=== PATIENT | male | born 1945 | race Caucasian/White ===

== ENCOUNTER → 2017-05-06 | Outpatient (CLI) | payer OTHER, MEDICARE ==
[~2017-05-06] MED LIST: REGADENOSON 0.4 MG/5 ML DISP.SYRIN. IV
== END | disposition home or self-care (01) ==
LOC: ECHO 08:06
DX: I36.1 Nonrheumatic tricuspid (valve) insufficiency (principal); I27.20 Pulmonary hypertension, unspecified; I51.7 Cardiomegaly; I10 Essential (primary) hypertension; J44.9 Chronic obstructive pulmonary disease, unspecified; Z79.01 Long term (current) use of anticoagulants; Z87.891 Personal history of nicotine dependence
CPT/HCPCS: 78452; 93306; 96374; 96376

== ENCOUNTER 2018-06-16 14:18 | Inpatient (IN) | payer OTHER ==
[~2018-06-16] VITALS: Ht 188 cm; Wt 121.8 kg
[~2018-06-16 14:18] MED LIST changes: +ALBU2.5V8 INH; +ASPI-630 PO; +ENOX40DI3 SQ; +ERGO500027 PO; +FERR325T14 PO; +HYDR-2765 PO; +LOSA1TAB22 PO; +LOSA1TAB25 PO; +MULT1TAB90 PO; +PANT40TA3 PO; +POLY2500 PO; +POTA20TA4 PO; -REGADENOSON 0.4 MG/5 ML DISP.SYRIN. IV
[2018-06-16] MEDS ORDERED: VANCOMYCIN PER PHARMACY MC ONE (17:00)
[2018-06-16] MEDS ORDERED: PIPERACILLIN/TAZOBACTAM 4.5 GM in IV NORMAL SALINE 100ML 100 ML IV ONE (17:00)
--- NOTE | 2018-06-16 17:06 | PHYS DOC ---
Past Medical History Past Medical History: Asthma, Hypertension (ISAIAS OLGUIN APRN) Past Surgical History: Knee Replacement, Other Additional Past Surgical Histo: RT ANKLE-2018 (ISAIAS OLGUIN APRN) Alcohol Use: Heavy Drug Use: None (ISAIAS OLGUIN APRN) Adult General Chief Complaint Chief Complaint: ANKLE PROBLEM HPI HPI Patient is a 72 year old male with history of hypertension, who presents to the ED today with an infected surgical wound. Patient states he had right ankle surgery a month ago. Patient states he has had redness and drainage from the ankle for roughly a month. He states today the home health nurse came and assessed his ankle and felt the redness has gotten worse and requested him to come to the emergency room to be evaluated. Patient states he saw the orthopedic doctor 2 months ago. Patient denies any fever. (ISAIAS OLGUIN APRN) Review of Systems Review of Systems Constitutional: Denies fever or chills [] Eyes: Denies change in visual acuity, redness, or eye pain [] HENT: Denies nasal congestion or sore throat [] Respiratory: Denies cough or shortness of breath [] Cardiovascular: No additional information not addressed in HPI [] GI: Denies abdominal pain, nausea, vomiting, bloody stools or diarrhea [] : Denies dysuria or hematuria [] Musculoskeletal: Reports right ankle redness. Integument: Denies rash or skin lesions [] Neurologic: Denies headache, focal weakness or sensory changes [] All other systems were reviewed and found to be within normal limits, except as documented in this note. (ISAIAS OLGUIN APRN) Current Medications Current Medications Current Medications Medications (Trade) Dose Ordered Sig/Liseth Start Time Stop Time Status Last Admin Dose Admin Morphine Sulfate (Morphine Sulfate) 2 mg PRN Q15MIN PRN 06/16/18 17:00 06/17/18 16:59 06/16/18 19:48 2 MG Piperacillin Sod/ Tazobactam Sod 4.5 gm/Sodium Chloride 100 ml @ 200 mls/hr 1X ONCE 06/16/18 17:00 06/16/18 17:29 DC 06/16/18 17:39 200 MLS/HR Sodium Chloride 1,000 ml @ 2,460 mls/hr Q25M 06/16/18 16:56 06/16/18 17:56 DC 06/16/18 18:38 2,460 MLS/HR Vancomycin HCl (Vanco Per Pharmacy) 1 each 1X ONCE 06/16/18 17:00 06/16/18 17:01 UNV Vancomycin HCl 2 gm/Sodium Chloride 500 ml @ 250 mls/hr 1X ONCE 06/16/18 17:15 06/16/18 19:14 DC 06/16/18 18:32 250 MLS/HR (GEORGE JEFFERY MD) Allergies Allergies Allergies Coded Allergies Type Severity Reaction Last Updated Verified shellfish derived Allergy Unknown makes him drowsy 05/07/17 Yes (GEORGE JEFFERY MD) Physical Exam Physical Exam Constitutional: Well developed, well nourished, no acute distress, non-toxic appearance. [] HENT: Normocephalic, atraumatic, bilateral external ears normal, oropharynx moist, no oral exudates, nose normal. [] Eyes: PERRLA, EOMI, conjunctiva normal, no discharge. [] Neck: Normal range of motion, no tenderness, supple, no stridor. [] Cardiovascular:Heart rate regular rhythm, no murmur [] Lungs & Thorax: Bilateral breath sounds clear to auscultation [] Abdomen: Bowel sounds normal, soft, no tenderness, no masses, no pulsatile masses. [] Skin: Warm, dry, no erythema, no rash. [] Back: No tenderness, no CVA tenderness. [] Extremities: Right lateral ankle has a dehisced surgical incision, open areas roughly 7 cm long. There is thin packing in the wound. There is approximately 3 cm of cellulitis around the wound.+2 right pedal pulse. Cap refill less than 2 seconds the right toes. Neurology-Motor function, normal sensory function, no focal deficits noted. [] Psychologic: Affect normal, judgement normal, mood normal. [] (ISAIAS OLGUIN APRN) Current Patient Data Vital Signs Vital Signs Date Time Temp Pulse Resp B/P (MAP) Pulse Ox O2 Delivery O2 Flow Rate FiO2 06/16/18 19:10 86 18 185/94 (124) 97 Room Air 06/16/18 16:25 98.3 98.3 (GEORGE JEFFERY MD) Lab Values Laboratory Tests Test 06/16/18 17:06 White Blood Count 6.2 x10^3/uL (4.0-11.0) Red Blood Count 3.39 x10^6/uL (4.30-5.70) L Hemoglobin 10.3 g/dL (13.0-17.5) L Hematocrit 31.6 % (39.0-53.0) L Mean Corpuscular Volume 93 fL (79-100) Mean Corpuscular Hemoglobin 30 pg (25-35) Mean Corpuscular Hemoglobin Concent 33 g/dL (31-37) Red Cell Distribution Width 15.7 % (11.5-14.5) H Platelet Count 227 x10^3/uL (140-400) Neutrophils (%) (Auto) 73 % (31-73) Lymphocytes (%) (Auto) 16 % (24-48) L Monocytes (%) (Auto) 10 % (0-9) H Eosinophils (%) (Auto) 1 % (0-3) Basophils (%) (Auto) 1 % (0-3) Neutrophils # (Auto) 4.5 x10^3uL (1.8-7.7) Lymphocytes # (Auto) 1.0 x10^3/uL (1.0-4.8) Monocytes # (Auto) 0.6 x10^3/uL (0.0-1.1) Eosinophils # (Auto) 0.0 x10^3/uL (0.0-0.7) Basophils # (Auto) 0.0 x10^3/uL (0.0-0.2) Erythrocyte Sedimentation Rate 19 (0-15) H Prothrombin Time 13.8 SEC (11.7-14.0) Prothrombin Time INR 1.1 (0.8-1.1) PTT 29 SEC (24-38) Sodium Level 134 mmol/L (136-145) L Potassium Level 3.5 mmol/L (3.5-5.1) Chloride Level 96 mmol/L (98-107) L Carbon Dioxide Level 27 mmol/L (21-32) Anion Gap 11 (6-14) Blood Urea Nitrogen 16 mg/dL (8-26) Creatinine 0.9 mg/dL (0.7-1.3) Estimated GFR (Cockcroft-Gault) 83.4 BUN/Creatinine Ratio 18 (6-20) Glucose Level 96 mg/dL (70-99) Lactic Acid Level 3.9 mmol/L (0.4-2.0) H Calcium Level 8.8 mg/dL (8.5-10.1) Total Bilirubin 0.4 mg/dL (0.2-1.0) Aspartate Amino Transferase (AST) 17 U/L (15-37) Alanine Aminotransferase (ALT) 19 U/L (16-63) Alkaline Phosphatase 72 U/L (46-116) Total Protein 6.6 g/dL (6.4-8.2) Albumin 3.1 g/dL (3.4-5.0) L Albumin/Globulin Ratio 0.9 (1.0-1.7) L Procalcitonin < 0.10 ng/mL (0.00-0.10) Laboratory Tests 06/16/18 17:06 Laboratory Tests 06/16/18 17:06 (GEORGE JEFFERY MD) Lab Values Laboratory Tests Test 06/16/18 17:06 White Blood Count 6.2 x10^3/uL (4.0-11.0) Red Blood Count 3.39 x10^6/uL (4.30-5.70) L Hemoglobin 10.3 g/dL (13.0-17.5) L Hematocrit 31.6 % (39.0-53.0) L Mean Corpuscular Volume 93 fL (79-100) Mean Corpuscular Hemoglobin 30 pg (25-35) Mean Corpuscular Hemoglobin Concent 33 g/dL (31-37) Red Cell Distribution Width 15.7 % (11.5-14.5) H Platelet Count 227 x10^3/uL (140-400) Neutrophils (%) (Auto) 73 % (31-73) Lymphocytes (%) (Auto) 16 % (24-48) L Monocytes (%) (Auto) 10 % (0-9) H Eosinophils (%) (Auto) 1 % (0-3) Basophils (%) (Auto) 1 % (0-3) Neutrophils # (Auto) 4.5 x10^3uL (1.8-7.7) Lymphocytes # (Auto) 1.0 x10^3/uL (1.0-4.8) Monocytes # (Auto) 0.6 x10^3/uL (0.0-1.1) Eosinophils # (Auto) 0.0 x10^3/uL (0.0-0.7) Basophils # (Auto) 0.0 x10^3/uL (0.0-0.2) Prothrombin Time 13.8 SEC (11.7-14.0) Prothrombin Time INR 1.1 (0.8-1.1) PTT 29 SEC (24-38) Sodium Level 134 mmol/L (136-145) L Potassium Level 3.5 mmol/L (3.5-5.1) Chloride Level 96 mmol/L (98-107) L Carbon Dioxide Level 27 mmol/L (21-32) Anion Gap 11 (6-14) Blood Urea Nitrogen 16 mg/dL (8-26) Creatinine 0.9 mg/dL (0.7-1.3) Estimated GFR (Cockcroft-Gault) 83.4 BUN/Creatinine Ratio 18 (6-20) Glucose Level 96 mg/dL (70-99) Lactic Acid Level 3.9 mmol/L (0.4-2.0) H Calcium Level 8.8 mg/dL (8.5-10.1) Total Bilirubin 0.4 mg/dL (0.2-1.0) Aspartate Amino Transferase (AST) 17 U/L (15-37) Alanine Aminotransferase (ALT) 19 U/L (16-63) Alkaline Phosphatase 72 U/L (46-116) Total Protein 6.6 g/dL (6.4-8.2) Albumin 3.1 g/dL (3.4-5.0) L Albumin/Globulin Ratio 0.9 (1.0-1.7) L Procalcitonin < 0.10 ng/mL (0.00-0.10) Laboratory Tests 06/16/18 17:06 Laboratory Tests 06/16/18 17:06 (ISAIAS OLGUIN APRN) EKG EKG [] (ISAIAS OLGUIN APRN) Radiology/Procedures Radiology/Procedures [] (ISAIAS OLGUIN APRN) Course & Med Decision Making Course & Med Decision Making Pertinent Labs and Imaging studies reviewed. (See chart for details) This is a 72-year-old male patient presenting to the ED today with an infected surgical wound. Patient had right ankle on the right than a month ago. The wound has been red and draining according to him for 1 month. Vitals on arrival to the ED temperature 98.3, heart rate 98, respiration 18 on room air, O2 sats 99% on room air, blood pressure 164/78. Patient was started on the sepsis protocol including IV fluids, vancomycin and Zosyn. CBC with normal WBC, CMP with no acute findings, right ankle x-rays are negative for any acute findings, lactic at 3.9. Consulted with Dr. Mendez who requested we make patient NPO after midnight, possible surgery tomorrow. Dr. Villafana accepted patient for admission (ISAIAS OLGUIN APRN) Course & Med Decision Making Staff Physician Addendum: I was working in the ER during the course of this patient's visit. I was available for consultation as needed, but I was not directly involved in the care of this patient. (GEORGE JEFFERY MD) Dragon Disclaimer Dragon Disclaimer This electronic medical record was generated, in whole or in part, using a voice recognition dictation system. (ISAIAS OLGUIN APRN) Departure Departure Impression: Primary Impression: Infected abrasion of right ankle Additional Impression: Sepsis Disposition: 09 ADMITTED INPATIENT Condition: STABLE Referrals: FARHAN MARTINEZ MD (PCP) Problem Qualifiers Primary Impression: Infected abrasion of right ankle Encounter type: initial encounter Qualified Codes: S90.511A - Abrasion, right ankle, initial encounter; L08.9 - Local infection of the skin and subcutaneous tissue, unspecified Additional Impression: Sepsis Sepsis type: sepsis due to unspecified organism Qualified Codes: A41.9 - Sepsis, unspecified organism ISAIAS OLGUIN APRN Jun 16, 2018 17:06 GEORGE JEFFERY MD Jun 16, 2018 21:51
[2018-06-16] MEDS ORDERED: VANCOMYCIN 2 GM in IV NORMAL SALINE 500ML BAG 500 ML IV ONE (17:15)
[2018-06-16 17:23] LABS: BASO % 1 % (0-3); EOS % 1 % (0-3); HEMATOCRIT 31.6 % (39.0-53.0); HEMOGLOBIN 10.3 g/dL (13.0-17.5); LYMPH % 16 % (24-48); MEAN CORPUSCULAR HEMOGLOBIN 30 pg (25-35); MEAN CORPUSCULAR HGB CONC 33 g/dL (31-37); MEAN CORPUSCULAR VOLUME 93 fL (79-100); MONO # 0.6 x10^3/uL (0.0-1.1); MONO % 10 % (0-9); NEUT # 4.5 x10^3uL (1.8-7.7); NEUT % 73 % (31-73); PLATELET COUNT 227 x10^3/uL (140-400); RED BLOOD COUNT 3.39 x10^6/uL (4.30-5.70); RED CELL DISTRIBUTION WIDTH 15.7 % (11.5-14.5); WHITE BLOOD COUNT 6.2 x10^3/uL (4.0-11.0)
[2018-06-16] MEDS: IV NORMAL SALINE 1000ML BAG 1,000 ML IV SCH ×3 (17:27→18:38)
[2018-06-16] MEDS: MORPHINE SULFATE 4 MG/ML VIAL. IV/SQ PRN ×3 (17:28→19:48)
[2018-06-16 17:32] LABS: PROTHROMBIN TIME PATIENT 13.8 SEC (11.7-14.0)
[2018-06-16 17:34] LABS: CALCIUM 8.8 mg/dL (8.5-10.1); CREATININE 0.9 mg/dL (0.7-1.3); GFR 83.4; POTASSIUM 3.5 mmol/L (3.5-5.1)
[2018-06-16 17:40] LABS: ALBUMIN 3.1 g/dL (3.4-5.0); ALBUMIN/GLOBULIN RATIO 0.9 (1.0-1.7); TOTAL BILIRUBIN 0.4 mg/dL (0.2-1.0); TOTAL PROTEIN 6.6 g/dL (6.4-8.2)
--- NOTE | 2018-06-16 17:40 | RAD ---
Indication:post op wound on lateral side of right ankle. surgery x1.5 months ago TECHNIQUE: 3 views of the right ankle COMPARISON:05/26/2018 FINDINGS: Status post ORIF of distal fibular fracture with plate and screws. Ankle mortise is intact. Mild ankle soft tissue swelling. No new acute fracture or dislocation. Moderate midfoot osteoarthritis. Vascular calcifications adjacent peripheral vascular disease. IMPRESSION: No acute findings. Electronically signed by: Bulmaro Anguiano DO (06/16/2018 5:37 PM) [facility]
--- NOTE | 2018-06-16 19:40 | PDOC1 ---
History and Physical Date of Admission Date of Admission DATE: 06/16/18 TIME: 19:35 Identification/Chief Complaint Chief Complaint oozing,draining wound right ankle Source Source: Caregiver, Chart review, Patient History of Present Illness History of Present Illness 72-year-old male, home health nurse recommended him to go to the emergency room because of wound draining the right ankle postop area. He had an orif rt ankle, by [facility] orthopedic group, was discharged appropriately with home health and the wound is oozing and draining. Labs are otherwise unremarkable. NO fevers at home. Blood pressure on the high side - he takes unrecalled BP meds at home. Orthopedics has been consulted and they plan for possibly some OR tomorrow, hence we'll make nothing by mouth post midnight. Otherwise his pain is rather controlled after ER management. Nontoxic appearing Past Medical History Cardiovascular: CAD, HTN Past Surgical History Past Surgical History: Other (ORIF/ rt ankle sx May 04, 2018) Family History Family History: Diabetes Social History Smoke: No ALCOHOL: none Drugs: None Current Medications Current Medications Current Medications Sodium Chloride 1,000 ml @ 2,460 mls/hr Q25M IV Last administered on at 18:38; Start 06/16/18 at 16:56; Stop 06/16/18 at 17:56; Status DC Piperacillin Sod/ Tazobactam Sod 4.5 gm/Sodium Chloride 100 ml @ 200 mls/hr 1X ONCE IV Last administered on 06/16/18at 17:39; Start 06/16/18 at 17:00; Stop 06/16/18 at 17:29; Status DC Vancomycin HCl (Vanco Per Pharmacy) 1 each 1X ONCE [facility] ; Start 06/16/18 at 17:00 ; Stop 06/16/18 at 17:01; Status UNV Morphine Sulfate (Morphine Sulfate) 2 mg PRN Q15MIN PRN IV/SQ PAIN GREATER THAN 3/10 Last administered on 06/16/18at 18:32; Start 06/16/18 at 17:00; Stop at 16:59 Vancomycin HCl 2 gm/Sodium Chloride 500 ml @ 250 mls/hr 1X ONCE IV Last administered on 06/16/18at 18:32; Start 06/16/18 at 17:15; Stop 06/16/18 at 19:14 ; Status DC Active Scripts Active Thera-M Tablet (Multivits,Ca,Minerals/Iron/Fa) 1 Each Tablet 1 Tab PO DAILY 30 Days Vitamin D2 (Ergocalciferol (Vitamin D2)) 50,000 Unit Capsule 50,000 Unit PO TU 7 Days Klor-Con M20 (Potassium Chloride) 20 Meq Tab.er.prt 20 Meq PO DAILYWBKFT 10 Days Hydrocodone-Apap 7.5-325 (Hydrocodone Bit/Acetaminophen) 1 Tab Tablet 1 Tab PO PRN Q4HRS PRN 10 Days Enoxaparin Sodium 40 Mg/0.4 Ml Disp.syrin 40 Mg SQ Q24H 14 Days Reported Losartan-Hctz 100-25 Mg Tab (Losartan/Hydrochlorothiazide) 1 Each Tablet 1 Tab PO DAILY Polyethylene Glycol 3350 2,500 Gm Powder 17 Gm PO DAILY Protonix (Pantoprazole Sodium) 40 Mg Tablet.dr 40 Mg PO DAILY07 Ferrous Sulfate 325 Mg Tablet 325 Mg PO BID Proair Hfa Inhaler (Albuterol Sulfate) 8.5 Gm Hfa.aer.ad 2 Puff INH PRN Q6HRS PRN Aspirin 81 Mg Tab.chew 81 Mg PO DAILY Allergies Allergies: Coded Allergies: shellfish derived (Verified Allergy, Unknown, makes him drowsy, 05/07/17) ROS Review of System As per history of present illness, the rest of ROS 14 point negative Physical Exam General: Alert, Oriented X3, Cooperative, No acute distress HEENT: Atraumatic, PERRLA, EOMI Lungs: Clear to auscultation, Normal air movement Heart: S1S2, RRR, no gallops, no murmurs Cardiovascular: S1, S2 Abdomen: Normal bowel sounds, Soft, No tenderness, No hepatosplenomegaly, No masses Male Genitals Exam: normal genitalia, normal prostate PELVIC: Nml ext genitalia Extremities: No clubbing, No cyanosis, Normal pulses Skin: Other (right ankle area lateral side is oozing, juicy draining with some right foot swelling and right ankle swelling around it) Neuro: Normal gait, Normal speech, Strength at 5/5 X4 ext, Normal tone, Sensation intact, Cranial nerves 3-12 NL, Reflexes 2+ Psych/Mental Status: Mental status NL, Mood NL Vitals Vitals Vital Signs Date Time Temp Pulse Resp B/P (MAP) Pulse Ox O2 Delivery O2 Flow Rate FiO2 2/25/19 16:25 98.3 98 18 164/78 (106) 99 Room Air 98.3 Labs Labs Laboratory Tests Test 06/16/18 17:06 White Blood Count 6.2 x10^3/uL (4.0-11.0) Red Blood Count 3.39 x10^6/uL (4.30-5.70) Hemoglobin 10.3 g/dL (13.0-17.5) Hematocrit 31.6 % (39.0-53.0) Mean Corpuscular Volume 93 fL (79-100) Mean Corpuscular Hemoglobin 30 pg (25-35) Mean Corpuscular Hemoglobin Concent 33 g/dL (31-37) Red Cell Distribution Width 15.7 % (11.5-14.5) Platelet Count 227 x10^3/uL (140-400) Neutrophils (%) (Auto) 73 % (31-73) Lymphocytes (%) (Auto) 16 % (24-48) Monocytes (%) (Auto) 10 % (0-9) Eosinophils (%) (Auto) 1 % (0-3) Basophils (%) (Auto) 1 % (0-3) Neutrophils # (Auto) 4.5 x10^3uL (1.8-7.7) Lymphocytes # (Auto) 1.0 x10^3/uL (1.0-4.8) Monocytes # (Auto) 0.6 x10^3/uL (0.0-1.1) Eosinophils # (Auto) 0.0 x10^3/uL (0.0-0.7) Basophils # (Auto) 0.0 x10^3/uL (0.0-0.2) Prothrombin Time 13.8 SEC (11.7-14.0) Prothromb Time International Ratio 1.1 (0.8-1.1) Activated Partial Thromboplast Time 29 SEC (24-38) Sodium Level 134 mmol/L (136-145) Potassium Level 3.5 mmol/L (3.5-5.1) Chloride Level 96 mmol/L (98-107) Carbon Dioxide Level 27 mmol/L (21-32) Anion Gap 11 (6-14) Blood Urea Nitrogen 16 mg/dL (8-26) Creatinine 0.9 mg/dL (0.7-1.3) Estimated GFR (Cockcroft-Gault) 83.4 BUN/Creatinine Ratio 18 (6-20) Glucose Level 96 mg/dL (70-99) Lactic Acid Level 3.9 mmol/L (0.4-2.0) Calcium Level 8.8 mg/dL (8.5-10.1) Total Bilirubin 0.4 mg/dL (0.2-1.0) Aspartate Amino Transf (AST/SGOT) 17 U/L (15-37) Alanine Aminotransferase (ALT/SGPT) 19 U/L (16-63) Alkaline Phosphatase 72 U/L (46-116) Total Protein 6.6 g/dL (6.4-8.2) Albumin 3.1 g/dL (3.4-5.0) Albumin/Globulin Ratio 0.9 (1.0-1.7) Procalcitonin < 0.10 ng/mL (0.00-0.10) Laboratory Tests Test 06/16/18 17:06 White Blood Count 6.2 x10^3/uL (4.0-11.0) Red Blood Count 3.39 x10^6/uL (4.30-5.70) Hemoglobin 10.3 g/dL (13.0-17.5) Hematocrit 31.6 % (39.0-53.0) Mean Corpuscular Volume 93 fL (79-100) Mean Corpuscular Hemoglobin 30 pg (25-35) Mean Corpuscular Hemoglobin Concent 33 g/dL (31-37) Red Cell Distribution Width 15.7 % (11.5-14.5) Platelet Count 227 x10^3/uL (140-400) Neutrophils (%) (Auto) 73 % (31-73) Lymphocytes (%) (Auto) 16 % (24-48) Monocytes (%) (Auto) 10 % (0-9) Eosinophils (%) (Auto) 1 % (0-3) Basophils (%) (Auto) 1 % (0-3) Neutrophils # (Auto) 4.5 x10^3uL (1.8-7.7) Lymphocytes # (Auto) 1.0 x10^3/uL (1.0-4.8) Monocytes # (Auto) 0.6 x10^3/uL (0.0-1.1) Eosinophils # (Auto) 0.0 x10^3/uL (0.0-0.7) Basophils # (Auto) 0.0 x10^3/uL (0.0-0.2) Prothrombin Time 13.8 SEC (11.7-14.0) Prothromb Time International Ratio 1.1 (0.8-1.1) Activated Partial Thromboplast Time 29 SEC (24-38) Sodium Level 134 mmol/L (136-145) Potassium Level 3.5 mmol/L (3.5-5.1) Chloride Level 96 mmol/L (98-107) Carbon Dioxide Level 27 mmol/L (21-32) Anion Gap 11 (6-14) Blood Urea Nitrogen 16 mg/dL (8-26) Creatinine 0.9 mg/dL (0.7-1.3) Estimated GFR (Cockcroft-Gault) 83.4 BUN/Creatinine Ratio 18 (6-20) Glucose Level 96 mg/dL (70-99) Lactic Acid Level 3.9 mmol/L (0.4-2.0) Calcium Level 8.8 mg/dL (8.5-10.1) Total Bilirubin 0.4 mg/dL (0.2-1.0) Aspartate Amino Transf (AST/SGOT) 17 U/L (15-37) Alanine Aminotransferase (ALT/SGPT) 19 U/L (16-63) Alkaline Phosphatase 72 U/L (46-116) Total Protein 6.6 g/dL (6.4-8.2) Albumin 3.1 g/dL (3.4-5.0) Albumin/Globulin Ratio 0.9 (1.0-1.7) Procalcitonin < 0.10 ng/mL (0.00-0.10) VTE Prophylaxis Ordered VTE Prophylaxis Devices: Yes VTE Pharmacological Prophylaxi: Yes Assessment/Plan Assessment/Plan Right ankle postop problem Right ankle wound Accel hypertension POA Mild PCM-albumin 3.1 Mild hyponatremia-sodium 134 PLAN: ortho consulted, nothing by mouth post midnight Maybe 1 L IV fluid for the hypornatremia May consult nutrition regarding the PCM I have reconciled home meds Labetolol when necessary Hold aspirin since OR plans tomorrow JAZMIN OSULLIVAN MD Jun 16, 2018 19:40
[2018-06-16] MEDS ORDERED: ACETAMINOPHEN 325 MG TABLET. PO PRN (19:45)
[2018-06-16] MEDS ORDERED: ONDANSETRON PF 4 MG/2 ML VIAL. IV PRN ×2 (19:45)
[2018-06-16] MEDS ORDERED: LABETALOL 20 MG/4 ML DISP.SYRIN. IVP PRN (19:45)
[2018-06-16] MEDS ORDERED: MORPHINE SULFATE 4 MG/ML VIAL. IV PRN ×2 (19:45)
[2018-06-16] MEDS ORDERED: IV NORMAL SALINE 1000ML BAG 1,000 ML IV ONE ×2 (19:45→20:00)
[2018-06-16] MEDS ORDERED: ALBUTEROL SULFATE 2.5 MG/3 ML NEBU. INH PRN (19:45)
[2018-06-16] MEDS: HYDROcodone/APAP 7.5/325MG 1 TAB TABLET PO PRN (20:05)
[2018-06-16 21:00] VITALS: BP 152/89
[2018-06-16 22:59] VITALS: BP 143/81
[2018-06-17] MEDS: HYDROcodone/APAP 7.5/325MG 1 TAB TABLET PO PRN ×2 (00:13→23:47)
[2018-06-17] MEDS: FERROUS SULFATE 325 MG TABLET. PO SCH ×3 (00:13→19:57)
[2018-06-17 02:52] VITALS: BP 130/65
[2018-06-17 06:09] LABS: BASO % 0 % (0-3); EOS # 0.1 x10^3/uL (0.0-0.7); EOS % 2 % (0-3); HEMATOCRIT 24.7 % (39.0-53.0); HEMOGLOBIN 8.1 g/dL (13.0-17.5); LYMPH % 21 % (24-48); MEAN CORPUSCULAR HEMOGLOBIN 31 pg (25-35); MEAN CORPUSCULAR HGB CONC 33 g/dL (31-37); MEAN CORPUSCULAR VOLUME 93 fL (79-100); MONO # 0.6 x10^3/uL (0.0-1.1); MONO % 12 % (0-9); NEUT % 65 % (31-73); PLATELET COUNT 187 x10^3/uL (140-400); RED BLOOD COUNT 2.67 x10^6/uL (4.30-5.70); RED CELL DISTRIBUTION WIDTH 15.8 % (11.5-14.5); WHITE BLOOD COUNT 4.7 x10^3/uL (4.0-11.0)
[2018-06-17] MEDS: PANTOPRAZOLE 40 MG TABLET.DR. PO SCH (06:31)
[2018-06-17 06:38] LABS: ALBUMIN 2.6 g/dL (3.4-5.0); CALCIUM 7.9 mg/dL (8.5-10.1); CREATININE 0.9 mg/dL (0.7-1.3); GFR 83.4; POTASSIUM 3.2 mmol/L (3.5-5.1); TOTAL BILIRUBIN 0.4 mg/dL (0.2-1.0); TOTAL PROTEIN 5.3 g/dL (6.4-8.2)
[2018-06-17 07:00] VITALS: BP 141/76
[2018-06-17] MEDS ORDERED: POTASSIUM CHLORIDE 20 MEQ TABLET.ER. PO SCH (08:00)
[2018-06-17] MEDS: hydroCHLOROthiazide 25 MG TABLET PO SCH (08:39)
[2018-06-17] MEDS: oxyCODONE/APAP 5/325 1 TAB TABLET PO PRN ×3 (08:39→19:14)
[2018-06-17] MEDS: MULTIVITAMIN with MINERAL TABLET. PO SCH (08:39)
[2018-06-17] MEDS: LOSARTAN POTASSIUM 50 MG TABLET. PO SCH (08:40)
[2018-06-17] MEDS: POLYETHYLENE GLYCOL 3350 17 GM PACKET. PO SCH (08:41)
[2018-06-17] MEDS ORDERED: PIP/TAZO PER PHARMACY MC PRN (08:45)
[2018-06-17] MEDS ORDERED: NON FORMULARY ITEM (Losartan/Hydrochlorothiazide (Losartan-Hctz 100-25 Mg Tab) 1 TAB) PO SCH (09:00)
[2018-06-17] MEDS: VANCOMYCIN PER PHARMACY MC PRN (09:09)
--- NOTE | 2018-06-17 09:10 | NUR ---
Pharmacy Vancomycin Dosing Note S:Consulted to monitor and dose vancomycin started 06/16/18. O:DUKE HUNTER is a 72 year old M with right ankle wound infection. Height: 6 feet, 2 inches Weight: 129.3 kg Dosing Weight: Actual Other Antibiotics: ZOSYN 3.375G IV Q6HRS LABS: Last BUN: 13 Last Creatinine: 0.9 Creatinine Clearance: 98 mL/min Last WBC: 4.7 Last Procalcitonin: < 0.1 Tmax (past 24 hours): 98.8 Microbiology: BLOOD AND WOUND CX PENDING I/O: 1800/output not documented; 3 voids A: Patient requires vancomycin for a wound infection, goal trough 10-20 mcg/ml. Patient's SCr is 0.9 with an eCrCl of 98 (likely falsely high due to weight). He received vancomycin 2000 mg x 1 dose last evening in the ER. P: 1. Initiate Vancomycin 2000 mg IV q12h 2. Follow up Trough level on 06/18/18 at 0930 3. Pharmacy will continue to monitor, follow and adjust therapy as needed. CHOLO CHRISTIANSEN [facility], 06/17/18 0910
--- NOTE | 2018-06-17 09:49 | PDOC ---
PROGRESS NOTES Chief Complaint Chief Complaint Right ankle postop problem Right ankle wound Accel hypertension POA Mild PCM-albumin 3.1 Mild hyponatremia-sodium 134 History of Present Illness History of Present Illness No change from the last time I saw him which was within the last 12 hours He thinks his special boot caused his current problems now abrading his right ankle foot /wound Has been nothing by mouth as I was told by mid-level provider yesterday that orthopedics is planning on some OR today K low mild Plan: await orthopedics rounds, keep NPO inc kcl to 40 PO qd Cont vanc and zosyn per pharmacy started at ER ESR 19 Vitals Vitals Vital Signs Date Time Temp Pulse Resp B/P (MAP) Pulse Ox O2 Delivery O2 Flow Rate FiO2 06/17/18 08:40 69 141/76 06/17/18 08:39 Room Air 06/17/18 07:59 98 06/17/18 07:00 97.7 16 97.7 Physical Exam General: Alert, Oriented X3, Cooperative, No acute distress Lungs: Clear Abdomen: Normal bowel sounds, Soft, No tenderness, No hepatosplenomegaly, No masses Extremities: No clubbing, No cyanosis, Normal pulses Skin: Other (right ankle area lateral side is oozing, juicy draining with some right foot swelling and right ankle swelling around it) Labs LABS Laboratory Tests Test 06/16/18 17:06 06/16/18 20:55 06/17/18 05:20 White Blood Count 6.2 x10^3/uL (4.0-11.0) 4.7 x10^3/uL (4.0-11.0) Red Blood Count 3.39 x10^6/uL (4.30-5.70) 2.67 x10^6/uL (4.30-5.70) Hemoglobin 10.3 g/dL (13.0-17.5) 8.1 g/dL (13.0-17.5) Hematocrit 31.6 % (39.0-53.0) 24.7 % (39.0-53.0) Mean Corpuscular Volume 93 fL (79-100) 93 fL (79-100) Mean Corpuscular Hemoglobin 30 pg (25-35) 31 pg (25-35) Mean Corpuscular Hemoglobin Concent 33 g/dL (31-37) 33 g/dL (31-37) Red Cell Distribution Width 15.7 % (11.5-14.5) 15.8 % (11.5-14.5) Platelet Count 227 x10^3/uL (140-400) 187 x10^3/uL (140-400) Neutrophils (%) (Auto) 73 % (31-73) 65 % (31-73) Lymphocytes (%) (Auto) 16 % (24-48) 21 % (24-48) Monocytes (%) (Auto) 10 % (0-9) 12 % (0-9) Eosinophils (%) (Auto) 1 % (0-3) 2 % (0-3) Basophils (%) (Auto) 1 % (0-3) 0 % (0-3) Neutrophils # (Auto) 4.5 x10^3uL (1.8-7.7) 3.0 x10^3uL (1.8-7.7) Lymphocytes # (Auto) 1.0 x10^3/uL (1.0-4.8) 1.0 x10^3/uL (1.0-4.8) Monocytes # (Auto) 0.6 x10^3/uL (0.0-1.1) 0.6 x10^3/uL (0.0-1.1) Eosinophils # (Auto) 0.0 x10^3/uL (0.0-0.7) 0.1 x10^3/uL (0.0-0.7) Basophils # (Auto) 0.0 x10^3/uL (0.0-0.2) 0.0 x10^3/uL (0.0-0.2) Erythrocyte Sedimentation Rate 19 (0-15) Prothrombin Time 13.8 SEC (11.7-14.0) Prothromb Time International Ratio 1.1 (0.8-1.1) Activated Partial Thromboplast Time 29 SEC (24-38) Sodium Level 134 mmol/L (136-145) 137 mmol/L (136-145) Potassium Level 3.5 mmol/L (3.5-5.1) 3.2 mmol/L (3.5-5.1) Chloride Level 96 mmol/L (98-107) 101 mmol/L (98-107) Carbon Dioxide Level 27 mmol/L (21-32) 28 mmol/L (21-32) Anion Gap 11 (6-14) 8 (6-14) Blood Urea Nitrogen 16 mg/dL (8-26) 13 mg/dL (8-26) Creatinine 0.9 mg/dL (0.7-1.3) 0.9 mg/dL (0.7-1.3) Estimated GFR (Cockcroft-Gault) 83.4 83.4 BUN/Creatinine Ratio 18 (6-20) 14 (6-20) Glucose Level 96 mg/dL (70-99) 109 mg/dL (70-99) Lactic Acid Level 3.9 mmol/L (0.4-2.0) 1.9 mmol/L (0.4-2.0) Calcium Level 8.8 mg/dL (8.5-10.1) 7.9 mg/dL (8.5-10.1) Total Bilirubin 0.4 mg/dL (0.2-1.0) 0.4 mg/dL (0.2-1.0) Aspartate Amino Transf (AST/SGOT) 17 U/L (15-37) 12 U/L (15-37) Alanine Aminotransferase (ALT/SGPT) 19 U/L (16-63) 14 U/L (16-63) Alkaline Phosphatase 72 U/L (46-116) 56 U/L (46-116) Total Protein 6.6 g/dL (6.4-8.2) 5.3 g/dL (6.4-8.2) Albumin 3.1 g/dL (3.4-5.0) 2.6 g/dL (3.4-5.0) Albumin/Globulin Ratio 0.9 (1.0-1.7) 1.0 (1.0-1.7) Procalcitonin < 0.10 ng/mL (0.00-0.10) Review of Systems Review of Systems Right foot, ankle oozing/draining otherwise rest of 14 systems negative Comment Review of Relevant I have reviewed the following items carl (where applicable) has been applied. Labs Laboratory Tests Test 06/16/18 17:06 06/16/18 20:55 06/17/18 05:20 White Blood Count 6.2 x10^3/uL (4.0-11.0) 4.7 x10^3/uL (4.0-11.0) Red Blood Count 3.39 x10^6/uL (4.30-5.70) 2.67 x10^6/uL (4.30-5.70) Hemoglobin 10.3 g/dL (13.0-17.5) 8.1 g/dL (13.0-17.5) Hematocrit 31.6 % (39.0-53.0) 24.7 % (39.0-53.0) Mean Corpuscular Volume 93 fL (79-100) 93 fL (79-100) Mean Corpuscular Hemoglobin 30 pg (25-35) 31 pg (25-35) Mean Corpuscular Hemoglobin Concent 33 g/dL (31-37) 33 g/dL (31-37) Red Cell Distribution Width 15.7 % (11.5-14.5) 15.8 % (11.5-14.5) Platelet Count 227 x10^3/uL (140-400) 187 x10^3/uL (140-400) Neutrophils (%) (Auto) 73 % (31-73) 65 % (31-73) Lymphocytes (%) (Auto) 16 % (24-48) 21 % (24-48) Monocytes (%) (Auto) 10 % (0-9) 12 % (0-9) Eosinophils (%) (Auto) 1 % (0-3) 2 % (0-3) Basophils (%) (Auto) 1 % (0-3) 0 % (0-3) Neutrophils # (Auto) 4.5 x10^3uL (1.8-7.7) 3.0 x10^3uL (1.8-7.7) Lymphocytes # (Auto) 1.0 x10^3/uL (1.0-4.8) 1.0 x10^3/uL (1.0-4.8) Monocytes # (Auto) 0.6 x10^3/uL (0.0-1.1) 0.6 x10^3/uL (0.0-1.1) Eosinophils # (Auto) 0.0 x10^3/uL (0.0-0.7) 0.1 x10^3/uL (0.0-0.7) Basophils # (Auto) 0.0 x10^3/uL (0.0-0.2) 0.0 x10^3/uL (0.0-0.2) Erythrocyte Sedimentation Rate 19 (0-15) Prothrombin Time 13.8 SEC (11.7-14.0) Prothromb Time International Ratio 1.1 (0.8-1.1) Activated Partial Thromboplast Time 29 SEC (24-38) Sodium Level 134 mmol/L (136-145) 137 mmol/L (136-145) Potassium Level 3.5 mmol/L (3.5-5.1) 3.2 mmol/L (3.5-5.1) Chloride Level 96 mmol/L (98-107) 101 mmol/L (98-107) Carbon Dioxide Level 27 mmol/L (21-32) 28 mmol/L (21-32) Anion Gap 11 (6-14) 8 (6-14) Blood Urea Nitrogen 16 mg/dL (8-26) 13 mg/dL (8-26) Creatinine 0.9 mg/dL (0.7-1.3) 0.9 mg/dL (0.7-1.3) Estimated GFR (Cockcroft-Gault) 83.4 83.4 BUN/Creatinine Ratio 18 (6-20) 14 (6-20) Glucose Level 96 mg/dL (70-99) 109 mg/dL (70-99) Lactic Acid Level 3.9 mmol/L (0.4-2.0) 1.9 mmol/L (0.4-2.0) Calcium Level 8.8 mg/dL (8.5-10.1) 7.9 mg/dL (8.5-10.1) Total Bilirubin 0.4 mg/dL (0.2-1.0) 0.4 mg/dL (0.2-1.0) Aspartate Amino Transf (AST/SGOT) 17 U/L (15-37) 12 U/L (15-37) Alanine Aminotransferase (ALT/SGPT) 19 U/L (16-63) 14 U/L (16-63) Alkaline Phosphatase 72 U/L (46-116) 56 U/L (46-116) Total Protein 6.6 g/dL (6.4-8.2) 5.3 g/dL (6.4-8.2) Albumin 3.1 g/dL (3.4-5.0) 2.6 g/dL (3.4-5.0) Albumin/Globulin Ratio 0.9 (1.0-1.7) 1.0 (1.0-1.7) Procalcitonin < 0.10 ng/mL (0.00-0.10) Laboratory Tests Test 06/16/18 17:06 06/16/18 20:55 06/17/18 05:20 White Blood Count 6.2 x10^3/uL (4.0-11.0) 4.7 x10^3/uL (4.0-11.0) Red Blood Count 3.39 x10^6/uL (4.30-5.70) 2.67 x10^6/uL (4.30-5.70) Hemoglobin 10.3 g/dL (13.0-17.5) 8.1 g/dL (13.0-17.5) Hematocrit 31.6 % (39.0-53.0) 24.7 % (39.0-53.0) Mean Corpuscular Volume 93 fL (79-100) 93 fL (79-100) Mean Corpuscular Hemoglobin 30 pg (25-35) 31 pg (25-35) Mean Corpuscular Hemoglobin Concent 33 g/dL (31-37) 33 g/dL (31-37) Red Cell Distribution Width 15.7 % (11.5-14.5) 15.8 % (11.5-14.5) Platelet Count 227 x10^3/uL (140-400) 187 x10^3/uL (140-400) Neutrophils (%) (Auto) 73 % (31-73) 65 % (31-73) Lymphocytes (%) (Auto) 16 % (24-48) 21 % (24-48) Monocytes (%) (Auto) 10 % (0-9) 12 % (0-9) Eosinophils (%) (Auto) 1 % (0-3) 2 % (0-3) Basophils (%) (Auto) 1 % (0-3) 0 % (0-3) Neutrophils # (Auto) 4.5 x10^3uL (1.8-7.7) 3.0 x10^3uL (1.8-7.7) Lymphocytes # (Auto) 1.0 x10^3/uL (1.0-4.8) 1.0 x10^3/uL (1.0-4.8) Monocytes # (Auto) 0.6 x10^3/uL (0.0-1.1) 0.6 x10^3/uL (0.0-1.1) Eosinophils # (Auto) 0.0 x10^3/uL (0.0-0.7) 0.1 x10^3/uL (0.0-0.7) Basophils # (Auto) 0.0 x10^3/uL (0.0-0.2) 0.0 x10^3/uL (0.0-0.2) Erythrocyte Sedimentation Rate 19 (0-15) Prothrombin Time 13.8 SEC (11.7-14.0) Prothromb Time International Ratio 1.1 (0.8-1.1) Activated Partial Thromboplast Time 29 SEC (24-38) Sodium Level 134 mmol/L (136-145) 137 mmol/L (136-145) Potassium Level 3.5 mmol/L (3.5-5.1) 3.2 mmol/L (3.5-5.1) Chloride Level 96 mmol/L (98-107) 101 mmol/L (98-107) Carbon Dioxide Level 27 mmol/L (21-32) 28 mmol/L (21-32) Anion Gap 11 (6-14) 8 (6-14) Blood Urea Nitrogen 16 mg/dL (8-26) 13 mg/dL (8-26) Creatinine 0.9 mg/dL (0.7-1.3) 0.9 mg/dL (0.7-1.3) Estimated GFR (Cockcroft-Gault) 83.4 83.4 BUN/Creatinine Ratio 18 (6-20) 14 (6-20) Glucose Level 96 mg/dL (70-99) 109 mg/dL (70-99) Lactic Acid Level 3.9 mmol/L (0.4-2.0) 1.9 mmol/L (0.4-2.0) Calcium Level 8.8 mg/dL (8.5-10.1) 7.9 mg/dL (8.5-10.1) Total Bilirubin 0.4 mg/dL (0.2-1.0) 0.4 mg/dL (0.2-1.0) Aspartate Amino Transf (AST/SGOT) 17 U/L (15-37) 12 U/L (15-37) Alanine Aminotransferase (ALT/SGPT) 19 U/L (16-63) 14 U/L (16-63) Alkaline Phosphatase 72 U/L (46-116) 56 U/L (46-116) Total Protein 6.6 g/dL (6.4-8.2) 5.3 g/dL (6.4-8.2) Albumin 3.1 g/dL (3.4-5.0) 2.6 g/dL (3.4-5.0) Albumin/Globulin Ratio 0.9 (1.0-1.7) 1.0 (1.0-1.7) Procalcitonin < 0.10 ng/mL (0.00-0.10) Medications Current Medications Sodium Chloride 1,000 ml @ 2,460 mls/hr Q25M IV Last administered on at 18:38; Start 06/16/18 at 16:56; Stop 06/16/18 at 17:56; Status DC Piperacillin Sod/ Tazobactam Sod 4.5 gm/Sodium Chloride 100 ml @ 200 mls/hr 1X ONCE IV Last administered on 06/16/18at 17:39; Start 06/16/18 at 17:00; Stop 06/16/18 at 17:29; Status DC Vancomycin HCl (Vanco Per Pharmacy) 1 each 1X ONCE MC ; Start 06/16/18 at 17:00 ; Stop 06/16/18 at 17:01; Status UNV Morphine Sulfate (Morphine Sulfate) 2 mg PRN Q15MIN PRN IV/SQ PAIN GREATER THAN 3/10 Last administered on 06/16/18at 19:48; Start 06/16/18 at 17:00; Stop at 08:46; Status DC Vancomycin HCl 2 gm/Sodium Chloride 500 ml @ 250 mls/hr 1X ONCE IV Last administered on 06/16/18at 18:32; Start 06/16/18 at 17:15; Stop 06/16/18 at 19:14 ; Status DC Morphine Sulfate (Morphine Sulfate) 2 mg PRN Q2HR PRN IV PAIN; Start 06/16/18 at 19:45 Ondansetron HCl (Zofran) 4 mg PRN Q6HRS PRN IV NAUSEA/VOMITING; Start 06/16/18 at 19:45 Oxycodone/ Acetaminophen (Percocet 5/325) 1 tab PRN Q4HRS PRN PO PAIN 2ND CHOICE Last administered on 06/17/18at 08:39; Start 06/16/18 at 19:45 Labetalol HCl (Normodyne Iv Push) 10 mg PRN Q2HR PRN IVP HYPERTENSION, SEE COMMENTS; Start 06/16/18 at 19:45 Diphenhydramine HCl (Benadryl) 25 mg PRN QHS PRN PO INSOMNIA; Start 06/16/18 at 19:45 Albuterol Sulfate (Ventolin Neb Soln) 2.5 mg PRN Q6HRS PRN INH SHORTNESS OF BREATH Last administered on 06/17/18at 08:03; Start 06/16/18 at 19:45 Ergocalciferol (Vitamin D2) 50,000 unit QTU PO ; Start 06/17/18 at 16:00 Ferrous Sulfate (Feosol) 325 mg BID PO Last administered on 06/17/18at 08:39; Start 06/16/18 at 21:00 Acetaminophen/ Hydrocodone Bitart (Lortab 7.5/325) 1 tab PRN Q4HRS PRN PO PAIN MILD/MOD 1ST CHOICE Last administered on 06/17/18at 00:13; Start 06/16/18 at 19: 45 Multivitamins (Thera M Plus) 1 tab DAILY PO Last administered on 06/17/18at 08: 39; Start 06/17/18 at 09:00 Pantoprazole Sodium (Protonix) 40 mg DAILY07 PO ; Start 06/17/18 at 07:00 Potassium Chloride (Klor-Con) 20 meq DAILYWBKFT PO ; Start 06/17/18 at 08:00; Stop 06/17/18 at 08:34; Status DC Non-Formulary Medication (Losartan/ Hydrochlorothiazide (Losartan-Hctz 100-25 Mg Tab)) 1 tab DAILY PO ; Start 06/17/18 at 09:00; Status UNV Polyethylene Glycol (miraLAX PACKET) 17 gm DAILY PO ; Start 06/17/18 at 09:00 Losartan Potassium (Cozaar) 100 mg DAILY PO Last administered on 06/17/18at 08: 40; Start 06/17/18 at 09:00 Hydrochlorothiazide (Hydrodiuril) 25 mg DAILY PO Last administered on at 08:39; Start 06/17/18 at 09:00 Sodium Chloride 1,000 ml @ 100 mls/hr 1X ONCE IV Last administered on at 08:40; Start 06/16/18 at 20:00; Stop 06/17/18 at 05:59; Status DC Ondansetron HCl (Zofran) 4 mg PRN Q8HRS PRN IV NAUSEA/VOMITING; Start 06/16/18 at 19:45; Stop 06/17/18 at 08:47; Status DC Morphine Sulfate (Morphine Sulfate) 4 mg PRN Q2HR PRN IV PAIN; Start 06/16/18 at 19:45; Stop 06/17/18 at 08:47; Status DC Acetaminophen (Tylenol) 650 mg PRN Q4HRS PRN PO FEVER; Start 06/16/18 at 19:45 ; Stop 06/17/18 at 19:44 Sodium Chloride 1,000 ml @ 125 mls/hr 1X ONCE IV ; Start 06/16/18 at 19:45; Stop 06/17/18 at 03:44; Status DC Potassium Chloride (Klor-Con) 40 meq DAILYWBKFT PO ; Start 06/17/18 at 09:00 Vancomycin HCl (Vanco Per Pharmacy) 1 each PRN DAILY PRN MC SEE COMMENTS Last administered on 06/17/18at 09:09; Start 06/17/18 at 08:45 Piperacillin Sod/ Tazobactam Sod (Zosyn Per Pharmacy) 1 each PRN DAILY PRN MC SEE COMMENTS; Start 06/17/18 at 08:45 Piperacillin Sod/ Tazobactam Sod 3.375 gm/Sodium Chloride 50 ml @ 100 mls/hr Q6HRS IV ; Start 06/17/18 at 09:00 Vancomycin HCl 2 gm/Sodium Chloride 500 ml @ 250 mls/hr Q12H IV ; Start at 10:00 Vancomycin HCl (Vancomycin Trough Level) 1 each 1X ONCE MC ; Start 06/18/18 at 09:30; Stop 06/18/18 at 09:31 Active Scripts Active Thera-M Tablet (Multivits,Ca,Minerals/Iron/Fa) 1 Each Tablet 1 Tab PO DAILY 30 Days Vitamin D2 (Ergocalciferol (Vitamin D2)) 50,000 Unit Capsule 50,000 Unit PO TU 7 Days Klor-Con M20 (Potassium Chloride) 20 Meq Tab.er.prt 20 Meq PO DAILYWBKFT 10 Days Hydrocodone-Apap 7.5-325 (Hydrocodone Bit/Acetaminophen) 1 Tab Tablet 1 Tab PO PRN Q4HRS PRN 10 Days Enoxaparin Sodium 40 Mg/0.4 Ml Disp.syrin 40 Mg SQ Q24H 14 Days Reported Losartan-Hctz 100-25 Mg Tab (Losartan/Hydrochlorothiazide) 1 Each Tablet 1 Tab PO DAILY Polyethylene Glycol 3350 2,500 Gm Powder 17 Gm PO DAILY Protonix (Pantoprazole Sodium) 40 Mg Tablet.dr 40 Mg PO DAILY07 Ferrous Sulfate 325 Mg Tablet 325 Mg PO BID Proair Hfa Inhaler (Albuterol Sulfate) 8.5 Gm Hfa.aer.ad 2 Puff INH PRN Q6HRS PRN Aspirin 81 Mg Tab.chew 81 Mg PO DAILY Vitals/I & O Vital Sign - Last 24 Hours 06/16/18 06/16/18 06/16/18 06/16/18 16:25 17:10 17:40 18:10 Temp 98.3 98.3 Pulse 98 98 90 78 Resp 18 18 18 22 B/P (MAP) 164/78 (106) 165/84 (111) 131/83 (99) 152/80 (104) Pulse Ox 99 98 98 97 O2 Delivery Room Air Room Air Room Air Room Air 06/16/18 06/16/18 06/16/18 06/16/18 18:40 19:10 19:40 21:00 Pulse 74 86 80 Resp 18 18 18 B/P (MAP) 154/80 (104) 185/94 (124) 159/88 (111) Pulse Ox 98 97 95 O2 Delivery Room Air Room Air Room Air Room Air 06/16/18 06/16/18 06/16/18 06/17/18 21:00 21:00 22:59 00:13 Temp 98.9 98.8 98.9 98.8 Pulse 85 78 Resp 18 18 B/P (MAP) 152/89 (110) 143/81 (101) Pulse Ox 97 96 O2 Delivery Room Air Room Air Room Air Room Air 06/17/18 06/17/18 06/17/18 06/17/18 01:13 02:52 07:00 07:59 Temp 98.7 97.7 98.7 97.7 Pulse 74 69 Resp 16 16 B/P (MAP) 130/65 (86) 141/76 (97) Pulse Ox 96 96 98 O2 Delivery Room Air Room Air Room Air Room Air 06/17/18 06/17/18 06/17/18 08:00 08:39 08:40 Pulse 69 B/P (MAP) 141/76 O2 Delivery Room Air Room Air Intake and Output 06/16/18 06/16/18 06/17/18 15:00 23:00 07:00 Intake Total 1800 ml Balance 1800 ml JAZMIN OSULLIVAN MD Jun 17, 2018 09:49
[2018-06-17] MEDS: POTASSIUM CHLORIDE 20 MEQ TABLET.ER. PO SCH (10:25)
[2018-06-17] MEDS: PIPERACILLIN/TAZOBACTAM 3.375 GM in IV NORMAL SALINE 50ML 50 ML IV SCH ×4 (10:26→19:57)
[2018-06-17 11:00] VITALS: BP 129/76
[2018-06-17] MEDS: VANCOMYCIN 2 GM in IV NORMAL SALINE 500ML BAG 500 ML IV SCH ×2 (11:19→21:18)
[2018-06-17 15:00] VITALS: BP 157/85
--- NOTE | 2018-06-17 15:08 | PDOC2 ---
CONSULT Date of Consult Date of Consult DATE: 06/17/18 TIME: 15:07 Reason for Consult Reason for Consult: Right ankle wound Identification/Chief Complaint Chief Complaint Right ankle wound drainage Source Source: Chart review, Patient History of Present Illness Reason for Visit: Right ankle wound. Mr. Egan is a 72-year-old man who had an ankle fracture on 05/03/18. Surgery was performed on 05/04/18, with plate and screw fixation of the lateral malleolus, and screw fixation of the syndesmosis. I saw him at the 2 week postoperative visit in the office and I believe he was doing well at that time. He was switched into a Cam Walker boot and he said the walker boot has been rubbing on his incision and causing problems. He now has some drainage and is admitted for probable infection. Past Medical History Cardiovascular: CAD, HTN Past Surgical History Past Surgical History: Other (ORIF/ rt ankle sx May 04, 2018) Family History Family History: Diabetes Social History No ALCOHOL: none Drugs: None Lives: with Family Current Medications Current Medications Current Medications Sodium Chloride 1,000 ml @ 2,460 mls/hr Q25M IV Last administered on at 18:38; Start 06/16/18 at 16:56; Stop 06/16/18 at 17:56; Status DC Piperacillin Sod/ Tazobactam Sod 4.5 gm/Sodium Chloride 100 ml @ 200 mls/hr 1X ONCE IV Last administered on 06/16/18at 17:39; Start 06/16/18 at 17:00; Stop 06/16/18 at 17:29; Status DC Vancomycin HCl (Vanco Per Pharmacy) 1 each 1X ONCE MC ; Start 06/16/18 at 17:00 ; Stop 06/16/18 at 17:01; Status UNV Morphine Sulfate (Morphine Sulfate) 2 mg PRN Q15MIN PRN IV/SQ PAIN GREATER THAN 3/10 Last administered on 06/16/18at 19:48; Start 06/16/18 at 17:00; Stop at 08:46; Status DC Vancomycin HCl 2 gm/Sodium Chloride 500 ml @ 250 mls/hr 1X ONCE IV Last administered on 06/16/18at 18:32; Start 06/16/18 at 17:15; Stop 06/16/18 at 19:14 ; Status DC Morphine Sulfate (Morphine Sulfate) 2 mg PRN Q2HR PRN IV PAIN; Start 06/16/18 at 19:45 Ondansetron HCl (Zofran) 4 mg PRN Q6HRS PRN IV NAUSEA/VOMITING; Start 06/16/18 at 19:45 Oxycodone/ Acetaminophen (Percocet 5/325) 1 tab PRN Q4HRS PRN PO PAIN 2ND CHOICE Last administered on 06/17/18at 14:38; Start 06/16/18 at 19:45 Labetalol HCl (Normodyne Iv Push) 10 mg PRN Q2HR PRN IVP HYPERTENSION, SEE COMMENTS; Start 06/16/18 at 19:45 Diphenhydramine HCl (Benadryl) 25 mg PRN QHS PRN PO INSOMNIA; Start 06/16/18 at 19:45 Albuterol Sulfate (Ventolin Neb Soln) 2.5 mg PRN Q6HRS PRN INH SHORTNESS OF BREATH Last administered on 06/17/18at 08:03; Start 06/16/18 at 19:45 Ergocalciferol (Vitamin D2) 50,000 unit QTU PO ; Start 06/17/18 at 16:00 Ferrous Sulfate (Feosol) 325 mg BID PO Last administered on 06/17/18at 08:39; Start 06/16/18 at 21:00 Acetaminophen/ Hydrocodone Bitart (Lortab 7.5/325) 1 tab PRN Q4HRS PRN PO PAIN MILD/MOD 1ST CHOICE Last administered on 06/17/18at 00:13; Start 06/16/18 at 19: 45 Multivitamins (Thera M Plus) 1 tab DAILY PO Last administered on 06/17/18at 08: 39; Start 06/17/18 at 09:00 Pantoprazole Sodium (Protonix) 40 mg DAILY07 PO ; Start 06/17/18 at 07:00 Potassium Chloride (Klor-Con) 20 meq DAILYWBKFT PO ; Start 06/17/18 at 08:00; Stop 06/17/18 at 08:34; Status DC Non-Formulary Medication (Losartan/ Hydrochlorothiazide (Losartan-Hctz 100-25 Mg Tab)) 1 tab DAILY PO ; Start 06/17/18 at 09:00; Status UNV Polyethylene Glycol (miraLAX PACKET) 17 gm DAILY PO ; Start 06/17/18 at 09:00 Losartan Potassium (Cozaar) 100 mg DAILY PO Last administered on 06/17/18at 08: 40; Start 06/17/18 at 09:00 Hydrochlorothiazide (Hydrodiuril) 25 mg DAILY PO Last administered on at 08:39; Start 06/17/18 at 09:00 Sodium Chloride 1,000 ml @ 100 mls/hr 1X ONCE IV Last administered on at 08:40; Start 06/16/18 at 20:00; Stop 06/17/18 at 05:59; Status DC Ondansetron HCl (Zofran) 4 mg PRN Q8HRS PRN IV NAUSEA/VOMITING; Start 06/16/18 at 19:45; Stop 06/17/18 at 08:47; Status DC Morphine Sulfate (Morphine Sulfate) 4 mg PRN Q2HR PRN IV PAIN; Start 06/16/18 at 19:45; Stop 06/17/18 at 08:47; Status DC Acetaminophen (Tylenol) 650 mg PRN Q4HRS PRN PO FEVER; Start 06/16/18 at 19:45 ; Stop 06/17/18 at 19:44 Sodium Chloride 1,000 ml @ 125 mls/hr 1X ONCE IV ; Start 06/16/18 at 19:45; Stop 06/17/18 at 03:44; Status DC Potassium Chloride (Klor-Con) 40 meq DAILYWBKFT PO Last administered on at 10:25; Start 06/17/18 at 09:00 Vancomycin HCl (Vanco Per Pharmacy) 1 each PRN DAILY PRN MC SEE COMMENTS Last administered on 06/17/18at 09:09; Start 06/17/18 at 08:45 Piperacillin Sod/ Tazobactam Sod (Zosyn Per Pharmacy) 1 each PRN DAILY PRN MC SEE COMMENTS; Start 06/17/18 at 08:45 Piperacillin Sod/ Tazobactam Sod 3.375 gm/Sodium Chloride 50 ml @ 100 mls/hr Q6HRS IV Last administered on 06/17/18at 10:26; Start 06/17/18 at 09:00 Vancomycin HCl 2 gm/Sodium Chloride 500 ml @ 250 mls/hr Q12H IV Last administered on 06/17/18at 11:19; Start 06/17/18 at 10:00 Vancomycin HCl (Vancomycin Trough Level) 1 each 1X ONCE MC ; Start 06/18/18 at 09:30; Stop 06/18/18 at 09:31 Lactobacillus Rhamnosus (Culturelle) 1 cap BID PO ; Start 06/17/18 at 21:00 Active Scripts Active Thera-M Tablet (Multivits,Ca,Minerals/Iron/Fa) 1 Each Tablet 1 Tab PO DAILY 30 Days Vitamin D2 (Ergocalciferol (Vitamin D2)) 50,000 Unit Capsule 50,000 Unit PO TU 7 Days Klor-Con M20 (Potassium Chloride) 20 Meq Tab.er.prt 20 Meq PO DAILYWBKFT 10 Days Hydrocodone-Apap 7.5-325 (Hydrocodone Bit/Acetaminophen) 1 Tab Tablet 1 Tab PO PRN Q4HRS PRN 10 Days Enoxaparin Sodium 40 Mg/0.4 Ml Disp.syrin 40 Mg SQ Q24H 14 Days Reported Losartan-Hctz 100-25 Mg Tab (Losartan/Hydrochlorothiazide) 1 Each Tablet 1 Tab PO DAILY Polyethylene Glycol 3350 2,500 Gm Powder 17 Gm PO DAILY Protonix (Pantoprazole Sodium) 40 Mg Tablet.dr 40 Mg PO DAILY07 Ferrous Sulfate 325 Mg Tablet 325 Mg PO BID Proair Hfa Inhaler (Albuterol Sulfate) 8.5 Gm Hfa.aer.ad 2 Puff INH PRN Q6HRS PRN Aspirin 81 Mg Tab.chew 81 Mg PO DAILY Allergies Allergies: Coded Allergies: shellfish derived (Verified Allergy, Unknown, makes him drowsy, 05/07/17) Physical Exam General: Alert, Cooperative HEENT: Atraumatic Lungs: Normal air movement Heart: Regular rate Abdomen: Soft Extremities: Other (the right ankle lateral malleolus incision has slight drainage, with mild skin slough. There is no exposed hardware. I believe there is an odor. There is slight surrounding erythema but no optimal abscess. No purulent drainage. Distal neurovascular exam is unchanged) Skin: Other (skin breakdown at the incision with superficial skin slough, and slight drainage at the right ankle lateral incision. He also has 2 small areas at the fifth metatarsal region, where it appears the Cam Walker has been causing abrasions and there is now a superficial area of skin necrosis and black eschar. I don't see any deep tract or abscess, simply superficial. I will have him stop using the boot because of the apparent skin problems.) Neuro: Normal speech, Normal tone Psych/Mental Status: Mental status NL, Mood NL Vitals VITALS Vital Signs Date Time Temp Pulse Resp B/P (MAP) Pulse Ox O2 Delivery O2 Flow Rate FiO2 06/17/18 14:38 Room Air 06/17/18 11:00 97.6 70 16 129/76 (93) 98 97.6 Labs Labs Laboratory Tests Test 06/16/18 17:06 06/16/18 20:55 06/17/18 05:20 White Blood Count 6.2 x10^3/uL (4.0-11.0) 4.7 x10^3/uL (4.0-11.0) Red Blood Count 3.39 x10^6/uL (4.30-5.70) 2.67 x10^6/uL (4.30-5.70) Hemoglobin 10.3 g/dL (13.0-17.5) 8.1 g/dL (13.0-17.5) Hematocrit 31.6 % (39.0-53.0) 24.7 % (39.0-53.0) Mean Corpuscular Volume 93 fL (79-100) 93 fL (79-100) Mean Corpuscular Hemoglobin 30 pg (25-35) 31 pg (25-35) Mean Corpuscular Hemoglobin Concent 33 g/dL (31-37) 33 g/dL (31-37) Red Cell Distribution Width 15.7 % (11.5-14.5) 15.8 % (11.5-14.5) Platelet Count 227 x10^3/uL (140-400) 187 x10^3/uL (140-400) Neutrophils (%) (Auto) 73 % (31-73) 65 % (31-73) Lymphocytes (%) (Auto) 16 % (24-48) 21 % (24-48) Monocytes (%) (Auto) 10 % (0-9) 12 % (0-9) Eosinophils (%) (Auto) 1 % (0-3) 2 % (0-3) Basophils (%) (Auto) 1 % (0-3) 0 % (0-3) Neutrophils # (Auto) 4.5 x10^3uL (1.8-7.7) 3.0 x10^3uL (1.8-7.7) Lymphocytes # (Auto) 1.0 x10^3/uL (1.0-4.8) 1.0 x10^3/uL (1.0-4.8) Monocytes # (Auto) 0.6 x10^3/uL (0.0-1.1) 0.6 x10^3/uL (0.0-1.1) Eosinophils # (Auto) 0.0 x10^3/uL (0.0-0.7) 0.1 x10^3/uL (0.0-0.7) Basophils # (Auto) 0.0 x10^3/uL (0.0-0.2) 0.0 x10^3/uL (0.0-0.2) Erythrocyte Sedimentation Rate 19 (0-15) Prothrombin Time 13.8 SEC (11.7-14.0) Prothromb Time International Ratio 1.1 (0.8-1.1) Activated Partial Thromboplast Time 29 SEC (24-38) Sodium Level 134 mmol/L (136-145) 137 mmol/L (136-145) Potassium Level 3.5 mmol/L (3.5-5.1) 3.2 mmol/L (3.5-5.1) Chloride Level 96 mmol/L (98-107) 101 mmol/L (98-107) Carbon Dioxide Level 27 mmol/L (21-32) 28 mmol/L (21-32) Anion Gap 11 (6-14) 8 (6-14) Blood Urea Nitrogen 16 mg/dL (8-26) 13 mg/dL (8-26) Creatinine 0.9 mg/dL (0.7-1.3) 0.9 mg/dL (0.7-1.3) Estimated GFR (Cockcroft-Gault) 83.4 83.4 BUN/Creatinine Ratio 18 (6-20) 14 (6-20) Glucose Level 96 mg/dL (70-99) 109 mg/dL (70-99) Lactic Acid Level 3.9 mmol/L (0.4-2.0) 1.9 mmol/L (0.4-2.0) Calcium Level 8.8 mg/dL (8.5-10.1) 7.9 mg/dL (8.5-10.1) Total Bilirubin 0.4 mg/dL (0.2-1.0) 0.4 mg/dL (0.2-1.0) Aspartate Amino Transf (AST/SGOT) 17 U/L (15-37) 12 U/L (15-37) Alanine Aminotransferase (ALT/SGPT) 19 U/L (16-63) 14 U/L (16-63) Alkaline Phosphatase 72 U/L (46-116) 56 U/L (46-116) Total Protein 6.6 g/dL (6.4-8.2) 5.3 g/dL (6.4-8.2) Albumin 3.1 g/dL (3.4-5.0) 2.6 g/dL (3.4-5.0) Albumin/Globulin Ratio 0.9 (1.0-1.7) 1.0 (1.0-1.7) Procalcitonin < 0.10 ng/mL (0.00-0.10) Laboratory Tests Test 06/16/18 17:06 06/16/18 20:55 06/17/18 05:20 White Blood Count 6.2 x10^3/uL (4.0-11.0) 4.7 x10^3/uL (4.0-11.0) Red Blood Count 3.39 x10^6/uL (4.30-5.70) 2.67 x10^6/uL (4.30-5.70) Hemoglobin 10.3 g/dL (13.0-17.5) 8.1 g/dL (13.0-17.5) Hematocrit 31.6 % (39.0-53.0) 24.7 % (39.0-53.0) Mean Corpuscular Volume 93 fL (79-100) 93 fL (79-100) Mean Corpuscular Hemoglobin 30 pg (25-35) 31 pg (25-35) Mean Corpuscular Hemoglobin Concent 33 g/dL (31-37) 33 g/dL (31-37) Red Cell Distribution Width 15.7 % (11.5-14.5) 15.8 % (11.5-14.5) Platelet Count 227 x10^3/uL (140-400) 187 x10^3/uL (140-400) Neutrophils (%) (Auto) 73 % (31-73) 65 % (31-73) Lymphocytes (%) (Auto) 16 % (24-48) 21 % (24-48) Monocytes (%) (Auto) 10 % (0-9) 12 % (0-9) Eosinophils (%) (Auto) 1 % (0-3) 2 % (0-3) Basophils (%) (Auto) 1 % (0-3) 0 % (0-3) Neutrophils # (Auto) 4.5 x10^3uL (1.8-7.7) 3.0 x10^3uL (1.8-7.7) Lymphocytes # (Auto) 1.0 x10^3/uL (1.0-4.8) 1.0 x10^3/uL (1.0-4.8) Monocytes # (Auto) 0.6 x10^3/uL (0.0-1.1) 0.6 x10^3/uL (0.0-1.1) Eosinophils # (Auto) 0.0 x10^3/uL (0.0-0.7) 0.1 x10^3/uL (0.0-0.7) Basophils # (Auto) 0.0 x10^3/uL (0.0-0.2) 0.0 x10^3/uL (0.0-0.2) Erythrocyte Sedimentation Rate 19 (0-15) Prothrombin Time 13.8 SEC (11.7-14.0) Prothromb Time International Ratio 1.1 (0.8-1.1) Activated Partial Thromboplast Time 29 SEC (24-38) Sodium Level 134 mmol/L (136-145) 137 mmol/L (136-145) Potassium Level 3.5 mmol/L (3.5-5.1) 3.2 mmol/L (3.5-5.1) Chloride Level 96 mmol/L (98-107) 101 mmol/L (98-107) Carbon Dioxide Level 27 mmol/L (21-32) 28 mmol/L (21-32) Anion Gap 11 (6-14) 8 (6-14) Blood Urea Nitrogen 16 mg/dL (8-26) 13 mg/dL (8-26) Creatinine 0.9 mg/dL (0.7-1.3) 0.9 mg/dL (0.7-1.3) Estimated GFR (Cockcroft-Gault) 83.4 83.4 BUN/Creatinine Ratio 18 (6-20) 14 (6-20) Glucose Level 96 mg/dL (70-99) 109 mg/dL (70-99) Lactic Acid Level 3.9 mmol/L (0.4-2.0) 1.9 mmol/L (0.4-2.0) Calcium Level 8.8 mg/dL (8.5-10.1) 7.9 mg/dL (8.5-10.1) Total Bilirubin 0.4 mg/dL (0.2-1.0) 0.4 mg/dL (0.2-1.0) Aspartate Amino Transf (AST/SGOT) 17 U/L (15-37) 12 U/L (15-37) Alanine Aminotransferase (ALT/SGPT) 19 U/L (16-63) 14 U/L (16-63) Alkaline Phosphatase 72 U/L (46-116) 56 U/L (46-116) Total Protein 6.6 g/dL (6.4-8.2) 5.3 g/dL (6.4-8.2) Albumin 3.1 g/dL (3.4-5.0) 2.6 g/dL (3.4-5.0) Albumin/Globulin Ratio 0.9 (1.0-1.7) 1.0 (1.0-1.7) Procalcitonin < 0.10 ng/mL (0.00-0.10) Images Images Ankle x-rays show stable position of the fracture, no loosening of the hardware and no definite osteomyelitis Assessment/Plan Assessment/Plan Right ankle status post ORIF. Probable infection at this time skin slough and drainage. I recommend IV antibiotics. Cultures were taken in the emergency room. I consulted Dr. Juares infectious disease, and consult Willie wound care nurse for superficial wound care and wound debridement. I don't see any drainable abscess or need for surgical debridement at this present time but superficial wound debridement with wound care is appropriate. I suspect he will need intravenous antibiotics for 2+ weeks, and then oral antibiotics until the hardware can be removed likely 2-3 months from now. He may weight-bear as tolerated. I do not want him to use the Cam walker anymore as it is apparently causing skin problems both with a lateral incision and at the fifth metatarsal head region. The patient stated understanding. RYAN KHAN MD Jun 17, 2018 15:08
--- NOTE | 2018-06-17 15:16 | PDOC ---
Infectious Disease Note Vital Sign Vital Signs Vital Signs Date Time Temp Pulse Resp B/P (MAP) Pulse Ox O2 Delivery O2 Flow Rate FiO2 06/17/18 14:38 Room Air 06/17/18 11:00 97.6 70 16 129/76 (93) 98 97.6 Labs Lab Laboratory Tests Test 06/16/18 17:06 06/16/18 20:55 06/17/18 05:20 White Blood Count 6.2 x10^3/uL (4.0-11.0) 4.7 x10^3/uL (4.0-11.0) Red Blood Count 3.39 x10^6/uL (4.30-5.70) 2.67 x10^6/uL (4.30-5.70) Hemoglobin 10.3 g/dL (13.0-17.5) 8.1 g/dL (13.0-17.5) Hematocrit 31.6 % (39.0-53.0) 24.7 % (39.0-53.0) Mean Corpuscular Volume 93 fL (79-100) 93 fL (79-100) Mean Corpuscular Hemoglobin 30 pg (25-35) 31 pg (25-35) Mean Corpuscular Hemoglobin Concent 33 g/dL (31-37) 33 g/dL (31-37) Red Cell Distribution Width 15.7 % (11.5-14.5) 15.8 % (11.5-14.5) Platelet Count 227 x10^3/uL (140-400) 187 x10^3/uL (140-400) Neutrophils (%) (Auto) 73 % (31-73) 65 % (31-73) Lymphocytes (%) (Auto) 16 % (24-48) 21 % (24-48) Monocytes (%) (Auto) 10 % (0-9) 12 % (0-9) Eosinophils (%) (Auto) 1 % (0-3) 2 % (0-3) Basophils (%) (Auto) 1 % (0-3) 0 % (0-3) Neutrophils # (Auto) 4.5 x10^3uL (1.8-7.7) 3.0 x10^3uL (1.8-7.7) Lymphocytes # (Auto) 1.0 x10^3/uL (1.0-4.8) 1.0 x10^3/uL (1.0-4.8) Monocytes # (Auto) 0.6 x10^3/uL (0.0-1.1) 0.6 x10^3/uL (0.0-1.1) Eosinophils # (Auto) 0.0 x10^3/uL (0.0-0.7) 0.1 x10^3/uL (0.0-0.7) Basophils # (Auto) 0.0 x10^3/uL (0.0-0.2) 0.0 x10^3/uL (0.0-0.2) Erythrocyte Sedimentation Rate 19 (0-15) Prothrombin Time 13.8 SEC (11.7-14.0) Prothromb Time International Ratio 1.1 (0.8-1.1) Activated Partial Thromboplast Time 29 SEC (24-38) Sodium Level 134 mmol/L (136-145) 137 mmol/L (136-145) Potassium Level 3.5 mmol/L (3.5-5.1) 3.2 mmol/L (3.5-5.1) Chloride Level 96 mmol/L (98-107) 101 mmol/L (98-107) Carbon Dioxide Level 27 mmol/L (21-32) 28 mmol/L (21-32) Anion Gap 11 (6-14) 8 (6-14) Blood Urea Nitrogen 16 mg/dL (8-26) 13 mg/dL (8-26) Creatinine 0.9 mg/dL (0.7-1.3) 0.9 mg/dL (0.7-1.3) Estimated GFR (Cockcroft-Gault) 83.4 83.4 BUN/Creatinine Ratio 18 (6-20) 14 (6-20) Glucose Level 96 mg/dL (70-99) 109 mg/dL (70-99) Lactic Acid Level 3.9 mmol/L (0.4-2.0) 1.9 mmol/L (0.4-2.0) Calcium Level 8.8 mg/dL (8.5-10.1) 7.9 mg/dL (8.5-10.1) Total Bilirubin 0.4 mg/dL (0.2-1.0) 0.4 mg/dL (0.2-1.0) Aspartate Amino Transf (AST/SGOT) 17 U/L (15-37) 12 U/L (15-37) Alanine Aminotransferase (ALT/SGPT) 19 U/L (16-63) 14 U/L (16-63) Alkaline Phosphatase 72 U/L (46-116) 56 U/L (46-116) Total Protein 6.6 g/dL (6.4-8.2) 5.3 g/dL (6.4-8.2) Albumin 3.1 g/dL (3.4-5.0) 2.6 g/dL (3.4-5.0) Albumin/Globulin Ratio 0.9 (1.0-1.7) 1.0 (1.0-1.7) Procalcitonin < 0.10 ng/mL (0.00-0.10) Objective Assessment Rt ankle post surgery infection Rt ankle fracture s/p ORIF HTN CAD Plan Plan of Care vanc and zosyn check cultures supportive care picc d/w pt , and MARITO Jackson MD Jun 17, 2018 15:16
[2018-06-17] MEDS ORDERED: ERGOCALCIFEROL (VITAMIN D2) 50,000 UNIT CAPSULE. PO SCH (16:00)
[2018-06-17 19:00] VITALS: BP 154/81
[2018-06-17] MEDS: LACTOBACILLUS RHAMNOSUS GG 1 CAPSULE. PO SCH (19:57)
[2018-06-17] MEDS: diphenhydrAMINE HCL 25 MG CAPSULE PO PRN (19:57)
[2018-06-17 22:40] VITALS: BP 151/79
--- NOTE | 2018-06-18 02:03 | CONS ---
DATE OF CONSULTATION: 06/17/2018 REQUESTING PHYSICIAN: Dr. Dalal. REASON FOR CONSULTATION: Ankle infection. HISTORY OF PRESENT ILLNESS: This is a 72-year-old gentleman who had ankle fracture status post ORIF done on 05/04/2018. The patient subsequently was discharged and he had boots to wear and he says the support boots started rubbing and he started having open area with drainage now. The patient denied any fever. Denied any nausea, vomiting, diarrhea. Denied any chest pain or shortness of breath. The patient has been started on vancomycin and Zosyn and consult has been requested. PAST MEDICAL HISTORY: Positive for coronary artery disease, hypertension and ankle fracture status post ORIF on 05/04/2018. SOCIAL HISTORY: Negative for smoking, alcohol, or illicit drug use. ALLERGIES: LISTED ALLERGIC TO SHELLFISH. CURRENT MEDICATIONS: Reviewed. REVIEW OF SYSTEMS: As per HPI. All other systems reviewed are negative. PHYSICAL EXAMINATION: GENERAL: Alert, oriented gentleman, not in any distress. VITAL SIGNS: Stable, afebrile. HEENT: NAD. NECK: Supple, no JVP, no lymphadenopathy. LUNGS: Clear. HEART: S1, S2 regular. ABDOMEN: Benign. EXTREMITIES: No edema or cyanosis. SKIN: Unremarkable except on the right lateral ankle where the incision was. There is separation of the incision with some skin loss with yellow fibrinous tissue and slightly bloody drainage. No hardware is visible right now and rest of the skin is unremarkable as well as this ankle has no obvious deformity. LABORATORY DATA: White count is 4.7, hemoglobin 8.1, platelets are normal. Sed rate is 19, BUN and creatinine is normal. Ankle x-ray is unremarkable for any acute changes. IMPRESSION: 1. Postsurgical infection at the right ankle. 2. Ankle fracture status post open reduction and internal fixation on 05/04/2018. 3. Hypertension. 4. Coronary artery disease. RECOMMENDATIONS: Cultures have been taken. We will follow the culture and narrow it down from vancomycin and Zosyn for the time being. Supportive care. The patient is going to need at least 2 weeks or more of IV antibiotics and once it settles down or improves, then we may consider oral antibiotics until the hardware is removed at 2 months or so. Discussed with Dr. Dalal and the patient's . Thank you very much, Dr. Dalal for giving me the opportunity to participate in this patient's care. We will also get the [facility] line. MARITO MCKEON MD DR: ROSS/travis JOB#: [id number] / [id number]
[2018-06-18 03:00] VITALS: BP 132/67
[2018-06-18] MEDS: PIPERACILLIN/TAZOBACTAM 3.375 GM in IV NORMAL SALINE 50ML 50 ML IV SCH ×3 (05:07→18:02)
[2018-06-18] MEDS: oxyCODONE/APAP 5/325 1 TAB TABLET PO PRN ×4 (05:07→22:21)
[2018-06-18] MEDS: PANTOPRAZOLE 40 MG TABLET.DR. PO SCH (05:08)
[2018-06-18 05:35] LABS: CREATININE 0.9 mg/dL (0.7-1.3); GFR 83.4
[2018-06-18 07:00] VITALS: BP 157/77
--- NOTE | 2018-06-18 08:18 | PDOC ---
Infectious Disease Note Subjective Subjective pt is feeling good ROS ROS no n/v/d/sob/fever Vital Sign Vital Signs Vital Signs Date Time Temp Pulse Resp B/P (MAP) Pulse Ox O2 Delivery O2 Flow Rate FiO2 06/18/18 06:16 98 Room Air 06/18/18 03:00 97.9 67 18 132/67 (88) 97.9 Physical Exam PHYSICAL EXAM GENERAL: Alert, oriented gentleman, not in any distress. VITAL SIGNS: Stable, afebrile. HEENT: NAD. NECK: Supple, no JVP, no lymphadenopathy. LUNGS: Clear. HEART: S1, S2 regular. ABDOMEN: Benign. EXTREMITIES: No edema or cyanosis. SKIN: Unremarkable except on the right lateral ankle where the incision was. There is separation of the incision with some skin loss with yellow fibrinous tissue and slightly bloody drainage. No hardware is visible right now and rest of the skin is unremarkable as well as this ankle has no obvious deformity. Labs Lab Laboratory Tests Test 06/18/18 03:10 Creatinine 0.9 mg/dL (0.7-1.3) Estimated GFR (Cockcroft-Gault) 83.4 Micro ANAEROBIC-AEROBIC CULTURE PENDING ANAEROBIC RES 1 PENDING AEROBIC CULT PENDING AEROBIC RES 1 PENDING GRAM STAIN Final Final report GRAM STAIN RES 1 Final Comment No white blood cells seen. GRAM STAIN RES 2 Final Comment Many gram variable rods GRAM STAIN RES 3 Final Comment Many gram positive cocci. GRAM STAIN RES 4 Final Comment Many gram negative diplococci. Performed at: - [facility], [place], [place] [id number] [employer] Tube Bender: STORMY Lyons MD, Phone: [phone] Objective Assessment Rt ankle post surgery infection Rt ankle fracture s/p ORIF HTN CAD Plan Plan of Care vanc and zosyn check cultures supportive care picc d/w pt , and MARITO Jackson MD Jun 18, 2018 08:18
[2018-06-18] MEDS: POLYETHYLENE GLYCOL 3350 17 GM PACKET. PO SCH (09:00)
[2018-06-18] MEDS: FERROUS SULFATE 325 MG TABLET. PO SCH ×2 (09:12→21:02)
[2018-06-18] MEDS: POTASSIUM CHLORIDE 20 MEQ TABLET.ER. PO SCH (09:12)
[2018-06-18] MEDS: hydroCHLOROthiazide 25 MG TABLET PO SCH (09:12)
[2018-06-18] MEDS: MULTIVITAMIN with MINERAL TABLET. PO SCH (09:12)
[2018-06-18] MEDS: LOSARTAN POTASSIUM 50 MG TABLET. PO SCH (09:13)
[2018-06-18] MEDS: LACTOBACILLUS RHAMNOSUS GG 1 CAPSULE. PO SCH ×2 (09:13→21:02)
[2018-06-18] MEDS: VANCOMYCIN 2 GM in IV NORMAL SALINE 500ML BAG 500 ML IV SCH (10:00)
[2018-06-18 10:11] LABS: VANC TR 21.4 mcg/mL (10.0-20.0)
[2018-06-18] MEDS ORDERED: LIDOCAINE WITH 8.4% SOD BICARB 3 ML DISP.SYRIN. ONE (10:13)
[2018-06-18] MEDS: VANCOMYCIN PER PHARMACY MC PRN (10:29)
[2018-06-18] MEDS ORDERED: LIDOCAINE WITH 8.4% SOD BICARB 3 ML DISP.SYRIN. INJ ONE (10:30)
--- NOTE | 2018-06-18 10:37 | NUR ---
SW following, discussed with RN. Pt has services with [facility]. Pt getting a PICC today, will likely need 6 weeks of IV abx. SAMANTHA will continue to follow.
--- NOTE | 2018-06-18 10:41 | NUR ---
Pharmacy Vancomycin Dosing Note S: Consulted to monitor and dose vancomycin started 06/16/18. O: DUKE HUNTER is a 72 year old M with ankle wound infection . Other Antibiotics: ZOSYN 3.375G IV Q6HRS LABS: Last BUN: 13 Last Creatinine: 0.9 Creatinine Clearance: 98 mL/min Last WBC: 4.7 Last Platelets: Tmax (past 24 hours): 98.4 Microbiology: BLOOD: NGTD WOUND CX: MANY GPC; MANY GRAM VARIABLE RODS I/O: 1800/output not documented; 3 voids Drug Levels: Last Trough level: 21.4 on 06/18/18 at 0915 Last dose given 06/16/18 at 1700 Vancomycin Dosing: Dosing Weight: Actual Target Trough: 10-20 A: Based on: Trough P: 1. HOLD Vancomycin 2000 mg IV q12h 2. Follow up Random level on 06/18/18 at 2100 to assess further dosing 3. Pharmacy will continue to monitor, follow and adjust therapy as needed. Anjelica [place] Pro, 06/18/18 [id number]
[2018-06-18 11:00] VITALS: BP 147/67
[2018-06-18] MEDS: CALCIUM CARBONATE 500 MG TAB.CHEW PO PRN (11:55)
[2018-06-18 15:00] VITALS: BP 164/38
--- NOTE | 2018-06-18 16:15 | RAD ---
Exam: Fluoroscopic and ultrasound guided right percutaneous inserted central venous catheter placement 06/18/2018 4:11 PM .Indication: long-term abx Technique: Informed oral and written consent were obtained. The right upper extremity was prepped and draped using sterile barrier technique. All elements of maximal sterile barrier technique including the use of a cap, mask, sterile gown, sterile gloves, large sterile sheet, appropriate hand hygiene, and 2% chlorhexidine for cutaneous antisepsis (or acceptable alternative antiseptic per current guidelines) were followed for this procedure.. Real-time ultrasound demonstrated a patent right basilic vein. The right upper extremity was prepped and draped in usual sterile fashion. 1% lidocaine used for local anesthesia. Using real-time ultrasound guidance the access needle percutaneously punctured the selected vein. Reference ultrasound images were saved to the medical record. A guidewire was advanced through the needle to the cavoatrial junction, and a peel-away sheath placed. The catheter was cut to length and inserted through the peel-away sheath such that its tip is at the cavoatrial junction. The wire and sheath were removed, and the catheter secured in place, and a sterile dressing was applied. Catheter was found to flush and aspirate normally. No immediate complications are identified. FLUORO TIME: 0.2 minutes DOSE AREA PRODUCT: 1 Gycm2 Impression: Ultrasound and fluoroscopically guided placement of a right upper extremity PICC line.
[2018-06-18 19:00] VITALS: BP 122/77
--- NOTE | 2018-06-18 20:01 | PDOC ---
PROGRESS NOTES Chief Complaint Chief Complaint Right ankle postop infection Right ankle wound History of right ankle fracture s/p ORIF Accel hypertension POA resolved Mild PCM-albumin 3.1 Mild hyponatremia-sodium 134 History of CAD Plan: continue antibiotics as per ID follow recommendation sfrom orthopedic packaging sales consultant pain management reassess in the am further recommendations based on clinical course. PICC line in place History of Present Illness History of Present Illness no acute events reported overnight, patient with improved pain. No fever or chills, no acute events reported overnight. Vitals Vitals Vital Signs Date Time Temp Pulse Resp B/P (MAP) Pulse Ox O2 Delivery O2 Flow Rate FiO2 06/18/18 18:02 Room Air 06/18/18 15:00 98.2 67 18 164/38 (80) 98 98.2 Physical Exam Physical Exam GENERAL: Alert, oriented gentleman, not in any distress. VITAL SIGNS: Stable, afebrile. HEENT: NAD. NECK: Supple, no JVP, no lymphadenopathy. LUNGS: Clear. HEART: S1, S2 regular. ABDOMEN: Benign. EXTREMITIES: No edema or cyanosis. SKIN: Unremarkable except on the right lateral ankle where the incision was. There is separation of the incision with some skin loss with yellow fibrinous tissue and slightly bloody drainage. No hardware is visible right now and rest of the skin is unremarkable as well as this ankle has no obvious deformity. General: Alert, Cooperative Heart: Regular rate Lungs: Clear Abdomen: Soft Extremities: Other (the right ankle lateral malleolus incision has slight drainage, with mild skin slough. There is no exposed hardware. I believe there is an odor. There is slight surrounding erythema but no optimal abscess. No purulent drainage. Distal neurovascular exam is unchanged) Skin: Other (skin breakdown at the incision with superficial skin slough, and slight drainage at the right ankle lateral incision. He also has 2 small areas at the fifth metatarsal region, where it appears the Cam Walker has been causing abrasions and there is now a superficial area of skin necrosis and black eschar. I don't see any deep tract or abscess, simply superficial. I will have him stop using the boot because of the apparent skin problems.) Labs LABS Laboratory Tests Test 06/18/18 03:10 06/18/18 09:15 Creatinine 0.9 mg/dL (0.7-1.3) Estimated GFR (Cockcroft-Gault) 83.4 Vancomycin Level Trough 21.4 mcg/mL (10.0-20.0) Vancomycin Last Dose Date 06/17/18 Vancomycin Last Dose Time 2200 Comment Review of Relevant I have reviewed the following items carl (where applicable) has been applied. Labs Laboratory Tests Test 06/16/18 20:55 06/17/18 05:20 06/18/18 03:10 06/18/18 09:15 Lactic Acid Level 1.9 mmol/L (0.4-2.0) White Blood Count 4.7 x10^3/uL (4.0-11.0) Red Blood Count 2.67 x10^6/uL (4.30-5.70) Hemoglobin 8.1 g/dL (13.0-17.5) Hematocrit 24.7 % (39.0-53.0) Mean Corpuscular Volume 93 fL (79-100) Mean Corpuscular Hemoglobin 31 pg (25-35) Mean Corpuscular Hemoglobin Concent 33 g/dL (31-37) Red Cell Distribution Width 15.8 % (11.5-14.5) Platelet Count 187 x10^3/uL (140-400) Neutrophils (%) (Auto) 65 % (31-73) Lymphocytes (%) (Auto) 21 % (24-48) Monocytes (%) (Auto) 12 % (0-9) Eosinophils (%) (Auto) 2 % (0-3) Basophils (%) (Auto) 0 % (0-3) Neutrophils # (Auto) 3.0 x10^3uL (1.8-7.7) Lymphocytes # (Auto) 1.0 x10^3/uL (1.0-4.8) Monocytes # (Auto) 0.6 x10^3/uL (0.0-1.1) Eosinophils # (Auto) 0.1 x10^3/uL (0.0-0.7) Basophils # (Auto) 0.0 x10^3/uL (0.0-0.2) Sodium Level 137 mmol/L (136-145) Potassium Level 3.2 mmol/L (3.5-5.1) Chloride Level 101 mmol/L (98-107) Carbon Dioxide Level 28 mmol/L (21-32) Anion Gap 8 (6-14) Blood Urea Nitrogen 13 mg/dL (8-26) Creatinine 0.9 mg/dL (0.7-1.3) 0.9 mg/dL (0.7-1.3) Estimated GFR (Cockcroft-Gault) 83.4 83.4 BUN/Creatinine Ratio 14 (6-20) Glucose Level 109 mg/dL (70-99) Calcium Level 7.9 mg/dL (8.5-10.1) Total Bilirubin 0.4 mg/dL (0.2-1.0) Aspartate Amino Transf (AST/SGOT) 12 U/L (15-37) Alanine Aminotransferase (ALT/SGPT) 14 U/L (16-63) Alkaline Phosphatase 56 U/L (46-116) Total Protein 5.3 g/dL (6.4-8.2) Albumin 2.6 g/dL (3.4-5.0) Albumin/Globulin Ratio 1.0 (1.0-1.7) Vancomycin Level Trough 21.4 mcg/mL (10.0-20.0) Vancomycin Last Dose Date 06/17/18 Vancomycin Last Dose Time 2199 Laboratory Tests Test 06/18/18 03:10 06/18/18 09:15 Creatinine 0.9 mg/dL (0.7-1.3) Estimated GFR (Cockcroft-Gault) 83.4 Vancomycin Level Trough 21.4 mcg/mL (10.0-20.0) Vancomycin Last Dose Date 06/17/18 Vancomycin Last Dose Time 2200 Microbiology 06/16/18 Blood Culture - Preliminary, Resulted NO GROWTH AFTER 2 DAYS 06/16/18 Anaerobic/Aerobic Culture, Resulted Pending 06/16/18 Anaerobic Culture Result 1 (DANNIE), Resulted Pending 06/16/18 Aerobic Culture, Resulted Pending 06/16/18 Aerobic Culture Result 1 (DANNIE), Resulted Pending 06/16/18 Gram Stain - Final, Resulted 06/16/18 Gram Stain Result 1 (DANNIE) - Final, Resulted 06/16/18 Gram Stain Result 2 (DANNIE) - Final, Resulted 06/16/18 Gram Stain Result 3 (DANNIE) - Final, Resulted 06/16/18 Gram Stain Result 4 (DANNIE) - Final, Resulted Medications Current Medications Sodium Chloride 1,000 ml @ 2,460 mls/hr Q25M IV Last administered on at 18:38; Start 06/16/18 at 16:56; Stop 06/16/18 at 17:56; Status DC Piperacillin Sod/ Tazobactam Sod 4.5 gm/Sodium Chloride 100 ml @ 200 mls/hr 1X ONCE IV Last administered on 06/16/18at 17:39; Start 06/16/18 at 17:00; Stop 06/16/18 at 17:29; Status DC Vancomycin HCl (Vanco Per Pharmacy) 1 each 1X ONCE MC ; Start 06/16/18 at 17:00 ; Stop 06/16/18 at 17:01; Status UNV Morphine Sulfate (Morphine Sulfate) 2 mg PRN Q15MIN PRN IV/SQ PAIN GREATER THAN 3/10 Last administered on 06/16/18at 19:48; Start 06/16/18 at 17:00; Stop at 08:46; Status DC Vancomycin HCl 2 gm/Sodium Chloride 500 ml @ 250 mls/hr 1X ONCE IV Last administered on 06/16/18at 18:32; Start 06/16/18 at 17:15; Stop 06/16/18 at 19:14 ; Status DC Morphine Sulfate (Morphine Sulfate) 2 mg PRN Q2HR PRN IV PAIN; Start 06/16/18 at 19:45 Ondansetron HCl (Zofran) 4 mg PRN Q6HRS PRN IV NAUSEA/VOMITING; Start 06/16/18 at 19:45 Oxycodone/ Acetaminophen (Percocet 5/325) 1 tab PRN Q4HRS PRN PO PAIN 2ND CHOICE Last administered on 06/18/18at 18:02; Start 06/16/18 at 19:45 Labetalol HCl (Normodyne Iv Push) 10 mg PRN Q2HR PRN IVP HYPERTENSION, SEE COMMENTS; Start 06/16/18 at 19:45 Diphenhydramine HCl (Benadryl) 25 mg PRN QHS PRN PO INSOMNIA Last administered on 06/17/18at 19:57; Start 06/16/18 at 19:45 Albuterol Sulfate (Ventolin Neb Soln) 2.5 mg PRN Q6HRS PRN INH SHORTNESS OF BREATH Last administered on 06/17/18at 08:03; Start 06/16/18 at 19:45 Ergocalciferol (Vitamin D2) 50,000 unit QTU PO Last administered on 06/17/18 16:46; Start 06/17/18 at 16:00 Ferrous Sulfate (Feosol) 325 mg BID PO Last administered on 06/18/18 09:12; Start 06/16/18 at 21:00 Acetaminophen/ Hydrocodone Bitart (Lortab 7.5/325) 1 tab PRN Q4HRS PRN PO PAIN MILD/MOD 1ST CHOICE Last administered on 06/17/18at 23:47; Start 06/16/18 at 19: 45 Multivitamins (Thera M Plus) 1 tab DAILY PO Last administered on 06/18/18 09: 12; Start 06/17/18 at 09:00 Pantoprazole Sodium (Protonix) 40 mg DAILY07 PO Last administered on 06/18/18 05:08; Start 06/17/18 at 07:00 Potassium Chloride (Klor-Con) 20 meq DAILYWBKFT PO ; Start 06/17/18 at 08:00; Stop 06/17/18 at 08:34; Status DC Non-Formulary Medication (Losartan/ Hydrochlorothiazide (Losartan-Hctz 100-25 Mg Tab)) 1 tab DAILY PO ; Start 06/17/18 at 09:00; Status UNV Polyethylene Glycol (miraLAX PACKET) 17 gm DAILY PO ; Start 06/17/18 at 09:00 Losartan Potassium (Cozaar) 100 mg DAILY PO Last administered on 06/18/18at 09: 13; Start 06/17/18 at 09:00 Hydrochlorothiazide (Hydrodiuril) 25 mg DAILY PO Last administered on at 09:12; Start 06/17/18 at 09:00 Sodium Chloride 1,000 ml @ 100 mls/hr 1X ONCE IV Last administered on at 08:40; Start 06/16/18 at 20:00; Stop 06/17/18 at 05:59; Status DC Ondansetron HCl (Zofran) 4 mg PRN Q8HRS PRN IV NAUSEA/VOMITING; Start 06/16/18 at 19:45; Stop 06/17/18 at 08:47; Status DC Morphine Sulfate (Morphine Sulfate) 4 mg PRN Q2HR PRN IV PAIN; Start 06/16/18 at 19:45; Stop 06/17/18 at 08:47; Status DC Acetaminophen (Tylenol) 650 mg PRN Q4HRS PRN PO FEVER; Start 06/16/18 at 19:45 ; Stop 06/17/18 at 19:44; Status DC Sodium Chloride 1,000 ml @ 125 mls/hr 1X ONCE IV ; Start 06/16/18 at 19:45; Stop 06/17/18 at 03:44; Status DC Potassium Chloride (Klor-Con) 40 meq DAILYWBKFT PO Last administered on at 09:12; Start 06/17/18 at 09:00 Vancomycin HCl (Vanco Per Pharmacy) 1 each PRN DAILY PRN MC SEE COMMENTS Last administered on 06/18/18at 10:29; Start 06/17/18 at 08:45 Piperacillin Sod/ Tazobactam Sod (Zosyn Per Pharmacy) 1 each PRN DAILY PRN MC SEE COMMENTS; Start 06/17/18 at 08:45 Piperacillin Sod/ Tazobactam Sod 3.375 gm/Sodium Chloride 50 ml @ 100 mls/hr Q6HRS IV Last administered on 06/18/18at 18:02; Start 06/17/18 at 09:00 Vancomycin HCl 2 gm/Sodium Chloride 500 ml @ 250 mls/hr Q12H IV Last administered on 06/17/18at 21:18; Start 06/17/18 at 10:00; Stop 06/18/18 at 10:28 ; Status DC Vancomycin HCl (Vancomycin Trough Level) 1 each 1X ONCE MC Last administered on 06/18/18at 09:30; Start 06/18/18 at 09:30; Stop 06/18/18 at 09:31; Status DC Lactobacillus Rhamnosus (Culturelle) 1 cap BID PO Last administered on at 09:13; Start 06/17/18 at 21:00 Lidocaine/Sodium Bicarbonate (Buffered Lidocaine 1%) 3 ml STK-MED ONCE .ROUTE ; Start 06/18/18 at 10:13; Stop 06/18/18 at 10:14; Status DC Lidocaine/Sodium Bicarbonate (Buffered Lidocaine 1%) 6 ml 1X ONCE INJ Last administered on 06/18/18at 10:30; Start 06/18/18 at 10:30; Stop 06/18/18 at 10:31 ; Status DC Vancomycin HCl (Vancomycin Random Level) 1 each 1X ONCE MC ; Start 06/18/18 at 21:00; Stop 06/18/18 at 21:01 Calcium Carbonate/ Glycine (Tums) 500 mg PRN AFTMEALHC PRN PO INDIGESTION Last administered on 06/18/18at 11:55; Start 06/18/18 at 11:45 Active Scripts Active Thera-M Tablet (Multivits,Ca,Minerals/Iron/Fa) 1 Each Tablet 1 Tab PO DAILY 30 Days Vitamin D2 (Ergocalciferol (Vitamin D2)) 50,000 Unit Capsule 50,000 Unit PO TU 7 Days Klor-Con M20 (Potassium Chloride) 20 Meq Tab.er.prt 20 Meq PO DAILYWBKFT 10 Days Hydrocodone-Apap 7.5-325 (Hydrocodone Bit/Acetaminophen) 1 Tab Tablet 1 Tab PO PRN Q4HRS PRN 10 Days Enoxaparin Sodium 40 Mg/0.4 Ml Disp.syrin 40 Mg SQ Q24H 14 Days Reported Losartan-Hctz 100-25 Mg Tab (Losartan/Hydrochlorothiazide) 1 Each Tablet 1 Tab PO DAILY Polyethylene Glycol 3350 2,500 Gm Powder 17 Gm PO DAILY Protonix (Pantoprazole Sodium) 40 Mg Tablet.dr 40 Mg PO DAILY07 Ferrous Sulfate 325 Mg Tablet 325 Mg PO BID Proair Hfa Inhaler (Albuterol Sulfate) 8.5 Gm Hfa.aer.ad 2 Puff INH PRN Q6HRS PRN Aspirin 81 Mg Tab.chew 81 Mg PO DAILY Vitals/I & O Vital Sign - Last 24 Hours 06/17/18 06/17/18 06/17/18 06/18/18 20:07 22:40 23:47 01:32 Temp 97.7 97.7 Pulse 76 Resp 18 B/P (MAP) 151/79 (103) Pulse Ox 98 98 98 O2 Delivery Room Air Room Air Room Air Room Air 06/18/18 06/18/18 06/18/18 06/18/18 03:00 05:07 06:16 07:00 Temp 97.9 98.4 97.9 98.4 Pulse 67 66 Resp 18 18 B/P (MAP) 132/67 (88) 157/77 (103) Pulse Ox 98 98 98 96 O2 Delivery Room Air Room Air Room Air 06/18/18 06/18/18 06/18/18 06/18/18 08:00 09:13 11:00 11:54 Temp 97.7 97.7 Pulse 66 64 Resp 18 B/P (MAP) 157/77 147/67 (93) Pulse Ox 96 O2 Delivery Room Air Room Air Room Air 06/18/18 06/18/18 06/18/18 12:55 15:00 18:02 Temp 98.2 98.2 Pulse 67 Resp 18 B/P (MAP) 164/38 (80) Pulse Ox 98 O2 Delivery Room Air Room Air Room Air Intake and Output 06/17/18 06/17/18 06/18/18 14:59 22:59 06:59 Intake Total 240 ml 720 ml Output Total 875 ml 400 ml 1150 ml Balance -875 ml -160 ml -430 ml Nutrition Consultation Dietary Evaluation: Recommendations by RD: Increase Calorie Intake, Protein supplementation Comments: mvi q day reynaldo bid Expected Outcomes/Goals: to meet > 75% est nutr needs Interpretation of weight loss: >5% in 1 month Malnutrition Findings: Food and Nutrition Intake (Mod: <75% est energy req 7days Weight Status: Obese YORDY RAYMUNDO MD Jun 18, 2018 20:01
[2018-06-18] MEDS ORDERED: VANCOMYCIN RANDOM LEVEL. MC ONE (21:00)
[2018-06-18] MEDS: diphenhydrAMINE HCL 25 MG CAPSULE PO PRN (21:02)
[2018-06-18 23:00] VITALS: BP 151/87
[2018-06-18] MEDS ORDERED: VANCOMYCIN 2 GM in IV NORMAL SALINE 500ML BAG 500 ML IV SCH (23:00)
[2018-06-19] MEDS: VANCOMYCIN PER PHARMACY MC PRN (00:59)
--- NOTE | 2018-06-19 00:59 | NUR ---
Pharmacy Vancomycin Dosing Note S:Consulted to monitor and dose vancomycin started 06/16/18. O:DUKE HUNTER is a 72 year old M with ankle wound infection . Height: 6 feet, 2 inches Weight: 129.534652 kg [place] Body Weight: 82.20 Adjusted Body Weight: 100.92 Dosing Weight: Actual Other Antibiotics: ZOSYN 3.375G IV Q6HRS LABS: Last BUN: 13 Last Creatinine: 0.9 Creatinine Clearance: 98 mL/min Last WBC: 4.7 Last Procalcitonin: < 0.1 Tmax (past 24 hours): 98.4 Microbiology: BLOOD: NGTD WOUND CX: MANY GPC; MANY GRAM VARIABLE RODS I/O: 1800/output not documented; 3 voids Drug Levels: Last Random level: 12.3 on 06/18/18 at 2100 Last dose given 06/16/18 at 1700 Vancomycin Dosing: Loading Dose: 2000 mg x1 Dosing Weight: Actual Target Trough: 10-20 A: Based on: 24 HOUR LEVEL P: 1. Begin Vancomycin 2000 mg IV q24h 2. Follow up Trough level on 06/20/18 at 2230 3. Pharmacy will continue to monitor, follow and adjust therapy as needed. DIANA TRIPATHI RPH, 06/19/189 Signed: 06/19/18 at 58 by DIANA TRIPATHI RPH PHA
[2018-06-19] MEDS: PIPERACILLIN/TAZOBACTAM 3.375 GM in IV NORMAL SALINE 50ML 50 ML IV SCH ×2 (01:33→05:19)
[2018-06-19 03:00] VITALS: BP 131/77
[2018-06-19] MEDS: PANTOPRAZOLE 40 MG TABLET.DR. PO SCH (05:19)
[2018-06-19] MEDS: oxyCODONE/APAP 5/325 1 TAB TABLET PO PRN ×2 (05:20→11:16)
[2018-06-19 05:28] LABS: CREATININE 0.8 mg/dL (0.7-1.3); GFR 95.3
[2018-06-19 07:00] VITALS: BP 157/88
[2018-06-19] MEDS: POTASSIUM CHLORIDE 20 MEQ TABLET.ER. PO SCH (08:11)
[2018-06-19] MEDS: MULTIVITAMIN with MINERAL TABLET. PO SCH (08:11)
[2018-06-19] MEDS: hydroCHLOROthiazide 25 MG TABLET PO SCH (08:11)
[2018-06-19] MEDS: LACTOBACILLUS RHAMNOSUS GG 1 CAPSULE. PO SCH (08:11)
[2018-06-19] MEDS: FERROUS SULFATE 325 MG TABLET. PO SCH (08:11)
[2018-06-19] MEDS: LOSARTAN POTASSIUM 50 MG TABLET. PO SCH (08:12)
[2018-06-19] MEDS: POLYETHYLENE GLYCOL 3350 17 GM PACKET. PO SCH (08:12)
--- NOTE | 2018-06-19 08:55 | PDOC ---
Infectious Disease Note Subjective Subjective pt is feeling good,, wants to go home today ROS ROS no n/v/d/sob/fever Vital Sign Vital Signs Vital Signs Date Time Temp Pulse Resp B/P (MAP) Pulse Ox O2 Delivery O2 Flow Rate FiO2 06/19/18 08:12 61 157/88 06/19/18 07:00 97.7 18 98 Room Air 97.7 Physical Exam PHYSICAL EXAM GENERAL: Alert, oriented gentleman, not in any distress. VITAL SIGNS: Stable, afebrile. HEENT: NAD. NECK: Supple, no JVP, no lymphadenopathy. LUNGS: Clear. HEART: S1, S2 regular. ABDOMEN: Benign. EXTREMITIES: No edema or cyanosis. SKIN: Unremarkable except on the right lateral ankle where the incision was. There is separation of the incision with some skin loss with yellow fibrinous tissue and slightly bloody drainage. No hardware is visible right now and rest of the skin is unremarkable as well as this ankle has no obvious deformity. Labs Lab Laboratory Tests Test 06/18/18 09:15 06/18/18 21:15 06/19/18 05:00 Vancomycin Level Trough 21.4 mcg/mL (10.0-20.0) Vancomycin Last Dose Date 06/17/18 Vancomycin Last Dose Time 2200 Random Vancomycin Level 12.3 mcg/mL Creatinine 0.8 mg/dL (0.7-1.3) Estimated GFR (Cockcroft-Gault) 95.3 Micro ANAEROBIC-AEROBIC CULTURE PENDING ANAEROBIC RES 1 PENDING AEROBIC CULT PENDING AEROBIC RES 1 PENDING GRAM STAIN Final Final report GRAM STAIN RES 1 Final Comment No white blood cells seen. GRAM STAIN RES 2 Final Comment Many gram variable rods GRAM STAIN RES 3 Final Comment Many gram positive cocci. GRAM STAIN RES 4 Final Comment Many gram negative diplococci. Performed at: - [facility] [id number], [place], [place] [id number] [employer] Supervisor: STORMY Lyons MD, Phone: [phone] Objective Assessment Rt ankle post surgery infection Rt ankle fracture s/p ORIF HTN CAD Plan Plan of Care pt insists on wanting to go home today, since it [birth year] Explained to him that we do not have culture results and we can tentatively pick a drug , may have to change depending on final results, he understands that and is ok with it Will change to Invanz, pt to call Saturday my office to get results and then see if we need to change f/u with me in 2 wks wkly cbc, bun/cr, sed rate MARITO MCKEON MD Jun 19, 2018 08:55
[2018-06-19] MEDS ORDERED: POTASSIUM CHLORIDE 20 MEQ TABLET.ER. PO ONE (09:30)
[2018-06-19] MEDS ORDERED: ERTAPENEM 1GM IVPB (GENERIC) 50 ML IV ONE (10:00)
[2018-06-19 10:22] LABS: CREATININE 0.9 mg/dL (0.7-1.3); GFR 83.2; POTASSIUM 3.4 mmol/L (3.5-5.1)
[2018-06-19 10:36] LABS: BASO % 1 % (0-3); EOS # 0.1 x10^3/uL (0.0-0.7); EOS % 3 % (0-3); HEMATOCRIT 23.5 % (39.0-53.0); HEMOGLOBIN 7.7 g/dL (13.0-17.5); LYMPH # 0.9 x10^3/uL (1.0-4.8); LYMPH % 27 % (24-48); MEAN CORPUSCULAR HEMOGLOBIN 31 pg (25-35); MEAN CORPUSCULAR HGB CONC 33 g/dL (31-37); MEAN CORPUSCULAR VOLUME 94 fL (79-100); MONO # 0.5 x10^3/uL (0.0-1.1); MONO % 13 % (0-9); NEUT # 1.9 x10^3uL (1.8-7.7); NEUT % 57 % (31-73); PLATELET COUNT 172 x10^3/uL (140-400); RED CELL DISTRIBUTION WIDTH 15.6 % (11.5-14.5); WHITE BLOOD COUNT 3.4 x10^3/uL (4.0-11.0)
[2018-06-19] MEDS ORDERED: HYDR-2765 PO (10:42)
--- NOTE | 2018-06-19 10:43 | DISCH ---
DISCHARGE WITH HOME HEALTH DISCHARGE INFORMATION: Discharge Date: Jun 19, 2018 Condition on Discharge: Stable CODE STATUS: Code Status: Full HOME HEALTH: Face to Face: I certify this patient is under my care and that I, or a nurse practitioner or physician's hardware sales assistant working with me, had a face to face encounter that meets the physician face to face encounter requirements with this patient on []. 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 For: Community Resources Pt Meets Homebound Status: Unsteady balance w/ amb, POST DISCHARGE ORDERS: Activity Instructions for Disc: Activity as tolerated Weight Bearing Status after Di: Touch down weight bearing DIET AFTER DISCHARGE: Cardiac Wound/Incision Care: Keep wound/cast CDI, Keep wound elevated, Reinforce dressing PRN CHECKS AFTER DISCHARGE: Checks after discharge: Check blood press - daily, Check blood sugar, ac/hs TREATMENT/EQUIPMENT ORDERS: Adaptive Equipment Issued: Brace/splint CERTIFICATION STATEMENT: Certification Statement: Certification Statement: Based on the above finding, I certify that this patient is confined to the home and needs intermittent nursing home care, physical therapy and/or speech therapy, or continues to need occupational therapy.~ This patient is under my care, and I have initiated the establishment of the plan of care.~ This patient will be followed by myself or a community physician who will periodically review the plan of care. Home Meds Active Scripts Hydrocodone Bit/Acetaminophen (HYDROCODONE-APAP 7.5-325 ) 1 Tab Tablet, 1 TAB PO PRN Q4HRS PRN for PAIN MILD/MOD 1ST CHOICE MDD 1 for 10 Days, #20 TAB Prov:JAZMIN OSULLIVAN MD 06/19/18 Multivits,Ca,Minerals/Iron/Fa (THERA-M TABLET) 1 Each Tablet, 1 TAB PO DAILY for SUPPLEMENT for 30 Days, #30 TAB Prov:DUKE DE PAZ MD 05/07/18 Ergocalciferol (Vitamin D2) (VITAMIN D2) 50,000 Unit Capsule, 04314 UNIT PO Tu for ONCE A WEEK SUPPLEMENT-BONES for 7 Days, #7 CAP Prov:DUKE DE PAZ MD 05/07/18 Potassium Chloride (KLOR-CON M20) 20 Meq Tab.er.prt, 20 MEQ PO DAILYWBKFT for SUPPLEMENT for 10 Days, #10 TAB.SR Prov:DUKE DE PAZ MD 05/07/18 Enoxaparin Sodium (ENOXAPARIN SODIUM) 40 Mg/0.4 Ml Disp.syrin, 40 MG SQ Q24H for PREVENT DVT for 14 Days, #14 DIS.SYR Prov:DUKE DE PAZ MD 05/07/18 Reported Medications Losartan/Hydrochlorothiazide (LOSARTAN-HCTZ 100-25 MG TAB) 1 Each Tablet, 1 TAB PO DAILY for htn, #30 TAB 5 Refills 05/03/18 Polyethylene Glycol 3350 (POLYETHYLENE GLYCOL 3350) 2,500 Gm Powder, 17 GM PO DAILY, #255 GM 05/08/17 Pantoprazole Sodium (PROTONIX) 40 Mg Tablet.dr, 40 MG PO DAILY07, TAB 05/08/17 Ferrous Sulfate (FERROUS SULFATE) 325 Mg Tablet, 325 MG PO BID, TAB 05/08/17 Albuterol Sulfate (PROAIR HFA INHALER) 8.5 Gm Hfa.aer.ad, 2 PUFF INH PRN Q6HRS PRN for SHORTNESS OF BREATH, INHALER 0 Refills 05/07/17 Aspirin (ASPIRIN) 81 Mg Tab.chew, 81 MG PO DAILY, TAB.CHEW 05/07/17 JAZMIN OSULLIVAN MD Jun 19, 2018 10:43
--- NOTE | 2018-06-19 10:45 | PDOC3 ---
Discharge Summary Visit Information Date of Admission: Jun 16, 2018 Date of Discharge: Jun 19, 2018 Admitting Diagnosis Comment: Osteomyelitis right ankle Hardware right ankle, recent rt ankle sx Right ankle postop problem Right ankle wound Accel hypertension POA Mild PCM-albumin 3.1 Mild hyponatremia-sodium 134 MIld Hypokalemia Brief Hospital Course Allergies Allergies Coded Allergies Type Severity Reaction Last Updated Verified shellfish derived Allergy Mild makes him drowsy 06/19/18 Yes Vital Signs Vital Signs Date Time Temp Pulse Resp B/P (MAP) Pulse Ox O2 Delivery O2 Flow Rate FiO2 06/19/18 08:12 61 157/88 06/19/18 07:00 97.7 18 98 Room Air 97.7 Lab Results Laboratory Tests Test 06/18/18 03:10 06/18/18 09:15 06/18/18 21:15 06/19/18 05:00 Creatinine 0.9 mg/dL (0.7-1.3) 0.9 mg/dL (0.7-1.3) Estimated GFR (Cockcroft-Gault) 83.4 83.2 Vancomycin Level Trough 21.4 mcg/mL (10.0-20.0) Vancomycin Last Dose Date 06/17/18 Vancomycin Last Dose Time 2200 Random Vancomycin Level 12.3 mcg/mL White Blood Count 3.4 x10^3/uL (4.0-11.0) Red Blood Count 2.50 x10^6/uL (4.30-5.70) Hemoglobin 7.7 g/dL (13.0-17.5) Hematocrit 23.5 % (39.0-53.0) Mean Corpuscular Volume 94 fL (79-100) Mean Corpuscular Hemoglobin 31 pg (25-35) Mean Corpuscular Hemoglobin Concent 33 g/dL (31-37) Red Cell Distribution Width 15.6 % (11.5-14.5) Platelet Count 172 x10^3/uL (140-400) Neutrophils (%) (Auto) 57 % (31-73) Lymphocytes (%) (Auto) 27 % (24-48) Monocytes (%) (Auto) 13 % (0-9) Eosinophils (%) (Auto) 3 % (0-3) Basophils (%) (Auto) 1 % (0-3) Neutrophils # (Auto) 1.9 x10^3uL (1.8-7.7) Lymphocytes # (Auto) 0.9 x10^3/uL (1.0-4.8) Monocytes # (Auto) 0.5 x10^3/uL (0.0-1.1) Eosinophils # (Auto) 0.1 x10^3/uL (0.0-0.7) Basophils # (Auto) 0.0 x10^3/uL (0.0-0.2) Sodium Level 140 mmol/L (136-145) Potassium Level 3.4 mmol/L (3.5-5.1) Chloride Level 104 mmol/L (98-107) Carbon Dioxide Level 26 mmol/L (21-32) Anion Gap 10 (6-14) Blood Urea Nitrogen 5 mg/dL (8-26) Glucose Level 104 mg/dL (70-99) Calcium Level 8.0 mg/dL (8.5-10.1) Laboratory Tests Test 06/18/18 21:15 06/19/18 05:00 Random Vancomycin Level 12.3 mcg/mL White Blood Count 3.4 x10^3/uL (4.0-11.0) Red Blood Count 2.50 x10^6/uL (4.30-5.70) Hemoglobin 7.7 g/dL (13.0-17.5) Hematocrit 23.5 % (39.0-53.0) Mean Corpuscular Volume 94 fL (79-100) Mean Corpuscular Hemoglobin 31 pg (25-35) Mean Corpuscular Hemoglobin Concent 33 g/dL (31-37) Red Cell Distribution Width 15.6 % (11.5-14.5) Platelet Count 172 x10^3/uL (140-400) Neutrophils (%) (Auto) 57 % (31-73) Lymphocytes (%) (Auto) 27 % (24-48) Monocytes (%) (Auto) 13 % (0-9) Eosinophils (%) (Auto) 3 % (0-3) Basophils (%) (Auto) 1 % (0-3) Neutrophils # (Auto) 1.9 x10^3uL (1.8-7.7) Lymphocytes # (Auto) 0.9 x10^3/uL (1.0-4.8) Monocytes # (Auto) 0.5 x10^3/uL (0.0-1.1) Eosinophils # (Auto) 0.1 x10^3/uL (0.0-0.7) Basophils # (Auto) 0.0 x10^3/uL (0.0-0.2) Sodium Level 140 mmol/L (136-145) Potassium Level 3.4 mmol/L (3.5-5.1) Chloride Level 104 mmol/L (98-107) Carbon Dioxide Level 26 mmol/L (21-32) Anion Gap 10 (6-14) Blood Urea Nitrogen 5 mg/dL (8-26) Creatinine 0.9 mg/dL (0.7-1.3) Estimated GFR (Cockcroft-Gault) 83.2 Glucose Level 104 mg/dL (70-99) Calcium Level 8.0 mg/dL (8.5-10.1) Brief Hospital Course Mr. Egan is a 73 old white male who had a recent right ankle surgery for fracture and needed some hardware. Was discharged appropriately with home health. Home health nurse noted draining wound hence admitted for IV antibiotics. Comanage with ID and Ortho. We are planning for 6 weeks IV antibiotics osteomyelitis possible. Give time for IV abx to work and possibly afterwards get the hardware out. Then proceed from there [facility] ID, Ortho Procedures performed none just PICC line IV Invanz on chart DC time less than 30 minutes Discharge Information Condition at Discharge: Improved, Stable Disposition/Orders: D/C to Home w/ HH Scheduled Aspirin (Aspirin) 81 Mg Tab.chew, 81 MG PO DAILY, (Reported) Entered as Reported by: LIZZIE JIMENEZ on 05/07/17 0657 Last Action: HELD on 06/16/181934 by JAZMIN OSULLIVAN Enoxaparin Sodium (Enoxaparin Sodium) 40 Mg/0.4 Ml Disp.syrin, 40 MG SQ Q24H for PREVENT DVT for 14 Days, #14 Prescribed by: DUKE DE PAZ MD on 05/07/18 1251 Last Action: HELD on 06/16/181934 by JAZMIN OSULLIVAN Ergocalciferol (Vitamin D2) (Vitamin D2) 50,000 Unit Capsule, 50,000 UNIT PO Tu for ONCE A WEEK SUPPLEMENT-BONES for 7 Days, #7 Prescribed by: DUKE DE PAZ MD on 05/07/181250 Last Action: Continued on 06/16/181934 by JAZMIN OSULLIVAN Ferrous Sulfate (Ferrous Sulfate) 325 Mg Tablet, 325 MG PO BID, (Reported) Entered as Reported by: CHOLO CRUZ on 05/08/171808 Last Action: Continued on 06/16/181934 by JAZMIN OSULLIVAN Losartan/Hydrochlorothiazide (Losartan-Hctz 100-25 Mg Tab) 1 Each Tablet, 1 TAB PO DAILY for htn, #30 Ref 5 (Reported) Entered as Reported by: ANDREW TORRES on 05/03/18 1526 Last Action: Converted on 06/16/181934 by JAZMIN OSULLIVAN Multivits,Ca,Minerals/Iron/Fa (Thera-M Tablet) 1 Each Tablet, 1 TAB PO DAILY for SUPPLEMENT for 30 Days, #30 Prescribed by: DUKE DE PAZ MD on 05/07/181250 Last Action: Continued on 06/16/181934 by JAZMIN OSULLIVAN Pantoprazole Sodium (Protonix) 40 Mg Tablet.dr, 40 MG PO DAILY07, (Reported) Entered as Reported by: CHOLO CRUZ on 05/08/171808 Last Action: Continued on 06/16/181934 by JAZMIN OSULLIVAN Polyethylene Glycol 3350 (Polyethylene Glycol 3350) 2,500 Gm Powder, 17 GM PO DAILY, #255 (Reported) Entered as Reported by: CHOLO CRUZ on 05/08/171808 Last Action: Converted on 06/16/181934 by JAZMIN OSULLIVAN Potassium Chloride (Klor-Con M20) 20 Meq Tab.er.prt, 20 MEQ PO DAILYWBKFT for SUPPLEMENT for 10 Days, #10 Prescribed by: DUKE DE PAZ MD on 05/07/181250 Last Action: Continued on 06/16/181934 by JAZMIN OSULLIVAN Scheduled PRN Albuterol Sulfate (Proair Hfa Inhaler) 8.5 Gm Hfa.aer.ad, 2 PUFF INH PRN Q6HRS PRN for SHORTNESS OF BREATH, Ref 0 (Reported) Entered as Reported by: LIZZIE JIMENEZ on 05/07/17 0657 Last Action: Continued on 06/16/181934 by JAZMIN OSULLIVAN Hydrocodone Bit/Acetaminophen (Hydrocodone-Apap 7.5-325 ) 1 Tab Tablet, 1 TAB PO PRN Q4HRS PRN for PAIN MILD/MOD 1ST CHOICE MDD 1 for 10 Days, #20 Prescribed by: JAZMIN OSULLIVAN on 06/19/18 1042 JAZMIN OSULLIVAN MD Jun 19, 2018 10:45
[2018-06-19 11:00] VITALS: BP 157/87
--- NOTE | 2018-06-19 11:49 | NUR ---
SAMANTHA following. Discussed with RN and Dr. Juares. Pt is wanting to discharge home today, as it is his birthday. Dr. Juares is discharging patient with Invanz until Saturday as still awaiting culture results. SAMANTHA faxed [facility] infusion to determine cost. Pt is current with [facility] , so will need resumption of care orders. RN notified. SAMANTHA will continue to follow.
[2018-06-19 14:45] VITALS: BP 159/80
--- NOTE | 2018-06-19 14:53 | NUR ---
SAMANTHA cunningham. [facility] contacted SAMANTHA to advise pt will be responsible for $191 per week for home infusion. SAMANTHA met with pt, pt questioned whether there is a payment plan option. SAMANTHA clarified with [facility] and informed pt of payment plan options. Brown will come this early evening to teach when pt's is present. Resumption of home health orders to be faxed to [facility] (ph: [phone], fax: [phone]). RN notified. Addendum: 06/19/18 at 1537 by DAVINA SINGH Pt choice and rights letter signed and placed on chart.
--- NOTE | 2018-06-19 15:34 | PDOC2 ---
CONSULT Date of Consult Date of Consult DATE: 06/19/18 TIME: 13:07 Reason for Consult Reason for Consult: Consulted for wound care for incisional dehiscence of right lateral ankle. Identification/Chief Complaint Problems: (1) Osteomyelitis (2) Infected abrasion of right ankle (3) Sepsis Source Source: Chart review, Patient History of Present Illness Reason for Visit: Patient is a 72-year-old retired caucasion male who had a right ankle fracture on 05/03/18. Pt had surgery on 05/04/18 with plate and screw fixation of the lateral malleolus and Mr. Egan is a 72-year-old man who had an ankle fracture on 05/03/18. Surgery was performed on 05/04/18, with plate and and screw fixation of the syndesmosis. Pt was discharged with HH with a Cam Walker boot. Pt states his Cam Walker rubbed on the incision site. Pt was sent to the ER by his HH RN due to wound dehiscence and drainage. ID initiated IV Invanz. Ortho requested superficial wound bed debridement. Past Medical History Cardiovascular: CAD, HTN Past Surgical History Past Surgical History: Other (ORIF/ rt ankle sx May 04, 2018) Family History Family History: Diabetes Social History No ALCOHOL: none Drugs: None Lives: with Family Current Medications Current Medications Current Medications Sodium Chloride 1,000 ml @ 2,460 mls/hr Q25M IV Last administered on at 18:38; Start 06/16/18 at 16:56; Stop 06/16/18 at 17:56; Status DC Piperacillin Sod/ Tazobactam Sod 4.5 gm/Sodium Chloride 100 ml @ 200 mls/hr 1X ONCE IV Last administered on 06/16/18at 17:39; Start 06/16/18 at 17:00; Stop 06/16/18 at 17:29; Status DC Vancomycin HCl (Vanco Per Pharmacy) 1 each 1X ONCE MC ; Start 06/16/18 at 17:00 ; Stop 06/16/18 at 17:01; Status UNV Morphine Sulfate (Morphine Sulfate) 2 mg PRN Q15MIN PRN IV/SQ PAIN GREATER THAN 3/10 Last administered on 06/16/18at 19:48; Start 06/16/18 at 17:00; Stop at 08:46; Status DC Vancomycin HCl 2 gm/Sodium Chloride 500 ml @ 250 mls/hr 1X ONCE IV Last administered on 06/16/18 18:32; Start 06/16/18 at 17:15; Stop 06/16/18 at 19:14 ; Status DC Morphine Sulfate (Morphine Sulfate) 2 mg PRN Q2HR PRN IV PAIN; Start 06/16/18 at 19:45 Ondansetron HCl (Zofran) 4 mg PRN Q6HRS PRN IV NAUSEA/VOMITING; Start 06/16/18 at 19:45 Oxycodone/ Acetaminophen (Percocet 5/325) 1 tab PRN Q4HRS PRN PO PAIN 2ND CHOICE Last administered on 06/19/18 11:16; Start 06/16/18 at 19:45 Labetalol HCl (Normodyne Iv Push) 10 mg PRN Q2HR PRN IVP HYPERTENSION, SEE COMMENTS; Start 06/16/18 at 19:45 Diphenhydramine HCl (Benadryl) 25 mg PRN QHS PRN PO INSOMNIA Last administered on 06/18/18 21:02; Start 06/16/18 at 19:45 Albuterol Sulfate (Ventolin Neb Soln) 2.5 mg PRN Q6HRS PRN INH SHORTNESS OF BREATH Last administered on 06/17/18 08:03; Start 06/16/18 at 19:45 Ergocalciferol (Vitamin D2) 50,000 unit QTU PO Last administered on 06/17/18 16:46; Start 06/17/18 at 16:00 Ferrous Sulfate (Feosol) 325 mg BID PO Last administered on 06/19/18 08:11; Start 06/16/18 at 21:00 Acetaminophen/ Hydrocodone Bitart (Lortab 7.5/325) 1 tab PRN Q4HRS PRN PO PAIN MILD/MOD 1ST CHOICE Last administered on 06/17/18 23:47; Start 06/16/18 at 19: 45 Multivitamins (Thera M Plus) 1 tab DAILY PO Last administered on 06/19/18 08: 11; Start 06/17/18 at 09:00 Pantoprazole Sodium (Protonix) 40 mg DAILY07 PO Last administered on 06/19/18 05:19; Start 06/17/18 at 07:00 Potassium Chloride (Klor-Con) 20 meq DAILYWBKFT PO ; Start 06/17/18 at 08:00; Stop 06/17/18 at 08:34; Status DC Non-Formulary Medication (Losartan/ Hydrochlorothiazide (Losartan-Hctz 100-25 Mg Tab)) 1 tab DAILY PO ; Start 06/17/18 at 09:00; Status UNV Polyethylene Glycol (miraLAX PACKET) 17 gm DAILY PO ; Start 06/17/18 at 09:00 Losartan Potassium (Cozaar) 100 mg DAILY PO Last administered on 06/19/18at 08: 12; Start 06/17/18 at 09:00 Hydrochlorothiazide (Hydrodiuril) 25 mg DAILY PO Last administered on at 08:11; Start 06/17/18 at 09:00 Sodium Chloride 1,000 ml @ 100 mls/hr 1X ONCE IV Last administered on at 08:40; Start 06/16/18 at 20:00; Stop 06/17/18 at 05:59; Status DC Ondansetron HCl (Zofran) 4 mg PRN Q8HRS PRN IV NAUSEA/VOMITING; Start 06/16/18 at 19:45; Stop 06/17/18 at 08:47; Status DC Morphine Sulfate (Morphine Sulfate) 4 mg PRN Q2HR PRN IV PAIN; Start 06/16/18 at 19:45; Stop 06/17/18 at 08:47; Status DC Acetaminophen (Tylenol) 650 mg PRN Q4HRS PRN PO FEVER; Start 06/16/18 at 19:45 ; Stop 06/17/18 at 19:44; Status DC Sodium Chloride 1,000 ml @ 125 mls/hr 1X ONCE IV ; Start 06/16/18 at 19:45; Stop 06/17/18 at 03:44; Status DC Potassium Chloride (Klor-Con) 40 meq DAILYWBKFT PO Last administered on at 08:11; Start 06/17/18 at 09:00 Vancomycin HCl (Vanco Per Pharmacy) 1 each PRN DAILY PRN MC SEE COMMENTS Last administered on 06/19/18at 00:59; Start 06/17/18 at 08:45; Stop 06/19/18 at 08:58 ; Status DC Piperacillin Sod/ Tazobactam Sod (Zosyn Per Pharmacy) 1 each PRN DAILY PRN MC SEE COMMENTS; Start 06/17/18 at 08:45; Stop 06/19/18 at 10:32; Status DC Piperacillin Sod/ Tazobactam Sod 3.375 gm/Sodium Chloride 50 ml @ 100 mls/hr Q6HRS IV Last administered on 06/19/18at 05:19; Start 06/17/18 at 09:00; Stop at 08:57; Status DC Vancomycin HCl 2 gm/Sodium Chloride 500 ml @ 250 mls/hr Q12H IV Last administered on 06/17/18at 21:18; Start 06/17/18 at 10:00; Stop 06/18/18 at 10:28 ; Status DC Vancomycin HCl (Vancomycin Trough Level) 1 each 1X ONCE MC Last administered on 06/18/18at 09:30; Start 06/18/18 at 09:30; Stop 06/18/18 at 09:31; Status DC Lactobacillus Rhamnosus (Culturelle) 1 cap BID PO Last administered on at 08:11; Start 06/17/18 at 21:00 Lidocaine/Sodium Bicarbonate (Buffered Lidocaine 1%) 3 ml STK-MED ONCE .ROUTE ; Start 06/18/18 at 10:13; Stop 06/18/18 at 10:14; Status DC Lidocaine/Sodium Bicarbonate (Buffered Lidocaine 1%) 6 ml 1X ONCE INJ Last administered on 06/18/18at 10:30; Start 06/18/18 at 10:30; Stop 06/18/18 at 10:31 ; Status DC Vancomycin HCl (Vancomycin Random Level) 1 each 1X ONCE MC Last administered on 06/18/18at 21:00; Start 06/18/18 at 21:00; Stop 06/18/18 at 21:01; Status DC Calcium Carbonate/ Glycine (Tums) 500 mg PRN AFTMEALHC PRN PO INDIGESTION Last administered on 06/18/18at 11:55; Start 06/18/18 at 11:45 Vancomycin HCl 2 gm/Sodium Chloride 500 ml @ 250 mls/hr Q24H IV Last administered on 06/18/18at 23:17; Start 06/18/18 at 23:00; Stop 06/19/18 at 08:57 ; Status DC Vancomycin HCl (Vancomycin Trough Level) 1 each 1X ONCE MC ; Start 06/20/18 at 22:30; Stop 06/20/18 at 22:31; Status Cancel Potassium Chloride (Klor-Con) 20 meq 1X ONCE PO Last administered on at 11:11; Start 06/19/18 at 09:30; Stop 06/19/18 at 09:31; Status DC Ertapenem 50 ml @ 100 mls/hr 1X ONCE IV Last administered on 06/19/18at 11:11 ; Start 06/19/18 at 10:00; Stop 06/19/18 at 10:29; Status DC Active Scripts Active Hydrocodone-Apap 7.5-325 (Hydrocodone Bit/Acetaminophen) 1 Tab Tablet 1 Tab PO PRN Q4HRS PRN MDD 1 10 Days Thera-M Tablet (Multivits,Ca,Minerals/Iron/Fa) 1 Each Tablet 1 Tab PO DAILY 30 Days Vitamin D2 (Ergocalciferol (Vitamin D2)) 50,000 Unit Capsule 50,000 Unit PO TU 7 Days Klor-Con M20 (Potassium Chloride) 20 Meq Tab.er.prt 20 Meq PO DAILYWBKFT 10 Days Enoxaparin Sodium 40 Mg/0.4 Ml Disp.syrin 40 Mg SQ Q24H 14 Days Reported Losartan-Hctz 100-25 Mg Tab (Losartan/Hydrochlorothiazide) 1 Each Tablet 1 Tab PO DAILY Polyethylene Glycol 3350 2,500 Gm Powder 17 Gm PO DAILY Protonix (Pantoprazole Sodium) 40 Mg Tablet.dr 40 Mg PO DAILY07 Ferrous Sulfate 325 Mg Tablet 325 Mg PO BID Proair Hfa Inhaler (Albuterol Sulfate) 8.5 Gm Hfa.aer.ad 2 Puff INH PRN Q6HRS PRN Aspirin 81 Mg Tab.chew 81 Mg PO DAILY Allergies Allergies: Coded Allergies: shellfish derived (Verified Allergy, Mild, makes him drowsy, 06/19/18) ROS Review of System CONSTITUTIONAL: No fever or chills EYES: No recent changes SKIN: No rash or itching. Open wound to right lateral ankle as noted above. Pt c/o pain with cleansing and palpation of the area. CARDIOVASCULAR: No chest pain, syncope, palpitations, or edema RESPIRATORY: No SOB or cough GASTROINTESTINAL: No nausea, vomiting or abdominal pain NEUROLOGICAL: No headaches or weakness ENDOCRINE: No cold or heat intolerance GENITOURINARY: No urgency or frequency of urination MUSCULOSKELETAL: No back pain or joint pain LYMPHATICS: No enlarged lymph nodes PSYCHIATRIC: No anxiety or depression Physical Exam General: Alert, Oriented X3, Cooperative, No acute distress HEENT: Atraumatic, EOMI Lungs: Clear to auscultation, Normal air movement Heart: Regular rate Abdomen: Soft, No tenderness Extremities: No clubbing, Other (1+ RLE edema) Skin: No rashes, Other (Right lateral ankle with wound dehiscence. Pictured with measurements noted in paper chart. Wound bed 70% thin slough, 30% granulation. Edges attached and not rolling. Surrounding tissue with mild erythema which is blanchable, but not indurated. Minimal serous drainage noted. No odor following cleansing. ) Vitals VITALS Vital Signs Date Time Temp Pulse Resp B/P (MAP) Pulse Ox O2 Delivery O2 Flow Rate FiO2 06/19/18 12:16 Room Air 06/19/18 11:00 97.9 72 18 157/87 (110) 96 97.9 Labs Labs Laboratory Tests Test 06/18/18 03:10 06/18/18 09:15 06/18/18 21:15 06/19/18 05:00 Creatinine 0.9 mg/dL (0.7-1.3) 0.9 mg/dL (0.7-1.3) Estimated GFR (Cockcroft-Gault) 83.4 83.2 Vancomycin Level Trough 21.4 mcg/mL (10.0-20.0) Vancomycin Last Dose Date 06/17/18 Vancomycin Last Dose Time 2200 Random Vancomycin Level 12.3 mcg/mL White Blood Count 3.4 x10^3/uL (4.0-11.0) Red Blood Count 2.50 x10^6/uL (4.30-5.70) Hemoglobin 7.7 g/dL (13.0-17.5) Hematocrit 23.5 % (39.0-53.0) Mean Corpuscular Volume 94 fL (79-100) Mean Corpuscular Hemoglobin 31 pg (25-35) Mean Corpuscular Hemoglobin Concent 33 g/dL (31-37) Red Cell Distribution Width 15.6 % (11.5-14.5) Platelet Count 172 x10^3/uL (140-400) Neutrophils (%) (Auto) 57 % (31-73) Lymphocytes (%) (Auto) 27 % (24-48) Monocytes (%) (Auto) 13 % (0-9) Eosinophils (%) (Auto) 3 % (0-3) Basophils (%) (Auto) 1 % (0-3) Neutrophils # (Auto) 1.9 x10^3uL (1.8-7.7) Lymphocytes # (Auto) 0.9 x10^3/uL (1.0-4.8) Monocytes # (Auto) 0.5 x10^3/uL (0.0-1.1) Eosinophils # (Auto) 0.1 x10^3/uL (0.0-0.7) Basophils # (Auto) 0.0 x10^3/uL (0.0-0.2) Sodium Level 140 mmol/L (136-145) Potassium Level 3.4 mmol/L (3.5-5.1) Chloride Level 104 mmol/L (98-107) Carbon Dioxide Level 26 mmol/L (21-32) Anion Gap 10 (6-14) Blood Urea Nitrogen 5 mg/dL (8-26) Glucose Level 104 mg/dL (70-99) Calcium Level 8.0 mg/dL (8.5-10.1) Laboratory Tests Test 06/18/18 21:15 06/19/18 05:00 Random Vancomycin Level 12.3 mcg/mL White Blood Count 3.4 x10^3/uL (4.0-11.0) Red Blood Count 2.50 x10^6/uL (4.30-5.70) Hemoglobin 7.7 g/dL (13.0-17.5) Hematocrit 23.5 % (39.0-53.0) Mean Corpuscular Volume 94 fL (79-100) Mean Corpuscular Hemoglobin 31 pg (25-35) Mean Corpuscular Hemoglobin Concent 33 g/dL (31-37) Red Cell Distribution Width 15.6 % (11.5-14.5) Platelet Count 172 x10^3/uL (140-400) Neutrophils (%) (Auto) 57 % (31-73) Lymphocytes (%) (Auto) 27 % (24-48) Monocytes (%) (Auto) 13 % (0-9) Eosinophils (%) (Auto) 3 % (0-3) Basophils (%) (Auto) 1 % (0-3) Neutrophils # (Auto) 1.9 x10^3uL (1.8-7.7) Lymphocytes # (Auto) 0.9 x10^3/uL (1.0-4.8) Monocytes # (Auto) 0.5 x10^3/uL (0.0-1.1) Eosinophils # (Auto) 0.1 x10^3/uL (0.0-0.7) Basophils # (Auto) 0.0 x10^3/uL (0.0-0.2) Sodium Level 140 mmol/L (136-145) Potassium Level 3.4 mmol/L (3.5-5.1) Chloride Level 104 mmol/L (98-107) Carbon Dioxide Level 26 mmol/L (21-32) Anion Gap 10 (6-14) Blood Urea Nitrogen 5 mg/dL (8-26) Creatinine 0.9 mg/dL (0.7-1.3) Estimated GFR (Cockcroft-Gault) 83.2 Glucose Level 104 mg/dL (70-99) Calcium Level 8.0 mg/dL (8.5-10.1) Assessment/Plan Assessment/Plan 1. Right lateral ankle wound dehiscence with infection - Following explanation of risks and benefits of wound debridement, pt consented. Topical lidocaine applied to the wound bed. Following adequate timing , sterile scissors and dermal curette used to selective debride nonviable tissue from wound bed. Minimal bleeding controlled with pressure. Pt denied pain throughout procedure. Following debridement, wound bed 40% thin slough and 60% granulation. No hardware, tendon or bony prominences visible or palpable. - Cleanse and pat dry. Apply Honey Alginate to wound bed to encourage autolytic debridement. Cover with foam adhesive. Change every 3 days or prn if dressing loose or saturated. - Pt to f/u in the wound care center in 1 week. - ID consulting for IV abx Thank you for the consult. We will continue to follow the pt on an outpt basis following today's discharge. ELZBIETA TREJO APRN Jun 19, 2018 15:34
[2018-06-19] MEDS: CALCIUM CARBONATE 500 MG TAB.CHEW PO PRN (15:41)
--- NOTE | 2018-06-19 19:37 | NUR ---
Pt discharged home with home health and infusion therapy. [facility] health resumed. [facility] RN provided teaching for daily infusions. Discussed discharge instructions and prescriptions. Pt verbalized understanding. PICC line remained in place. Dressing was changed 06/19 by andrew RN. All belongings were packed by pt . He was taken via wheelchair to main entrance and was secured in vehicle.
[2018-07-19] MEDS ORDERED: RIVA10TA PO (10:19)
[2018-08-01] MEDS ORDERED: LINE600I PO (11:14)
[2018-08-01] MEDS ORDERED: HYDR-2765 PO (11:14)
== END 2018-06-19 18:45 | disposition home health service (06) | DRG 856 ==
LOC: ER 14:18 → 4 NORTH 19:25
PROVIDERS: ADMIT Internal Medicine; ATTEND Internal Medicine
PROC: 0JBQ0ZZ Excision of Right Foot Subcutaneous Tissue and Fascia, Open Approach (ICD-10-PCS; 2018-06-17)
PROC: 02HV33Z Insertion of Infusion Device into Superior Vena Cava, Percutaneous Approach (ICD-10-PCS; principal; 2018-06-18)
PROC: B5181ZA Fluoroscopy of Superior Vena Cava using Low Osmolar Contrast, Guidance (ICD-10-PCS; 2018-06-18)
PROC: B548ZZA Ultrasonography of Superior Vena Cava, Guidance (ICD-10-PCS; 2018-06-18)
DX: T81.41XA Infection following a procedure, superficial incisional surgical site, initial encounter (principal); A41.9 Sepsis, unspecified organism; M86.8X7 Other osteomyelitis, ankle and foot; T81.32XA Disruption of internal operation (surgical) wound, not elsewhere classified, initial encounter; E44.1 Mild protein-calorie malnutrition; E87.1 Hypo-osmolality and hyponatremia; I10 Essential (primary) hypertension; I25.10 Atherosclerotic heart disease of native coronary artery without angina pectoris; J45.909 Unspecified asthma, uncomplicated; E87.6 Hypokalemia; S90.511A Abrasion, right ankle, initial encounter; L08.9 Local infection of the skin and subcutaneous tissue, unspecified; Y83.8 Other surgical procedures as the cause of abnormal reaction of the patient, or of later complication, without mention of misadventure at the time of the procedure; Z96.659 Presence of unspecified artificial knee joint; Z83.3 Family history of diabetes mellitus; Z79.899 Other long term (current) drug therapy; Z79.82 Long term (current) use of aspirin; Z91.013 Allergy to seafood; Y92.89 Other specified places as the place of occurrence of the external cause; Z68.34 Body mass index [BMI] 34.0-34.9, adult
CPT/HCPCS: 36415; 36569; 73610; 76937; 77001; 80048; 80053; 80202; 82565; 83605; 84145; 85025; 85610; 85651; 85730; 87040; 87071; 87075; 87186; 94640; 94760; 96365; 96366; 96367; C1751; C1769; C1892; J1335; J2270; J2543; J3370; J7030; J7040; J7613; Q0163; 97116; 99285-25

== ENCOUNTER 2018-06-23 11:41 | Emergency (ER) | payer OTHER ==
[~2018-06-23] VITALS: Ht 182.9 cm; Wt 121.6 kg
[2018-06-23 12:14] VITALS: BP 153/72
--- NOTE | 2018-06-23 13:15 | RAD ---
CHEST PA LATERAL History: PICC LINE CAME OUT Comparison: None. Findings: Frontal and lateral views of chest were obtained. Right-sided PICC is identified to terminate overlying the superior vena cava. 2 lateral views were provided by the costophrenic angles are not fully included on either of the views. The cardiomediastinal silhouette is normal. Pulmonary vasculature is normal. The lungs are clear. No significant pleural effusion or pneumothorax is seen. There is no acute bone abnormality. Compression deformities of the low thoracic spine are present and indeterminate age. IMPRESSION: No acute cardiopulmonary process. Right-sided PICC appears to be in place. No pneumothorax. Electronically signed by: Andrews Briones MD (06/23/2018 1:12 PM) [id number]
--- NOTE | 2018-06-23 14:05 | PHYS DOC ---
Past Medical History Past Medical History: Asthma, Hypertension Past Surgical History: Knee Replacement, Other Additional Past Surgical Histo: RT ANKLE-2018 Alcohol Use: Heavy Drug Use: None Adult General Chief Complaint Chief Complaint: OTHER COMPLAINTS HPI HPI Patient is a 73 year old male who presents with right sided PICC line when he awoke this morning he was bleeding from the PICC line area. Patient came into the ED today to make sure that it was still in place and working. Review of Systems Review of Systems Constitutional: Denies fever or chills [] Eyes: Denies change in visual acuity, redness, or eye pain [] HENT: Denies nasal congestion or sore throat [] Respiratory: Denies cough or shortness of breath [] Cardiovascular: No additional information not addressed in HPI [] GI: Denies abdominal pain, nausea, vomiting, bloody stools or diarrhea [] : Denies dysuria or hematuria [] Musculoskeletal: Denies back pain or joint pain [] Integument: Denies rash or skin lesions [] Neurologic: Denies headache, focal weakness or sensory changes [] Endocrine: Denies polyuria or polydipsia [] All other systems were reviewed and found to be within normal limits, except as documented in this note. Allergies Allergies Allergies Coded Allergies Type Severity Reaction Last Updated Verified shellfish derived Allergy Mild makes him drowsy 06/19/18 Yes Physical Exam Physical Exam Constitutional: Well developed, well nourished, no acute distress, non-toxic appearance. [] HENT: Normocephalic, atraumatic, bilateral external ears normal, oropharynx moist, no oral exudates, nose normal. [] Eyes: PERRLA, EOMI, conjunctiva normal, no discharge. [] Neck: Normal range of motion, no tenderness, supple, no stridor. [] Cardiovascular:Heart rate regular rhythm, no murmur [] Lungs & Thorax: Bilateral breath sounds clear to auscultation [] Abdomen: Bowel sounds normal, soft, no tenderness, no masses, no pulsatile masses. [] Skin: Warm, dry, no erythema, no rash. [] Back: No tenderness, no CVA tenderness. [] Extremities: No tenderness, no cyanosis, no clubbing, ROM intact, no edema. [] Neurologic: Alert and oriented X 3, normal motor function, normal sensory function, no focal deficits noted. [] Psychologic: Affect normal, judgement normal, mood normal. [] Current Patient Data Vital Signs Vital Signs Date Time Temp Pulse Resp B/P (MAP) Pulse Ox O2 Delivery O2 Flow Rate FiO2 06/23/18 12:14 97.5 95 18 153/72 (99) 98 Room Air 97.5 EKG EKG [] Radiology/Procedures Radiology/Procedures [] Impressions: [facility] [address] [place] [address] IMAGING REPORT Signed PATIENT: DUKE HUNTER ACCOUNT: [id number] : 1945 LOCATION: ER AGE: 73 SEX: M EXAM STATUS: REG ER ORD. PHYSICIAN: SAM AMBROCIO APRN REASON: picc line came out PROCEDURE: CHEST PA & LATERAL CHEST PA LATERAL History: PICC LINE CAME OUT Comparison: None. Findings: Frontal and lateral views of chest were obtained. Right-sided PICC is identified to terminate overlying the superior vena cava. 2 lateral views were provided by the costophrenic angles are not fully included on either of the views. The cardiomediastinal silhouette is normal. Pulmonary vasculature is normal. The lungs are clear. No significant pleural effusion or pneumothorax is seen. There is no acute bone abnormality. Compression deformities of the low thoracic spine are present and indeterminate age. IMPRESSION: No acute cardiopulmonary process. Right-sided PICC appears to be in place. No pneumothorax. Electronically signed by: Andrews Ring MD (06/23/2018 1:12 PM) [id number] DICTATED and SIGNED BY: ANDREWS RING MD DATE: 06/23/18 1308 Course & Med Decision Making Course & Med Decision Making Patient is a 73 year old male who presents with right sided PICC line when he awoke this morning he was bleeding from the PICC line area. Patient came into the ED today to make sure that it was still in place and working. There's was able to flush PICC line and poor blood back without any complications. The nurses redress the PICC line with a new dressing. Patient denies any shortness of breath or chest pain. Patient right arm is swollen 1+ due to tight medical tape around the arm at picc site that was placed by prior to arrival. Patient denies any numbness or tingling and radial pulse is strong and palpable. Chest x-ray shows No acute cardiopulmonary process. Right-sided PICC appears to be in place. No pneumothorax. Patient follow-up with his primary care provider needed. Dragon Disclaimer Dragon Disclaimer This electronic medical record was generated, in whole or in part, using a voice recognition dictation system. Departure Departure Impression: Primary Impression: Encounter for medical screening examination Disposition: HOME, SELF-CARE Condition: STABLE Referrals: FARHAN MARTINEZ MD (PCP) Patient Instructions: Medical Screening Exam Additional Instructions: Follow-up with primary care provider if needed. SAM AMBROCIO APRN Jun 23, 2018 14:05
[2018-08-01] MEDS ORDERED: LINE600I PO (11:14)
[2018-08-01] MEDS ORDERED: HYDR-2765 PO (11:14)
== END 2018-06-23 14:09 | disposition home or self-care (01) ==
LOC: ER 11:41
DX: T82.838A Hemorrhage due to vascular prosthetic devices, implants and grafts, initial encounter (principal); I10 Essential (primary) hypertension; J45.909 Unspecified asthma, uncomplicated; Z91.013 Allergy to seafood; Y92.89 Other specified places as the place of occurrence of the external cause
CPT/HCPCS: 71046; 99285-25

== ENCOUNTER 2018-07-15 19:38 | Inpatient (IN) | payer OTHER ==
[~2018-07-15] VITALS: Ht 188 cm; Wt 123.2 kg
[2018-07-15] MEDS ORDERED: ALBUTEROL SULFATE 2.5 MG/3 ML NEBU. NEB ONE (20:30)
[2018-07-15 20:42] LABS: BASO % 1 % (0-3); EOS # 0.1 x10^3/uL (0.0-0.7); EOS % 2 % (0-3); HEMATOCRIT 24.2 % (39.0-53.0); HEMOGLOBIN 7.5 g/dL (13.0-17.5); LYMPH # 0.6 x10^3/uL (1.0-4.8); LYMPH % 16 % (24-48); MEAN CORPUSCULAR HEMOGLOBIN 28 pg (25-35); MEAN CORPUSCULAR HGB CONC 31 g/dL (31-37); MEAN CORPUSCULAR VOLUME 91 fL (79-100); MONO # 0.5 x10^3/uL (0.0-1.1); MONO % 14 % (0-9); NEUT # 2.7 x10^3uL (1.8-7.7); NEUT % 68 % (31-73); PLATELET COUNT 189 x10^3/uL (140-400); RED BLOOD COUNT 2.67 x10^6/uL (4.30-5.70); WHITE BLOOD COUNT 3.9 x10^3/uL (4.0-11.0)
[2018-07-15 20:55] LABS: CALCIUM 8.2 mg/dL (8.5-10.1); GFR 73.7; POTASSIUM 3.4 mmol/L (3.5-5.1)
[2018-07-15 21:01] LABS: ALBUMIN 2.4 g/dL (3.4-5.0); ALBUMIN/GLOBULIN RATIO 0.7 (1.0-1.7); TOTAL BILIRUBIN 0.4 mg/dL (0.2-1.0); TOTAL PROTEIN 5.9 g/dL (6.4-8.2)
[2018-07-15] MEDS ORDERED: POTASSIUM CHLORIDE 20 MEQ TABLET.ER. PO ONE (21:15)
[2018-07-15] MEDS ORDERED: fentaNYL PF VIAL 100 MCG/2 ML VIAL IV PRN (21:45)
[2018-07-15] MEDS ORDERED: ONDANSETRON PF 4 MG/2 ML VIAL. IV PRN (21:45)
[2018-07-15] MEDS ORDERED: MEROPENEM 1 GM in IV NORMAL SALINE 100ML 100 ML IV SCH (22:00)
[2018-07-15] MEDS ORDERED: MEROPENEM 1 GM in IV NORMAL SALINE 100ML 100 ML IV ONE (22:00)
[2018-07-15 22:05] LABS: BILIRUBIN,URINE NEGATIVE (NEG); CLARITY,URINE CLEAR; COLOR,URINE YELLOW; NITRITE,URINE NEGATIVE (NEG); PH,URINE 7.5; PROTEIN,URINE NEGATIVE (NEG-TRACE); UROBILINOGEN,URINE 0.2 mg/dL (0.2 mg/dL)
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
[2018-07-15 22:16] LABS: BACTERIA,URINE 0 /HPF (0-FEW); RBC,URINE 0 /HPF (0-2); SQUAMOUS EPITHELIAL CELL,UR OCC /LPF; WBC,URINE 0 /HPF (0-4)
[2018-07-15 22:17] LABS: YEAST,URINE PRESENT /HPF
[2018-07-15] MEDS ORDERED: HYDR-2765 PO (22:57)
[2018-07-15] MEDS ORDERED: TRAM50TA PO (22:57)
[2018-07-15 22:58] VITALS: BP 158/84
[2018-07-16] VITALS (8 sets, daily range): BP systolic 134–155; BP diastolic 38–83
--- NOTE | 2018-07-16 00:26 | RAD ---
EXAM: PA and Lateral Views of the Chest DATE: 07/15/2018 8:41 PM INDICATION: COARSE BREATH SOUNDS COMPARISON: No Prior FINDINGS: 1. Mild cardiomegaly. Atherosclerotic calcifications of the tortuous aorta are seen. 2. Right upper extremity PICC tip projects over the mid SVC. 3. Patchy left lung base and right infrahilar opacities possibly consolidation or atelectasis. 4. No pleural effusion or pneumothorax. 5. Multilevel degenerative changes of spine are seen. Electronically signed by: Kevin Fountain MD (07/16/2018 12:23 AM) [facility]
[2018-07-16] MEDS: IV NORMAL SALINE 1000ML BAG 1,000 ML IV SCH ×2 (02:32→09:41)
[2018-07-16] MEDS ORDERED: MEROPENEM 1 GM in IV NORMAL SALINE 100ML 100 ML IV SCH (06:00)
[2018-07-16] MEDS ORDERED: HYDROcodone/APAP 7.5/325MG 1 TAB TABLET PO PRN (09:00)
[2018-07-16] MEDS ORDERED: ALBUTEROL SULFATE 2.5 MG/3 ML NEBU. INH PRN (09:00)
[2018-07-16] MEDS ORDERED: NON FORMULARY ITEM (Losartan/Hydrochlorothiazide (Losartan-Hctz 100-25 Mg Tab) 1 TAB) PO SCH (09:00)
[2018-07-16] MEDS ORDERED: ONDANSETRON PF 4 MG/2 ML VIAL. IV PRN (09:00)
[2018-07-16] MEDS: IPRATRPIUM/ALBUTEROL 0.5/2.5MG 3 ML NEBU. NEB SCH ×4 (09:30→21:10)
[2018-07-16] MEDS: hydroCHLOROthiazide 25 MG TABLET PO SCH (09:39)
[2018-07-16] MEDS: FERROUS SULFATE 325 MG TABLET. PO SCH ×2 (09:40→22:02)
[2018-07-16] MEDS: MULTIVITAMIN with MINERAL TABLET. PO SCH (09:40)
[2018-07-16] MEDS: LOSARTAN POTASSIUM 50 MG TABLET. PO SCH (09:40)
[2018-07-16] MEDS: ASPIRIN CHEWABLE 81 MG TABLET. PO SCH (09:40)
[2018-07-16] MEDS: HYDROcodone/APAP 7.5/325MG 1 TAB TABLET PO PRN ×2 (09:42→22:02)
--- NOTE | 2018-07-16 11:31 | PDOC1 ---
History and Physical Date of Admission Date of Admission DATE: 07/16/18 TIME: 11:23 Identification/Chief Complaint Chief Complaint sent By home health RN because of low blood pressure-mildly symptomatic Source Source: Caregiver, Chart review, Patient History of Present Illness History of Present Illness 73-year-old male who has had a complicated left foot/ankle history since orthopedic surgery by Dr. Dalal in April 2018. He has a right indwelling PICC and on his second week of his IV antibiotics (unrecalled name of abx) He has home health coming in every day for the 30 minute infusion and some physical therapy. Home health RN noted to have hypotension, he was mildly symptomatic, hence advised ER. At ER blood pressure was actually on the high side. I did inspect the left foot wound and it looks amazingly clean. Wbc 13 with hemoglobin 7.5. She follows closely with wound care and I think wound care is doing and also job with the wound. I think we can check orthostatics, PT OT. If he has no issues with that he can go home tomorrow with current home health. We'll continue the IV antibiotic sees getting from home health daily via right PICC Past Medical History Cardiovascular: CAD, HTN Past Surgical History Past Surgical History: Other (left foot/ankle surgery by orthopedics) Family History Family History: No Significant, Diabetes Social History Smoke: No ALCOHOL: none Drugs: None Current Problem List Problem List Problems Medical Problems: (1) Cellulitis Status: Acute (2) CHF (congestive heart failure) Status: Acute (3) Elevated lactic acid level Status: Acute Current Medications Current Medications Current Medications Albuterol Sulfate (Ventolin Neb Soln) 2.5 mg 1X ONCE NEB Last administered on 07/15/18at 20:26; Start 07/15/18 at 20:30; Stop 07/15/18 at 20:31; Status DC Potassium Chloride (Klor-Con) 40 meq 1X ONCE PO Last administered on at 21:34; Start 07/15/18 at 21:15; Stop 07/15/18 at 21:16; Status DC Meropenem 1 gm/ Sodium Chloride 100 ml @ 200 mls/hr Q8HRS IV Last administered on 07/16/18at 05:37; Start 07/16/18 at 06:00 Ondansetron HCl (Zofran) 4 mg PRN Q8HRS PRN IV NAUSEA/VOMITING; Start 07/15/18 at 21:45; Stop 07/16/18 at 08:59; Status DC Fentanyl Citrate (Fentanyl 2ml Vial) 50 mcg PRN Q1HR PRN IV PAIN Last administered on 07/16/18 02:40; Start 07/15/18 at 21:45; Stop 07/16/18 at 21:44 Sodium Chloride 1,000 ml @ 75 mls/hr [id number] IV Last administered on 09:41; Start 07/15/18 at 21:31; Stop 07/16/18 at 21:30 Albuterol/ Ipratropium (Duoneb) 3 ml RTQID NEB Last administered on 07/16/18 09:30; Start 07/16/18 at 08:00; Stop 07/17/18 at 07:59 Meropenem 1 gm/ Sodium Chloride 100 ml @ 200 mls/hr Q8HRS IV ; Start 07/15/18 at 22:00; Stop 07/15/18 at 22:00; Status DC Meropenem 1 gm/ Sodium Chloride 100 ml @ 200 mls/hr ONCE ONCE IV Last administered on 07/15/18at 21:52; Start 07/15/18 at 22:00; Stop 07/15/18 at 22:29 ; Status DC Ondansetron HCl (Zofran) 4 mg PRN Q6HRS PRN IV NAUSEA/VOMITING; Start 07/16/18 at 09:00 Albuterol Sulfate (Ventolin Neb Soln) 2.5 mg PRN Q6HRS PRN INH SHORTNESS OF BREATH; Start 07/16/18 at 09:00 Aspirin (Children'S Aspirin) 81 mg DAILY PO Last administered on 07/16/18 09: 40; Start 07/16/18 at 10:00 Ergocalciferol (Vitamin D2) 50,000 unit Tu PO ; Start 07/22/18 at 09:00 Ferrous Sulfate (Feosol) 325 mg BID PO Last administered on 07/16/18at 09:40; Start 07/16/18 at 10:00 Acetaminophen/ Hydrocodone Bitart (Lortab 7.5/325) 1 tab PRN Q4HRS PRN PO MODERATE PAIN Last administered on 3/27/19at 09:42; Start 07/16/18 at 09:00 Acetaminophen/ Hydrocodone Bitart (Lortab 7.5/325) 1 tab PRN Q4HRS PRN PO PAIN ; Start 07/16/18 at 09:00; Status UNV Multivitamins (Thera M Plus) 1 tab DAILY PO Last administered on 07/16/18at 09: 40; Start 07/16/18 at 10:00 Tramadol HCl (Ultram) 50 mg PRN TID PRN PO MILD PAIN; Start 07/16/18 at 09:00 Non-Formulary Medication (Losartan/ Hydrochlorothiazide (Losartan-Hctz 100-25 Mg Tab)) 1 tab DAILY PO ; Start 07/16/18 at 09:00; Status UNV Polyethylene Glycol (miraLAX PACKET) 17 gm PRN DAILY PRN PO CONSTIPATION; Start 07/17/18 at 09:00 Losartan Potassium (Cozaar) 100 mg DAILY PO Last administered on 07/16/18at 09: 40; Start 07/16/18 at 10:00 Hydrochlorothiazide (Hydrodiuril) 25 mg DAILY PO Last administered on at 09:39; Start 07/16/18 at 10:00 Active Scripts Active Hydrocodone-Apap 7.5-325 (Hydrocodone Bit/Acetaminophen) 1 Tab Tablet 1 Tab PO PRN Q4HRS PRN MDD 1 10 Days Thera-M Tablet (Multivits,Ca,Minerals/Iron/Fa) 1 Each Tablet 1 Tab PO DAILY 30 Days Vitamin D2 (Ergocalciferol (Vitamin D2)) 50,000 Unit Capsule 50,000 Unit PO TU 7 Days Reported Hydrocodone-Apap 7.5-325 (Hydrocodone Bit/Acetaminophen) 1 Tab Tablet 1 Tab PO PRN Q4HRS PRN Tramadol Hcl 50 Mg Tablet 50 Mg PO PRN TID PRN Losartan-Hctz 100-25 Mg Tab (Losartan/Hydrochlorothiazide) 1 Each Tablet 1 Tab PO DAILY Polyethylene Glycol 3350 2,500 Gm Powder 17 Gm PO PRN DAILY PRN Ferrous Sulfate 325 Mg Tablet 325 Mg PO BID Proair Hfa Inhaler (Albuterol Sulfate) 8.5 Gm Hfa.aer.ad 2 Puff INH PRN Q6HRS PRN Aspirin 81 Mg Tab.chew 81 Mg PO DAILY Allergies Allergies: Coded Allergies: shellfish derived (Verified Allergy, Mild, makes him drowsy, 06/19/18) ROS Review of System A 14 point ROS was completed with the following noted as positive: Other systems reviewed and negative. \CONSTITUTIONAL: No fever or chills EYES: No recent changes SKIN: No rash or itching CARDIOVASCULAR: No chest pain, syncope, palpitations, or edema RESPIRATORY: No SOB or cough GASTROINTESTINAL: No nausea, vomiting or abdominal pain NEUROLOGICAL: No headaches or weakness ENDOCRINE: No cold or heat intolerance GENITOURINARY: No urgency or frequency of urination MUSCULOSKELETAL: No back pain or joint pain LYMPHATICS: No enlarged lymph nodes PSYCHIATRIC: No anxiety or depression Physical Exam General: Alert, Oriented X3, Cooperative, No acute distress HEENT: Atraumatic, PERRLA, EOMI Lungs: Clear to auscultation, Normal air movement Heart: S1S2, RRR, no thrills, no rubs, no gallops, no murmurs Cardiovascular: S1, S2 Abdomen: Normal bowel sounds, Soft, No tenderness, No hepatosplenomegaly, No masses Male Genitals Exam: normal genitalia, normal prostate Rectal Exam: not examined Skin: Other (left ankle/foot wound looks amazingly good) Neuro: Normal gait, Normal speech, Strength at 5/5 X4 ext, Normal tone, Sensation intact, Cranial nerves 3-12 NL, Reflexes 2+ Psych/Mental Status: Mental status NL, Mood NL Vitals Vitals Vital Signs Date Time Temp Pulse Resp B/P (MAP) Pulse Ox O2 Delivery O2 Flow Rate FiO2 07/16/18 10:52 Room Air 07/16/18 09:40 76 145/38 07/16/18 09:32 92 07/16/18 07:20 97.8 20 97.8 Labs Labs Laboratory Tests Test 07/15/18 20:30 07/15/18 21:50 White Blood Count 3.9 x10^3/uL (4.0-11.0) Red Blood Count 2.67 x10^6/uL (4.30-5.70) Hemoglobin 7.5 g/dL (13.0-17.5) Hematocrit 24.2 % (39.0-53.0) Mean Corpuscular Volume 91 fL (79-100) Mean Corpuscular Hemoglobin 28 pg (25-35) Mean Corpuscular Hemoglobin Concent 31 g/dL (31-37) Red Cell Distribution Width 18.0 % (11.5-14.5) Platelet Count 189 x10^3/uL (140-400) Neutrophils (%) (Auto) 68 % (31-73) Lymphocytes (%) (Auto) 16 % (24-48) Monocytes (%) (Auto) 14 % (0-9) Eosinophils (%) (Auto) 2 % (0-3) Basophils (%) (Auto) 1 % (0-3) Neutrophils # (Auto) 2.7 x10^3uL (1.8-7.7) Lymphocytes # (Auto) 0.6 x10^3/uL (1.0-4.8) Monocytes # (Auto) 0.5 x10^3/uL (0.0-1.1) Eosinophils # (Auto) 0.1 x10^3/uL (0.0-0.7) Basophils # (Auto) 0.0 x10^3/uL (0.0-0.2) Sodium Level 137 mmol/L (136-145) Potassium Level 3.4 mmol/L (3.5-5.1) Chloride Level 101 mmol/L (98-107) Carbon Dioxide Level 27 mmol/L (21-32) Anion Gap 9 (6-14) Blood Urea Nitrogen 14 mg/dL (8-26) Creatinine 1.0 mg/dL (0.7-1.3) Estimated GFR (Cockcroft-Gault) 73.7 BUN/Creatinine Ratio 14 (6-20) Glucose Level 91 mg/dL (70-99) Lactic Acid Level 2.1 mmol/L (0.4-2.0) Calcium Level 8.2 mg/dL (8.5-10.1) Total Bilirubin 0.4 mg/dL (0.2-1.0) Aspartate Amino Transf (AST/SGOT) 19 U/L (15-37) Alanine Aminotransferase (ALT/SGPT) 17 U/L (16-63) Alkaline Phosphatase 81 U/L (46-116) ZN-Cny-D-Type Natriuretic Peptide 4691 pg/mL (0-124) Total Protein 5.9 g/dL (6.4-8.2) Albumin 2.4 g/dL (3.4-5.0) Albumin/Globulin Ratio 0.7 (1.0-1.7) Urine Collection Type Unknown Urine Color Yellow Urine Clarity Clear Urine pH 7.5 Urine Specific [place] 1.010 Urine Protein Negative mg/dL (NEG-TRACE) Urine Glucose (UA) Negative mg/dL (NEG) Urine Ketones (Stick) Negative mg/dL (NEG) Urine Blood Negative (NEG) Urine Nitrite Negative (NEG) Urine Bilirubin Negative (NEG) Urine Urobilinogen Dipstick 0.2 mg/dL (0.2 mg/dL) Urine Leukocyte Esterase Negative (NEG) Urine RBC 0 /HPF (0-2) Urine WBC 0 /HPF (0-4) Urine Squamous Epithelial Cells Occ /LPF Urine Bacteria 0 /HPF (0-FEW) Urine Yeast Present /HPF Laboratory Tests Test 07/15/18 20:30 07/15/18 21:50 White Blood Count 3.9 x10^3/uL (4.0-11.0) Red Blood Count 2.67 x10^6/uL (4.30-5.70) Hemoglobin 7.5 g/dL (13.0-17.5) Hematocrit 24.2 % (39.0-53.0) Mean Corpuscular Volume 91 fL (79-100) Mean Corpuscular Hemoglobin 28 pg (25-35) Mean Corpuscular Hemoglobin Concent 31 g/dL (31-37) Red Cell Distribution Width 18.0 % (11.5-14.5) Platelet Count 189 x10^3/uL (140-400) Neutrophils (%) (Auto) 68 % (31-73) Lymphocytes (%) (Auto) 16 % (24-48) Monocytes (%) (Auto) 14 % (0-9) Eosinophils (%) (Auto) 2 % (0-3) Basophils (%) (Auto) 1 % (0-3) Neutrophils # (Auto) 2.7 x10^3uL (1.8-7.7) Lymphocytes # (Auto) 0.6 x10^3/uL (1.0-4.8) Monocytes # (Auto) 0.5 x10^3/uL (0.0-1.1) Eosinophils # (Auto) 0.1 x10^3/uL (0.0-0.7) Basophils # (Auto) 0.0 x10^3/uL (0.0-0.2) Sodium Level 137 mmol/L (136-145) Potassium Level 3.4 mmol/L (3.5-5.1) Chloride Level 101 mmol/L (98-107) Carbon Dioxide Level 27 mmol/L (21-32) Anion Gap 9 (6-14) Blood Urea Nitrogen 14 mg/dL (8-26) Creatinine 1.0 mg/dL (0.7-1.3) Estimated GFR (Cockcroft-Gault) 73.7 BUN/Creatinine Ratio 14 (6-20) Glucose Level 91 mg/dL (70-99) Lactic Acid Level 2.1 mmol/L (0.4-2.0) Calcium Level 8.2 mg/dL (8.5-10.1) Total Bilirubin 0.4 mg/dL (0.2-1.0) Aspartate Amino Transf (AST/SGOT) 19 U/L (15-37) Alanine Aminotransferase (ALT/SGPT) 17 U/L (16-63) Alkaline Phosphatase 81 U/L (46-116) CI-Hrn-C-Type Natriuretic Peptide 4691 pg/mL (0-124) Total Protein 5.9 g/dL (6.4-8.2) Albumin 2.4 g/dL (3.4-5.0) Albumin/Globulin Ratio 0.7 (1.0-1.7) Urine Collection Type Unknown Urine Color Yellow Urine Clarity Clear Urine pH 7.5 Urine Specific [place] 1.010 Urine Protein Negative mg/dL (NEG-TRACE) Urine Glucose (UA) Negative mg/dL (NEG) Urine Ketones (Stick) Negative mg/dL (NEG) Urine Blood Negative (NEG) Urine Nitrite Negative (NEG) Urine Bilirubin Negative (NEG) Urine Urobilinogen Dipstick 0.2 mg/dL (0.2 mg/dL) Urine Leukocyte Esterase Negative (NEG) Urine RBC 0 /HPF (0-2) Urine WBC 0 /HPF (0-4) Urine Squamous Epithelial Cells Occ /LPF Urine Bacteria 0 /HPF (0-FEW) Urine Yeast Present /HPF VTE Prophylaxis Ordered VTE Prophylaxis Devices: Yes VTE Pharmacological Prophylaxi: Yes Assessment/Plan Assessment/Plan Hypotension by home health RN-resolved Hypertension now Left ankle foot wound looks clean follows with wound care Sepsis, OM?-Supposed to be in IV antibiotics for weeks, on week 2, Indwelling right PICC Overweight, BMI 35 PLAN: Check orthostatics Currently on IV meropenem every 8 hrs I'm unsure what is the IV daily 30 minute infusion he has at home by home health RN If blood pressure remains good today especially with PT OT ambulation can go home tomorrow with a right indwelling PICC and IV 30 minutes antibiotic as previously planned Cont wound care ID also consulted JAZMIN OSULLIVAN MD Jul 16, 2018 11:31
[2018-07-16] MEDS: MEROPENEM 1 GM in IV NORMAL SALINE 100ML 100 ML IV SCH ×2 (12:44→22:02)
[2018-07-16 13:02] LABS: INFLUENZA A PATIENT NEGATIVE (NEGATIVE); INFLUENZA B PATIENT NEGATIVE (NEGATIVE)
--- NOTE | 2018-07-16 16:08 | PDOC2 ---
Chief Complaint: Chief Complaint: right ankle wound Problems: (1) Surgical wound, non healing Vital Signs: Vital Signs: Vital Signs Date Time Temp Pulse Resp B/P (MAP) Pulse Ox O2 Delivery O2 Flow Rate FiO2 07/15/18 19:46 99.0 72 16 171/80 (110) 94 Room Air 99.0 Vital Signs Date Time Temp Pulse Resp B/P (MAP) Pulse Ox O2 Delivery O2 Flow Rate FiO2 07/16/18 15:22 97.4 74 20 134/68 (90) 91 Room Air 97.4 Allergies: Allergies: Allergies Coded Allergies Type Severity Reaction Last Updated Verified shellfish derived Allergy Mild makes him drowsy 06/19/18 Yes Medications: Home Meds Active Scripts Hydrocodone Bit/Acetaminophen (HYDROCODONE-APAP 7.5-325 ) 1 Tab Tablet, 1 TAB PO PRN Q4HRS PRN for PAIN MILD/MOD 1ST CHOICE MDD 1 for 10 Days, #20 TAB Prov:JAZMIN OSULLIVAN MD 06/19/18 Multivits,Ca,Minerals/Iron/Fa (THERA-M TABLET) 1 Each Tablet, 1 TAB PO DAILY for SUPPLEMENT for 30 Days, #30 TAB Prov:DUKE DE PAZ MD 05/07/18 Ergocalciferol (Vitamin D2) (VITAMIN D2) 50,000 Unit Capsule, 69545 UNIT PO Tu for ONCE A WEEK SUPPLEMENT-BONES for 7 Days, #7 CAP Prov:DUKE DE PAZ MD 05/07/18 Reported Medications Hydrocodone Bit/Acetaminophen (HYDROCODONE-APAP 7.5-325 ) 1 Tab Tablet, 1 TAB PO PRN Q4HRS PRN for PAIN, TAB 0 Refills 07/15/18 Tramadol Hcl (TRAMADOL HCL) 50 Mg Tablet, 50 MG PO PRN TID PRN for PAIN, TAB 07/15/18 Losartan/Hydrochlorothiazide (LOSARTAN-HCTZ 100-25 MG TAB) 1 Each Tablet, 1 TAB PO DAILY for htn, #30 TAB 5 Refills 05/03/18 Polyethylene Glycol 3350 (POLYETHYLENE GLYCOL 3350) 2,500 Gm Powder, 17 GM PO PRN DAILY PRN for CONSTIPATION, #255 GM 05/08/17 Ferrous Sulfate (FERROUS SULFATE) 325 Mg Tablet, 325 MG PO BID, TAB 05/08/17 Albuterol Sulfate (PROAIR HFA INHALER) 8.5 Gm Hfa.aer.ad, 2 PUFF INH PRN Q6HRS PRN for SHORTNESS OF BREATH, INHALER 0 Refills 05/07/17 Aspirin (ASPIRIN) 81 Mg Tab.chew, 81 MG PO DAILY, TAB.CHEW 05/07/17 Pain: Pain Location: Ankle (lateral right ankle) Pain Context: None (This wound is not painful) Date of Onset April 2018 Surgical Date April 2018 Wound Status: Being Treated PMH Nondiabetic. + Htn Surgical History Open repair of fractured right ankle April 2018 PSH Quit smoking 30 years ago. 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 , lives at home with his . No children Physical Exam - Wound #1 Wound Exam Location of Modifier: Right Wound Location: Lateral Body Site: Ankle Drainage Amount: Moderate Drainage Description: Yellow Odor: None/Absent Surrounding Tissue Appearance: pink Wound Description: SQ Tunneling: Present (1.9 cm) Granulation % 30% Fibrin % slough and fibrin 70% A/P Pressure ulcer which, per pt hx, started when ankle brace rubbed on the ankle. Pt was admiited earlier for infection of this ankle. He has been followed in the [facility]. The wound is open and the wound bed is only 2-3 mm deep but there is a tunnel that probes to bone, and then tunnelling that is 1.9 cm deep. I'm concerned about possible osteomyelitis and about possible abscess. He is on IV meropenem. We'll order an MRI for evaluation and f/u either here in the hospital or as outpt (pt has expressed a preference to be followed by a wound care clinic closer to his home.) Problems: (1) Open wound of right foot PATEL Right: 0.66 Problem Qualifiers (1) Open wound of right foot: Encounter type: initial encounter Qualified Codes: S91.301A - Unspecified open wound, right foot, initial encounter NYLA SHARIF MD Jul 16, 2018 16:08
--- NOTE | 2018-07-16 16:15 | NUR ---
SW following pt for anticipated dc needs. Chart reviewed and discussed with RN. Pt lives at home with spouse. PT/OT recommend HH. Pt previously has been on HH service with [facility] for IV abx. Will continue to assess dc needs.
--- NOTE | 2018-07-16 18:12 | NUR ---
Wound Care: Consult to eval and treat for multiple wounds present on admission (see wound assessments). Open incision to R lateral ankle s/p ORIF in May [address] Huston present at bedside for assessment. Cleansed and measured, deepest area measuring 1.9cm with bone palpated at 1cm. 75% slough, 25% granulation. Draining a viscous transparent, colorless, odorless fluid. Covered with saline moistened HFB, and covered with xeroform, ABD, kerlix. Wound to L dorsal hand cleansed and covered with HFB, xeroform and foam dressing. No other open areas noted on head to toe assessment. Pt spoke with Trell Alvarado RN regarding follow up in clinic and provided with contact information and pamphlet. Plan for pt to DC
[2018-07-16] MEDS: LACTOBACILLUS RHAMNOSUS GG 1 CAPSULE. PO SCH (22:02)
[2018-07-17 03:45] VITALS: BP 146/85
[2018-07-17] MEDS: MEROPENEM 1 GM in IV NORMAL SALINE 100ML 100 ML IV SCH ×3 (05:01→21:30)
[2018-07-17 05:18] LABS: BASO % 1 % (0-3); EOS # 0.1 x10^3/uL (0.0-0.7); EOS % 2 % (0-3); HEMATOCRIT 25.1 % (39.0-53.0); HEMOGLOBIN 7.7 g/dL (13.0-17.5); LYMPH # 0.6 x10^3/uL (1.0-4.8); LYMPH % 20 % (24-48); MEAN CORPUSCULAR HEMOGLOBIN 28 pg (25-35); MEAN CORPUSCULAR HGB CONC 31 g/dL (31-37); MEAN CORPUSCULAR VOLUME 90 fL (79-100); MONO # 0.4 x10^3/uL (0.0-1.1); MONO % 12 % (0-9); NEUT % 66 % (31-73); PLATELET COUNT 163 x10^3/uL (140-400); RED BLOOD COUNT 2.79 x10^6/uL (4.30-5.70); RED CELL DISTRIBUTION WIDTH 17.9 % (11.5-14.5); WHITE BLOOD COUNT 3.1 x10^3/uL (4.0-11.0)
[2018-07-17 05:38] LABS: ALBUMIN 2.2 g/dL (3.4-5.0); ALBUMIN/GLOBULIN RATIO 0.7 (1.0-1.7); CALCIUM 8.1 mg/dL (8.5-10.1); CREATININE 0.9 mg/dL (0.7-1.3); GFR 83.2; POTASSIUM 3.3 mmol/L (3.5-5.1); TOTAL BILIRUBIN 0.4 mg/dL (0.2-1.0); TOTAL PROTEIN 5.3 g/dL (6.4-8.2)
--- NOTE | 2018-07-17 06:16 | CONS ---
DATE OF CONSULTATION: 07/15/2018 REFERRING PHYSICIAN: Dr. Villafana. REASON FOR CONSULTATION: Right ankle post-surgery infection, antibiotic management. HISTORY OF PRESENT ILLNESS: A 73-year-old male who was recently discharged in May with complicated right ankle post-surgery infection, status post I and D with cultures with Enterobacter and E. faecalis, on IV ertapenem, was seen by home health and was found to have hypotension, was mildly symptomatic, advised to come to the ER. In the ER, the blood pressure was high. The patient does not have any drainage. The wound is stable, looks clean. White count was normal. The patient denies any trouble with PICC line, denies any missed doses. He says his blood pressure usually comes down a little bit after he takes his blood pressure medication and then it comes back up high again. The patient denies any fever, chills, nausea, vomiting, diarrhea, abdominal pain. Denies any right forearm pain. No PICC line issues as above. PAST MEDICAL HISTORY: Coronary artery disease, hypertension. PAST SURGICAL HISTORY: Right ankle surgery for fracture status post infection, I and D. FAMILY HISTORY: As per HPI. SOCIAL HISTORY: Denies smoking, EtOH or illicit drug use. CURRENT MEDICATION: Meropenem. Other medications in medication list. ALLERGIES: SHELLFISH. PHYSICAL EXAMINATION: VITAL SIGNS: Temperature 99, this morning is 97.8, pulse 73, respiratory rate 20, blood pressure 138/82, oxygen saturation 96% on room air. GENERAL: Alert, oriented x 3 male, in no acute distress. HEENT: Normocephalic, atraumatic, anicteric. NECK: Supple. No JVD. LUNGS: Clear bilaterally. HEART: S1, S2 regular. ABDOMEN: Benign. EXTREMITIES: No edema, no cyanosis. DERMATOLOGIC: The right lateral ankle incision with dressing in place. No purulence clean. No fluctuance. No hardware visible. CENTRAL NERVOUS SYSTEM: Alert and oriented x 3. Grossly nonfocal. MUSCULOSKELETAL: Bilateral knee replacement. Incision sites are well healed. LABORATORY DATA: WBC 3.9, hemoglobin 7.5, hematocrit 24.2, platelets 189. Sodium 137, potassium 3.4, chloride 101, bicarbonate 27, BUN 14, creatinine 1.0, glucose 91. Lactate 2.1, calcium 8.2. BNP 4691, albumin 2.4. UA negative. MICROBIOLOGY: Blood culture done, pending at this time. Chest x-ray: No acute infiltrate. IMPRESSION: 1. Lactic acidosis, etiology unclear. 2. Right ankle post-surgery infection with Enterobacter and Enterococcus faecalis, on IV Invanz, improving. 3. Right ankle fracture. 4. Coronary artery disease. 5. Hypotension with history of underlying hypertension. 6. Congestive heart failure. RECOMMENDATIONS: 1. Contiue meropenem. 2. Transition to IV ertapenem when ready for dc ,pt has tolerated it well in the past. 3. Plans are for discharge per primary team tomorrow. 4. Monitor labs in a.m. 5. Continue wound care. 6. Follow up in our clinic next week as planned. ROMA MCKEON MD DR: AZEB/travis JOB#: [id number] / [id number] SUSAN
[2018-07-17 07:15] VITALS: BP 148/87
--- NOTE | 2018-07-17 07:29 | NUR ---
MRI of right ankle ordered by Dr. Huston for patient. Patient has metal plate in right ankle and unable to complete an MRI. Notified the wound care clinic to notify Dr. Henry. Addendum: 07/17/18 at 0730 by YAW GARSIA RN Cancelled order for MRI.
[2018-07-17] MEDS: ASPIRIN CHEWABLE 81 MG TABLET. PO SCH (08:14)
[2018-07-17] MEDS: FERROUS SULFATE 325 MG TABLET. PO SCH ×2 (08:14→20:34)
[2018-07-17] MEDS: LOSARTAN POTASSIUM 50 MG TABLET. PO SCH (08:14)
[2018-07-17] MEDS: LACTOBACILLUS RHAMNOSUS GG 1 CAPSULE. PO SCH ×2 (08:14→20:35)
[2018-07-17] MEDS: MULTIVITAMIN with MINERAL TABLET. PO SCH (08:14)
[2018-07-17] MEDS: hydroCHLOROthiazide 25 MG TABLET PO SCH (08:14)
[2018-07-17] MEDS ORDERED: MULTIVITAMIN with MINERAL TABLET. PO SCH (09:00)
[2018-07-17] MEDS ORDERED: POLYETHYLENE GLYCOL 3350 17 GM PACKET. PO PRN (09:00)
[2018-07-17] MEDS ORDERED: POTASSIUM CHLORIDE 20 MEQ TABLET.ER. PO ONE (10:00)
--- NOTE | 2018-07-17 10:22 | PDOC ---
PROGRESS NOTES Chief Complaint Chief Complaint Hypotension by home health RN-resolved Hypertension now Left ankle foot wound looks clean follows with wound care Sepsis, OM?-Supposed to be in IV antibiotics for weeks, on week 2, Indwelling right PICC Overweight, BMI 35 History of Present Illness History of Present Illness Patient has no complaints No more hypotension Blood pressure actually on the high side 146 systolic No PT needs Has right indwelling PICC-was getting IV daily antibiotic infusion at home by current home health Wound care note reviewed, concerns about osteomyelitis Patient cannot have MRI of the ankle because of metal plates there Plan for bone scan today Plan: follow-up bone scan today If negative candidate for going home later with indwelling PICC and IV antibiotic infusion via current home health If MRI is abnormal we will keep the patient Vitals Vitals Vital Signs Date Time Temp Pulse Resp B/P (MAP) Pulse Ox O2 Delivery O2 Flow Rate FiO2 07/17/18 09:00 Room Air 07/17/18 08:14 88 148/87 07/17/18 07:15 98.7 18 96 98.7 Physical Exam General: Alert, Oriented X3, Cooperative, No acute distress Lungs: Clear Abdomen: Normal bowel sounds, Soft, No tenderness, No hepatosplenomegaly, No masses Skin: Other (left ankle/foot wound looks amazingly good, swelling of the ankle , some skin abrasion over there) Labs LABS Laboratory Tests Test 07/16/18 12:00 07/17/18 05:00 Influenza Type A Antigen Negative (NEGATIVE) Influenza Type B Antigen Negative (NEGATIVE) White Blood Count 3.1 x10^3/uL (4.0-11.0) Red Blood Count 2.79 x10^6/uL (4.30-5.70) Hemoglobin 7.7 g/dL (13.0-17.5) Hematocrit 25.1 % (39.0-53.0) Mean Corpuscular Volume 90 fL (79-100) Mean Corpuscular Hemoglobin 28 pg (25-35) Mean Corpuscular Hemoglobin Concent 31 g/dL (31-37) Red Cell Distribution Width 17.9 % (11.5-14.5) Platelet Count 163 x10^3/uL (140-400) Neutrophils (%) (Auto) 66 % (31-73) Lymphocytes (%) (Auto) 20 % (24-48) Monocytes (%) (Auto) 12 % (0-9) Eosinophils (%) (Auto) 2 % (0-3) Basophils (%) (Auto) 1 % (0-3) Neutrophils # (Auto) 2.0 x10^3uL (1.8-7.7) Lymphocytes # (Auto) 0.6 x10^3/uL (1.0-4.8) Monocytes # (Auto) 0.4 x10^3/uL (0.0-1.1) Eosinophils # (Auto) 0.1 x10^3/uL (0.0-0.7) Basophils # (Auto) 0.0 x10^3/uL (0.0-0.2) Sodium Level 142 mmol/L (136-145) Potassium Level 3.3 mmol/L (3.5-5.1) Chloride Level 105 mmol/L (98-107) Carbon Dioxide Level 27 mmol/L (21-32) Anion Gap 10 (6-14) Blood Urea Nitrogen 10 mg/dL (8-26) Creatinine 0.9 mg/dL (0.7-1.3) Estimated GFR (Cockcroft-Gault) 83.2 BUN/Creatinine Ratio 11 (6-20) Glucose Level 101 mg/dL (70-99) Lactic Acid Level 0.8 mmol/L (0.4-2.0) Calcium Level 8.1 mg/dL (8.5-10.1) Total Bilirubin 0.4 mg/dL (0.2-1.0) Aspartate Amino Transf (AST/SGOT) 16 U/L (15-37) Alanine Aminotransferase (ALT/SGPT) 16 U/L (16-63) Alkaline Phosphatase 73 U/L (46-116) Total Protein 5.3 g/dL (6.4-8.2) Albumin 2.2 g/dL (3.4-5.0) Albumin/Globulin Ratio 0.7 (1.0-1.7) Review of Systems Review of Systems A 14 point ROS was completed with the following noted as positive: Other systems reviewed and negative. \CONSTITUTIONAL: No fever or chills EYES: No recent changes SKIN: No rash or itching CARDIOVASCULAR: No chest pain, syncope, palpitations, or edema RESPIRATORY: No SOB or cough GASTROINTESTINAL: No nausea, vomiting or abdominal pain NEUROLOGICAL: No headaches or weakness ENDOCRINE: No cold or heat intolerance GENITOURINARY: No urgency or frequency of urination MUSCULOSKELETAL: No back pain or joint pain LYMPHATICS: No enlarged lymph nodes PSYCHIATRIC: No anxiety or depression Assessment and Plan Assessmemt and Plan Problems Medical Problems: (1) Cellulitis Status: Acute (2) CHF (congestive heart failure) Status: Acute (3) Elevated lactic acid level Status: Acute Comment Review of Relevant I have reviewed the following items carl (where applicable) has been applied. Labs Laboratory Tests Test 07/15/18 20:30 07/15/18 21:50 07/16/18 12:00 07/17/18 05:00 White Blood Count 3.9 x10^3/uL (4.0-11.0) 3.1 x10^3/uL (4.0-11.0) Red Blood Count 2.67 x10^6/uL (4.30-5.70) 2.79 x10^6/uL (4.30-5.70) Hemoglobin 7.5 g/dL (13.0-17.5) 7.7 g/dL (13.0-17.5) Hematocrit 24.2 % (39.0-53.0) 25.1 % (39.0-53.0) Mean Corpuscular Volume 91 fL (79-100) 90 fL (79-100) Mean Corpuscular Hemoglobin 28 pg (25-35) 28 pg (25-35) Mean Corpuscular Hemoglobin Concent 31 g/dL (31-37) 31 g/dL (31-37) Red Cell Distribution Width 18.0 % (11.5-14.5) 17.9 % (11.5-14.5) Platelet Count 189 x10^3/uL (140-400) 163 x10^3/uL (140-400) Neutrophils (%) (Auto) 68 % (31-73) 66 % (31-73) Lymphocytes (%) (Auto) 16 % (24-48) 20 % (24-48) Monocytes (%) (Auto) 14 % (0-9) 12 % (0-9) Eosinophils (%) (Auto) 2 % (0-3) 2 % (0-3) Basophils (%) (Auto) 1 % (0-3) 1 % (0-3) Neutrophils # (Auto) 2.7 x10^3uL (1.8-7.7) 2.0 x10^3uL (1.8-7.7) Lymphocytes # (Auto) 0.6 x10^3/uL (1.0-4.8) 0.6 x10^3/uL (1.0-4.8) Monocytes # (Auto) 0.5 x10^3/uL (0.0-1.1) 0.4 x10^3/uL (0.0-1.1) Eosinophils # (Auto) 0.1 x10^3/uL (0.0-0.7) 0.1 x10^3/uL (0.0-0.7) Basophils # (Auto) 0.0 x10^3/uL (0.0-0.2) 0.0 x10^3/uL (0.0-0.2) Sodium Level 137 mmol/L (136-145) 142 mmol/L (136-145) Potassium Level 3.4 mmol/L (3.5-5.1) 3.3 mmol/L (3.5-5.1) Chloride Level 101 mmol/L (98-107) 105 mmol/L (98-107) Carbon Dioxide Level 27 mmol/L (21-32) 27 mmol/L (21-32) Anion Gap 9 (6-14) 10 (6-14) Blood Urea Nitrogen 14 mg/dL (8-26) 10 mg/dL (8-26) Creatinine 1.0 mg/dL (0.7-1.3) 0.9 mg/dL (0.7-1.3) Estimated GFR (Cockcroft-Gault) 73.7 83.2 BUN/Creatinine Ratio 14 (6-20) 11 (6-20) Glucose Level 91 mg/dL (70-99) 101 mg/dL (70-99) Lactic Acid Level 2.1 mmol/L (0.4-2.0) 0.8 mmol/L (0.4-2.0) Calcium Level 8.2 mg/dL (8.5-10.1) 8.1 mg/dL (8.5-10.1) Total Bilirubin 0.4 mg/dL (0.2-1.0) 0.4 mg/dL (0.2-1.0) Aspartate Amino Transf (AST/SGOT) 19 U/L (15-37) 16 U/L (15-37) Alanine Aminotransferase (ALT/SGPT) 17 U/L (16-63) 16 U/L (16-63) Alkaline Phosphatase 81 U/L (46-116) 73 U/L (46-116) ZZ-Ysb-O-Type Natriuretic Peptide 4691 pg/mL (0-124) Total Protein 5.9 g/dL (6.4-8.2) 5.3 g/dL (6.4-8.2) Albumin 2.4 g/dL (3.4-5.0) 2.2 g/dL (3.4-5.0) Albumin/Globulin Ratio 0.7 (1.0-1.7) 0.7 (1.0-1.7) Urine Collection Type Unknown Urine Color Yellow Urine Clarity Clear Urine pH 7.5 Urine Specific [place] 1.010 Urine Protein Negative mg/dL (NEG-TRACE) Urine Glucose (UA) Negative mg/dL (NEG) Urine Ketones (Stick) Negative mg/dL (NEG) Urine Blood Negative (NEG) Urine Nitrite Negative (NEG) Urine Bilirubin Negative (NEG) Urine Urobilinogen Dipstick 0.2 mg/dL (0.2 mg/dL) Urine Leukocyte Esterase Negative (NEG) Urine RBC 0 /HPF (0-2) Urine WBC 0 /HPF (0-4) Urine Squamous Epithelial Cells Occ /LPF Urine Bacteria 0 /HPF (0-FEW) Urine Yeast Present /HPF Influenza Type A Antigen Negative (NEGATIVE) Influenza Type B Antigen Negative (NEGATIVE) Laboratory Tests Test 07/16/18 12:00 07/17/18 05:00 Influenza Type A Antigen Negative (NEGATIVE) Influenza Type B Antigen Negative (NEGATIVE) White Blood Count 3.1 x10^3/uL (4.0-11.0) Red Blood Count 2.79 x10^6/uL (4.30-5.70) Hemoglobin 7.7 g/dL (13.0-17.5) Hematocrit 25.1 % (39.0-53.0) Mean Corpuscular Volume 90 fL (79-100) Mean Corpuscular Hemoglobin 28 pg (25-35) Mean Corpuscular Hemoglobin Concent 31 g/dL (31-37) Red Cell Distribution Width 17.9 % (11.5-14.5) Platelet Count 163 x10^3/uL (140-400) Neutrophils (%) (Auto) 66 % (31-73) Lymphocytes (%) (Auto) 20 % (24-48) Monocytes (%) (Auto) 12 % (0-9) Eosinophils (%) (Auto) 2 % (0-3) Basophils (%) (Auto) 1 % (0-3) Neutrophils # (Auto) 2.0 x10^3uL (1.8-7.7) Lymphocytes # (Auto) 0.6 x10^3/uL (1.0-4.8) Monocytes # (Auto) 0.4 x10^3/uL (0.0-1.1) Eosinophils # (Auto) 0.1 x10^3/uL (0.0-0.7) Basophils # (Auto) 0.0 x10^3/uL (0.0-0.2) Sodium Level 142 mmol/L (136-145) Potassium Level 3.3 mmol/L (3.5-5.1) Chloride Level 105 mmol/L (98-107) Carbon Dioxide Level 27 mmol/L (21-32) Anion Gap 10 (6-14) Blood Urea Nitrogen 10 mg/dL (8-26) Creatinine 0.9 mg/dL (0.7-1.3) Estimated GFR (Cockcroft-Gault) 83.2 BUN/Creatinine Ratio 11 (6-20) Glucose Level 101 mg/dL (70-99) Lactic Acid Level 0.8 mmol/L (0.4-2.0) Calcium Level 8.1 mg/dL (8.5-10.1) Total Bilirubin 0.4 mg/dL (0.2-1.0) Aspartate Amino Transf (AST/SGOT) 16 U/L (15-37) Alanine Aminotransferase (ALT/SGPT) 16 U/L (16-63) Alkaline Phosphatase 73 U/L (46-116) Total Protein 5.3 g/dL (6.4-8.2) Albumin 2.2 g/dL (3.4-5.0) Albumin/Globulin Ratio 0.7 (1.0-1.7) Microbiology 07/15/18 Blood Culture - Preliminary, Resulted NO GROWTH AFTER 1 DAY Medications Current Medications Albuterol Sulfate (Ventolin Neb Soln) 2.5 mg 1X ONCE NEB Last administered on 07/15/18at 20:26; Start 07/15/18 at 20:30; Stop 07/15/18 at 20:31; Status DC Potassium Chloride (Klor-Con) 40 meq 1X ONCE PO Last administered on at 21:34; Start 07/15/18 at 21:15; Stop 07/15/18 at 21:16; Status DC Meropenem 1 gm/ Sodium Chloride 100 ml @ 200 mls/hr Q8HRS IV Last administered on 07/16/18at 05:37; Start 07/16/18 at 06:00; Stop 07/16/18 at 11:53 ; Status DC Ondansetron HCl (Zofran) 4 mg PRN Q8HRS PRN IV NAUSEA/VOMITING; Start 07/15/18 at 21:45; Stop 07/16/18 at 08:59; Status DC Fentanyl Citrate (Fentanyl 2ml Vial) 50 mcg PRN Q1HR PRN IV PAIN Last administered on 07/16/18at 02:40; Start 07/15/18 at 21:45; Stop 07/16/18 at 21:44 ; Status DC Sodium Chloride 1,000 ml @ 75 mls/hr [id number] IV Last administered on at 09:41; Start 07/15/18 at 21:31; Stop 07/16/18 at 21:30; Status DC Albuterol/ Ipratropium (Duoneb) 3 ml RTQID NEB Last administered on 07/16/18at 21:10; Start 07/16/18 at 08:00; Stop 07/17/18 at 07:59; Status DC Meropenem 1 gm/ Sodium Chloride 100 ml @ 200 mls/hr Q8HRS IV ; Start 07/15/18 at 22:00; Stop 07/15/18 at 22:00; Status DC Meropenem 1 gm/ Sodium Chloride 100 ml @ 200 mls/hr ONCE ONCE IV Last administered on 07/15/18at 21:52; Start 07/15/18 at 22:00; Stop 07/15/18 at 22:29 ; Status DC Ondansetron HCl (Zofran) 4 mg PRN Q6HRS PRN IV NAUSEA/VOMITING; Start 07/16/18 at 09:00 Albuterol Sulfate (Ventolin Neb Soln) 2.5 mg PRN Q6HRS PRN INH SHORTNESS OF BREATH; Start 07/16/18 at 09:00 Aspirin (Children'S Aspirin) 81 mg DAILY PO Last administered on 07/17/18 08: 14; Start 07/16/18 at 10:00 Ergocalciferol (Vitamin D2) 50,000 unit Tu PO ; Start 07/22/18 at 09:00 Ferrous Sulfate (Feosol) 325 mg BID PO Last administered on 07/17/18 08:14; Start 07/16/18 at 10:00 Acetaminophen/ Hydrocodone Bitart (Lortab 7.5/325) 1 tab PRN Q4HRS PRN PO MODERATE PAIN Last administered on 07/16/18 22:02; Start 07/16/18 at 09:00 Acetaminophen/ Hydrocodone Bitart (Lortab 7.5/325) 1 tab PRN Q4HRS PRN PO PAIN ; Start 07/16/18 at 09:00; Status UNV Multivitamins (Thera M Plus) 1 tab DAILY PO Last administered on 07/17/18 08: 14; Start 07/16/18 at 10:00 Tramadol HCl (Ultram) 50 mg PRN TID PRN PO MILD PAIN; Start 07/16/18 at 09:00 Non-Formulary Medication (Losartan/ Hydrochlorothiazide (Losartan-Hctz 100-25 Mg Tab)) 1 tab DAILY PO ; Start 07/16/18 at 09:00; Status UNV Polyethylene Glycol (miraLAX PACKET) 17 gm PRN DAILY PRN PO CONSTIPATION; Start 07/17/18 at 09:00 Losartan Potassium (Cozaar) 100 mg DAILY PO Last administered on 07/17/18 08: 14; Start 07/16/18 at 10:00 Hydrochlorothiazide (Hydrodiuril) 25 mg DAILY PO Last administered on 08:14; Start 07/16/18 at 10:00 Meropenem 1 gm/ Sodium Chloride 100 ml @ 200 mls/hr Q8HRS IV Last administered on 07/17/18 05:01; Start 07/16/18 at 14:00 Multivitamins (Thera M Plus) 1 tab DAILY PO ; Start 07/17/18 at 09:00; Status UNV Lactobacillus Rhamnosus (Culturelle) 1 cap BID PO Last administered on at 08:14; Start 07/16/18 at 21:00 Potassium Chloride (Klor-Con) 40 meq 1X ONCE PO Last administered on at 09:25; Start 07/17/18 at 10:00; Stop 07/17/18 at 10:01; Status DC Active Scripts Active Hydrocodone-Apap 7.5-325 (Hydrocodone Bit/Acetaminophen) 1 Tab Tablet 1 Tab PO PRN Q4HRS PRN MDD 1 10 Days Thera-M Tablet (Multivits,Ca,Minerals/Iron/Fa) 1 Each Tablet 1 Tab PO DAILY 30 Days Vitamin D2 (Ergocalciferol (Vitamin D2)) 50,000 Unit Capsule 50,000 Unit PO TU 7 Days Reported Hydrocodone-Apap 7.5-325 (Hydrocodone Bit/Acetaminophen) 1 Tab Tablet 1 Tab PO PRN Q4HRS PRN Tramadol Hcl 50 Mg Tablet 50 Mg PO PRN TID PRN Losartan-Hctz 100-25 Mg Tab (Losartan/Hydrochlorothiazide) 1 Each Tablet 1 Tab PO DAILY Polyethylene Glycol 3350 2,500 Gm Powder 17 Gm PO PRN DAILY PRN Ferrous Sulfate 325 Mg Tablet 325 Mg PO BID Proair Hfa Inhaler (Albuterol Sulfate) 8.5 Gm Hfa.aer.ad 2 Puff INH PRN Q6HRS PRN Aspirin 81 Mg Tab.chew 81 Mg PO DAILY Vitals/I & O Vital Sign - Last 24 Hours 07/16/18 07/16/18 07/16/18 07/16/18 11:20 11:47 11:48 11:48 Temp 97.8 97.8 Pulse 73 70 73 90 Resp 20 B/P (MAP) 138/82 (100) 137/77 (97) 141/75 (97) 148/75 (99) Pulse Ox 96 O2 Delivery Room Air 07/16/18 07/16/18 07/16/18 07/16/18 13:32 15:22 19:52 21:13 Temp 97.4 97.7 97.4 97.7 Pulse 74 77 Resp 20 20 B/P (MAP) 134/68 (90) 145/82 (103) Pulse Ox 91 94 94 O2 Delivery Room Air Room Air Room Air Room Air 07/16/18 07/16/18 07/16/18 07/17/18 22:02 23:02 23:55 03:45 Temp 97.6 97.6 97.6 97.6 Pulse 74 76 Resp 16 16 B/P (MAP) 155/83 (107) 146/85 (105) Pulse Ox 93 94 O2 Delivery Room Air Room Air Room Air Room Air 07/17/18 07/17/18 07/17/18 07/17/18 07:15 07:26 08:14 09:00 Temp 98.7 98.7 Pulse 88 88 Resp 18 B/P (MAP) 148/87 (107) 148/87 Pulse Ox 96 O2 Delivery Room Air Room Air Room Air Intake and Output 07/16/18 07/16/18 07/17/18 15:00 23:00 07:00 Intake Total 300 ml 540 ml Output Total 2 ml 2 ml Balance 300 ml 538 ml -2 ml JAZMIN OSULLIVAN MD Jul 17, 2018 10:22
[2018-07-17 11:00] VITALS: BP 150/83
--- NOTE | 2018-07-17 11:20 | PDOC ---
Infectious Disease Note Subjective: Subjective Pt says feels much better no f/c/n/v/d ROS: ROS Negative except for above. Vital Signs: Vital Signs Vital Signs Date Time Temp Pulse Resp B/P (MAP) Pulse Ox O2 Delivery O2 Flow Rate FiO2 07/17/18 11:00 98.7 84 20 150/83 (105) 95 Room Air 98.7 Physical Exam: PHYSICAL EXAM GENERAL: Alert, oriented x 3 male, in no acute distress. HEENT: Normocephalic, atraumatic, anicteric. NECK: Supple. No JVD. LUNGS: Clear bilaterally. HEART: S1, S2 regular. ABDOMEN: Benign. EXTREMITIES: No edema, no cyanosis. DERMATOLOGIC: The right lateral ankle incision with dressing in place. No purulence clean. No fluctuance. No hardware visible. CENTRAL NERVOUS SYSTEM: Alert and oriented x 3. Grossly nonfocal. MUSCULOSKELETAL: Bilateral knee replacement. Incision sites are well healed. Medications: Inpatient Meds: Current Medications Medications (Trade) Dose Ordered Sig/Liseth Start Time Stop Time Status Last Admin Dose Admin Acetaminophen/ Hydrocodone Bitart (Lortab 7.5/325) 1 tab PRN Q4HRS PRN 07/16/18 09:00 UNV Albuterol Sulfate (Ventolin Neb Soln) 2.5 mg PRN Q6HRS PRN 07/16/18 09:00 Albuterol/ Ipratropium (Duoneb) 3 ml RTQID 07/16/18 08:00 07/17/18 07:59 DC 07/16/18 21:10 3 ML Aspirin (Children'S Aspirin) 81 mg DAILY 07/16/18 10:00 07/17/18 08:14 81 MG Ergocalciferol (Vitamin D2) 50,000 unit Tu 07/22/18 09:00 Fentanyl Citrate (Fentanyl 2ml Vial) 50 mcg PRN Q1HR PRN 07/15/18 21:45 07/16/18 21:44 DC 07/16/18 02:40 50 MCG Ferrous Sulfate (Feosol) 325 mg BID 07/16/18 10:00 07/17/18 08:14 325 MG Hydrochlorothiazide (Hydrodiuril) 25 mg DAILY 07/16/18 10:00 07/17/18 08:14 25 MG Lactobacillus Rhamnosus (Culturelle) 1 cap BID 07/16/18 21:00 07/17/18 08:14 1 CAP Losartan Potassium (Cozaar) 100 mg DAILY 07/16/18 10:00 07/17/18 08:14 100 MG Meropenem 1 gm/ Sodium Chloride 100 ml @ 200 mls/hr Q8HRS 07/16/18 14:00 07/17/18 05:01 200 MLS/HR Multivitamins (Thera M Plus) 1 tab DAILY 07/17/18 09:00 UNV Non-Formulary Medication (Losartan/ Hydrochlorothiazide (Losartan-Hctz 100-25 Mg Tab)) 1 tab DAILY 07/16/18 09:00 UNV Ondansetron HCl (Zofran) 4 mg PRN Q6HRS PRN 07/16/18 09:00 Polyethylene Glycol (miraLAX PACKET) 17 gm PRN DAILY PRN 07/17/18 09:00 Potassium Chloride (Klor-Con) 40 meq 1X ONCE 07/17/18 10:00 07/17/18 10:01 DC 07/17/18 09:25 40 MEQ Sodium Chloride 1,000 ml @ 75 mls/hr [id number] 07/15/18 21:31 07/16/18 21:30 DC 07/16/18 09:41 75 MLS/HR Tramadol HCl (Ultram) 50 mg PRN TID PRN 07/16/18 09:00 Labs: Lab Laboratory Tests Test 07/16/18 12:00 07/17/18 05:00 07/17/18 09:00 Influenza Type A Antigen Negative (NEGATIVE) Influenza Type B Antigen Negative (NEGATIVE) White Blood Count 3.1 x10^3/uL (4.0-11.0) Red Blood Count 2.79 x10^6/uL (4.30-5.70) Hemoglobin 7.7 g/dL (13.0-17.5) Hematocrit 25.1 % (39.0-53.0) Mean Corpuscular Volume 90 fL (79-100) Mean Corpuscular Hemoglobin 28 pg (25-35) Mean Corpuscular Hemoglobin Concent 31 g/dL (31-37) Red Cell Distribution Width 17.9 % (11.5-14.5) Platelet Count 163 x10^3/uL (140-400) Neutrophils (%) (Auto) 66 % (31-73) Lymphocytes (%) (Auto) 20 % (24-48) Monocytes (%) (Auto) 12 % (0-9) Eosinophils (%) (Auto) 2 % (0-3) Basophils (%) (Auto) 1 % (0-3) Neutrophils # (Auto) 2.0 x10^3uL (1.8-7.7) Lymphocytes # (Auto) 0.6 x10^3/uL (1.0-4.8) Monocytes # (Auto) 0.4 x10^3/uL (0.0-1.1) Eosinophils # (Auto) 0.1 x10^3/uL (0.0-0.7) Basophils # (Auto) 0.0 x10^3/uL (0.0-0.2) Sodium Level 142 mmol/L (136-145) Potassium Level 3.3 mmol/L (3.5-5.1) Chloride Level 105 mmol/L (98-107) Carbon Dioxide Level 27 mmol/L (21-32) Anion Gap 10 (6-14) Blood Urea Nitrogen 10 mg/dL (8-26) Creatinine 0.9 mg/dL (0.7-1.3) Estimated GFR (Cockcroft-Gault) 83.2 BUN/Creatinine Ratio 11 (6-20) Glucose Level 101 mg/dL (70-99) Lactic Acid Level 0.8 mmol/L (0.4-2.0) Calcium Level 8.1 mg/dL (8.5-10.1) Total Bilirubin 0.4 mg/dL (0.2-1.0) Aspartate Amino Transf (AST/SGOT) 16 U/L (15-37) Alanine Aminotransferase (ALT/SGPT) 16 U/L (16-63) Alkaline Phosphatase 73 U/L (46-116) Total Protein 5.3 g/dL (6.4-8.2) Albumin 2.2 g/dL (3.4-5.0) Albumin/Globulin Ratio 0.7 (1.0-1.7) Erythrocyte Sedimentation Rate 20 (0-15) Objective: Assessment: 1. Lactic acidosis, etiology unclear. 2. Right ankle post-surgery infection with Enterobacter and Enterococcus faecalis, on IV Invanz, improving. 3. Right ankle fracture. 4. Coronary artery disease. 5. Hypotension with history of underlying hypertension. 6. Congestive heart failure. Plan: Plan of Care cont merrem transition to ertapenem when ready for dc home,pt says got shipment from infusion pharmacy yesterday weekly labs cbc/bun/creat/esr/ awaiting bone scan but will be nonspecific as pt had recent surgery Continue wound care. Follow up in our clinic next week as planned. D/W ROMA CRAWFORD MD Jul 17, 2018 11:20
--- NOTE | 2018-07-17 13:35 | NUR ---
SAMANTHA following pt. SAMANTHA phoned and faxed clinicals and Rx for IV abx to [facility]. Will continue to follow.
[2018-07-17 15:13] VITALS: BP 155/75
--- NOTE | 2018-07-17 15:33 | RAD ---
BONE SCAN 3 PHASE Clinical Indication: Right ankle non healing ulcer lateral side for 3 months ever since patient fractured it and had surgery on it. Comparison: Right ankle radiographs 06/16/2018 and dating back to May 03, 2018. TECHNIQUE: Patient is injected with 22 mCi of technetium 99m MDP. Anterior and posterior angiographic phase images of the ankles acquired. Anterior and posterior immediate static images obtained. After routine delay, anterior, posterior, right and left lateral static images of the ankles obtained. Findings: On angiographic phase images, there is hyperemia of the right ankle. There is increased tracer uptake of the lateral right ankle in the region of the internal fixation hardware of the fibula and in the medial ankle at the level of the malleolus. Technologist notes that the patient had a difficult time holding still for delay images which were attempted 3 times. There is increased tracer uptake of the lateral right ankle that appears to localize to the distal fibula in the region of the hardware and in the distal tibia probably at the level of the screws. IMPRESSION: Overall findings are indeterminant. Increased tracer uptake on the delay images in the region of the hardware is expected given the time since surgery. The angiographic and immediate static images are also positive. If there is suspicion for infection, a tagged leukocyte scan and a sulfur colloid (bone marrow) scan would improve specificity. Electronically signed by: Brad Schrader MD (07/17/2018 3:30 PM) [id number]
[2018-07-17] MEDS: HYDROcodone/APAP 7.5/325MG 1 TAB TABLET PO PRN ×2 (15:48→20:35)
[2018-07-17 19:30] VITALS: BP 157/89
[2018-07-17] MEDS: traMADol 50 MG TABLET PO PRN (21:29)
[2018-07-17 23:30] VITALS: BP 172/83
[2018-07-18] MEDS: HYDROcodone/APAP 7.5/325MG 1 TAB TABLET PO PRN ×3 (00:42→21:15)
[2018-07-18 03:30] VITALS: BP 168/84
[2018-07-18] MEDS: MEROPENEM 1 GM in IV NORMAL SALINE 100ML 100 ML IV SCH ×2 (04:40→13:25)
[2018-07-18] MEDS: traMADol 50 MG TABLET PO PRN (06:00)
[2018-07-18 07:35] VITALS: BP 164/65
[2018-07-18] MEDS: hydroCHLOROthiazide 25 MG TABLET PO SCH (07:52)
[2018-07-18] MEDS: ASPIRIN CHEWABLE 81 MG TABLET. PO SCH (07:53)
[2018-07-18] MEDS: MULTIVITAMIN with MINERAL TABLET. PO SCH (07:53)
[2018-07-18] MEDS: FERROUS SULFATE 325 MG TABLET. PO SCH ×2 (07:53→21:11)
[2018-07-18] MEDS: LACTOBACILLUS RHAMNOSUS GG 1 CAPSULE. PO SCH ×2 (07:53→21:11)
[2018-07-18] MEDS: LOSARTAN POTASSIUM 50 MG TABLET. PO SCH (07:53)
--- NOTE | 2018-07-18 09:20 | SNU/HH DC ---
DISCHARGE WITH HOME HEALTH DISCHARGE INFORMATION: Discharge Date: Jul 18, 2018 Final Diagnosis: Problems Medical Problems: (1) Cellulitis Status: Acute (2) CHF (congestive heart failure) Status: Acute (3) Elevated lactic acid level Status: Acute Condition on Discharge: Stable CODE STATUS: Code Status: Full HOME HEALTH: Face to Face: I certify this patient is under my care and that I, or a nurse practitioner or physician's credentialing assistant working with me, had a face to face encounter that meets the physician face to face encounter requirements with this patient on []. Medical Complications: S/P Joint Replacement Physical Therapy For: Evalulation/Treatment Occupational Therapy For: Evaluation/Treatment Speech Language Pathology For: Evaluation/Treatment Home Health Aide For: Self-care JIG WORKER For: Community Resources Pt Meets Homebound Status: Unsteady balance w/ amb, POST DISCHARGE ORDERS: Activity Instructions for Disc: Activity as tolerated Weight Bearing Status after Di: Touch down weight bearing DIET AFTER DISCHARGE: Cardiac Wound/Incision Care: Keep wound/cast CDI, Keep wound elevated, Reinforce dressing PRN CHECKS AFTER DISCHARGE: Checks after discharge: Check blood press - daily FOLLOW-UP: Follow up with: SHANNEN Kimble 4 weeks or after completion IV abx TREATMENT/EQUIPMENT ORDERS: Adaptive Equipment Issued: Brace/splint CERTIFICATION STATEMENT: Certification Statement: Certification Statement: Based on the above finding, I certify that this patient is confined to the home and needs intermittent correction care, physical therapy and/or speech therapy, or continues to need occupational therapy.~ This patient is under my care, and I have initiated the establishment of the plan of care.~ This patient will be followed by myself or a community physician who will periodically review the plan of care. Home Meds Active Scripts Hydrocodone Bit/Acetaminophen (HYDROCODONE-APAP 7.5-325 ) 1 Tab Tablet, 1 TAB PO PRN Q4HRS PRN for PAIN MILD/MOD 1ST CHOICE MDD 1 for 10 Days, #20 TAB Prov:JAZMIN OSULLIVAN MD 06/19/18 Multivits,Ca,Minerals/Iron/Fa (THERA-M TABLET) 1 Each Tablet, 1 TAB PO DAILY for SUPPLEMENT for 30 Days, #30 TAB Prov:DUKE DE PAZ MD 05/07/18 Ergocalciferol (Vitamin D2) (VITAMIN D2) 50,000 Unit Capsule, 66385 UNIT PO Tu for ONCE A WEEK SUPPLEMENT-BONES for 7 Days, #7 CAP Prov:DUKE DE PAZ MD 05/07/18 Reported Medications Hydrocodone Bit/Acetaminophen (HYDROCODONE-APAP 7.5-325 ) 1 Tab Tablet, 1 TAB PO PRN Q4HRS PRN for PAIN, TAB 0 Refills 07/15/18 Tramadol Hcl (TRAMADOL HCL) 50 Mg Tablet, 50 MG PO PRN TID PRN for PAIN, TAB 07/15/18 Losartan/Hydrochlorothiazide (LOSARTAN-HCTZ 100-25 MG TAB) 1 Each Tablet, 1 TAB PO DAILY for htn, #30 TAB 5 Refills 05/03/18 Polyethylene Glycol 3350 (POLYETHYLENE GLYCOL 3350) 2,500 Gm Powder, 17 GM PO PRN DAILY PRN for CONSTIPATION, #255 GM 05/08/17 Ferrous Sulfate (FERROUS SULFATE) 325 Mg Tablet, 325 MG PO BID, TAB 05/08/17 Albuterol Sulfate (PROAIR HFA INHALER) 8.5 Gm Hfa.aer.ad, 2 PUFF INH PRN Q6HRS PRN for SHORTNESS OF BREATH, INHALER 0 Refills 05/07/17 Aspirin (ASPIRIN) 81 Mg Tab.chew, 81 MG PO DAILY, TAB.CHEW 05/07/17 JAZMIN OSULLIVAN MD Jul 18, 2018 09:20
[2018-07-18 11:00] VITALS: BP 150/70
--- NOTE | 2018-07-18 11:00 | PDOC ---
PROGRESS NOTES Chief Complaint Chief Complaint Hypotension by home health RN-resolved Hypertension now Left ankle foot wound looks clean follows with wound care Sepsis, OM?-Supposed to be in IV antibiotics for weeks, on week 2, Indwelling right PICC Overweight, BMI 35 History of Present Illness History of Present Illness Patient has no complaints No more hypotension Blood pressure actually on the high side 146 systolic No PT needs Has right indwelling PICC-was getting IV ertapenem at [facility] Wound care note reviewed, concerns about osteomyelitis - might consult ortho today BOne scan: Overall findings are indeterminant. Increased tracer uptake on the delay images in the region of the hardware is expected given the time since surgery. The angiographic and immediate static images are also positive. If there is suspicion for infection, a tagged leukocyte scan and a sulfur colloid (bone marrow) scan would improve specificity. Patient cannot have MRI of the ankle because of metal plates there I did Inspect the wound myself, dressing is somewhat wet - needs changing Plan: wound Care will see the patient later today - pending that might need Ortho He has right indwelling PICC IV ertapenem on discharge with current home health So far no PT needs Discussed with RN Dinorah Vitals Vitals Vital Signs Date Time Temp Pulse Resp B/P (MAP) Pulse Ox O2 Delivery O2 Flow Rate FiO2 07/18/18 07:53 82 164/65 07/18/18 07:35 97.8 20 94 Room Air 97.8 Physical Exam Physical Exam GENERAL: Alert, oriented x 3 male, in no acute distress. HEENT: Normocephalic, atraumatic, anicteric. NECK: Supple. No JVD. LUNGS: Clear bilaterally. HEART: S1, S2 regular. ABDOMEN: Benign. EXTREMITIES: No edema, no cyanosis. DERMATOLOGIC: The right lateral ankle incision with dressing in place. No purulence clean. No fluctuance. No hardware visible. CENTRAL NERVOUS SYSTEM: Alert and oriented x 3. Grossly nonfocal. MUSCULOSKELETAL: Bilateral knee replacement. Incision sites are well healed. General: Alert, Oriented X3, Cooperative, No acute distress Lungs: Clear Abdomen: Normal bowel sounds, Soft, No tenderness, No hepatosplenomegaly, No masses Skin: Other (left ankle/foot wound looks amazingly good, swelling of the ankle , some skin abrasion over there) Review of Systems Review of Systems A 14 point ROS was completed with the following noted as positive: Other systems reviewed and negative. \CONSTITUTIONAL: No fever or chills EYES: No recent changes SKIN: No rash or itching CARDIOVASCULAR: No chest pain, syncope, palpitations, or edema RESPIRATORY: No SOB or cough GASTROINTESTINAL: No nausea, vomiting or abdominal pain NEUROLOGICAL: No headaches or weakness ENDOCRINE: No cold or heat intolerance GENITOURINARY: No urgency or frequency of urination MUSCULOSKELETAL: No back pain or joint pain LYMPHATICS: No enlarged lymph nodes PSYCHIATRIC: No anxiety or depression Assessment and Plan Assessmemt and Plan Problems Medical Problems: (1) Cellulitis Status: Acute (2) CHF (congestive heart failure) Status: Acute (3) Elevated lactic acid level Status: Acute Comment Review of Relevant I have reviewed the following items carl (where applicable) has been applied. Labs Laboratory Tests Test 07/16/18 12:00 07/17/18 05:00 07/17/18 09:00 Influenza Type A Antigen Negative (NEGATIVE) Influenza Type B Antigen Negative (NEGATIVE) White Blood Count 3.1 x10^3/uL (4.0-11.0) Red Blood Count 2.79 x10^6/uL (4.30-5.70) Hemoglobin 7.7 g/dL (13.0-17.5) Hematocrit 25.1 % (39.0-53.0) Mean Corpuscular Volume 90 fL (79-100) Mean Corpuscular Hemoglobin 28 pg (25-35) Mean Corpuscular Hemoglobin Concent 31 g/dL (31-37) Red Cell Distribution Width 17.9 % (11.5-14.5) Platelet Count 163 x10^3/uL (140-400) Neutrophils (%) (Auto) 66 % (31-73) Lymphocytes (%) (Auto) 20 % (24-48) Monocytes (%) (Auto) 12 % (0-9) Eosinophils (%) (Auto) 2 % (0-3) Basophils (%) (Auto) 1 % (0-3) Neutrophils # (Auto) 2.0 x10^3uL (1.8-7.7) Lymphocytes # (Auto) 0.6 x10^3/uL (1.0-4.8) Monocytes # (Auto) 0.4 x10^3/uL (0.0-1.1) Eosinophils # (Auto) 0.1 x10^3/uL (0.0-0.7) Basophils # (Auto) 0.0 x10^3/uL (0.0-0.2) Sodium Level 142 mmol/L (136-145) Potassium Level 3.3 mmol/L (3.5-5.1) Chloride Level 105 mmol/L (98-107) Carbon Dioxide Level 27 mmol/L (21-32) Anion Gap 10 (6-14) Blood Urea Nitrogen 10 mg/dL (8-26) Creatinine 0.9 mg/dL (0.7-1.3) Estimated GFR (Cockcroft-Gault) 83.2 BUN/Creatinine Ratio 11 (6-20) Glucose Level 101 mg/dL (70-99) Lactic Acid Level 0.8 mmol/L (0.4-2.0) Calcium Level 8.1 mg/dL (8.5-10.1) Total Bilirubin 0.4 mg/dL (0.2-1.0) Aspartate Amino Transf (AST/SGOT) 16 U/L (15-37) Alanine Aminotransferase (ALT/SGPT) 16 U/L (16-63) Alkaline Phosphatase 73 U/L (46-116) Total Protein 5.3 g/dL (6.4-8.2) Albumin 2.2 g/dL (3.4-5.0) Albumin/Globulin Ratio 0.7 (1.0-1.7) Erythrocyte Sedimentation Rate 20 (0-15) Microbiology 07/15/18 Blood Culture - Preliminary, Resulted NO GROWTH AFTER 2 DAYS Medications Current Medications Albuterol Sulfate (Ventolin Neb Soln) 2.5 mg 1X ONCE NEB Last administered on 07/15/18at 20:26; Start 07/15/18 at 20:30; Stop 07/15/18 at 20:31; Status DC Potassium Chloride (Klor-Con) 40 meq 1X ONCE PO Last administered on at 21:34; Start 07/15/18 at 21:15; Stop 07/15/18 at 21:16; Status DC Meropenem 1 gm/ Sodium Chloride 100 ml @ 200 mls/hr Q8HRS IV Last administered on 07/16/18at 05:37; Start 07/16/18 at 06:00; Stop 07/16/18 at 11:53 ; Status DC Ondansetron HCl (Zofran) 4 mg PRN Q8HRS PRN IV NAUSEA/VOMITING; Start 07/15/18 at 21:45; Stop 07/16/18 at 08:59; Status DC Fentanyl Citrate (Fentanyl 2ml Vial) 50 mcg PRN Q1HR PRN IV PAIN Last administered on 07/16/18at 02:40; Start 07/15/18 at 21:45; Stop 07/16/18 at 21:44 ; Status DC Sodium Chloride 1,000 ml @ 75 mls/hr [id number] IV Last administered on at 09:41; Start 07/15/18 at 21:31; Stop 07/16/18 at 21:30; Status DC Albuterol/ Ipratropium (Duoneb) 3 ml RTQID NEB Last administered on 07/16/18at 21:10; Start 07/16/18 at 08:00; Stop 07/17/18 at 07:59; Status DC Meropenem 1 gm/ Sodium Chloride 100 ml @ 200 mls/hr Q8HRS IV ; Start 07/15/18 at 22:00; Stop 07/15/18 at 22:00; Status DC Meropenem 1 gm/ Sodium Chloride 100 ml @ 200 mls/hr ONCE ONCE IV Last administered on 07/15/18at 21:52; Start 07/15/18 at 22:00; Stop 07/15/18 at 22:29 ; Status DC Ondansetron HCl (Zofran) 4 mg PRN Q6HRS PRN IV NAUSEA/VOMITING; Start 07/16/18 at 09:00 Albuterol Sulfate (Ventolin Neb Soln) 2.5 mg PRN Q6HRS PRN INH SHORTNESS OF BREATH; Start 07/16/18 at 09:00 Aspirin (Children'S Aspirin) 81 mg DAILY PO Last administered on 07/18/18at 07: 53; Start 07/16/18 at 10:00 Ergocalciferol (Vitamin D2) 50,000 unit Tu PO ; Start 07/22/18 at 09:00 Ferrous Sulfate (Feosol) 325 mg BID PO Last administered on 07/18/18at 07:53; Start 07/16/18 at 10:00 Acetaminophen/ Hydrocodone Bitart (Lortab 7.5/325) 1 tab PRN Q4HRS PRN PO MODERATE PAIN Last administered on 07/18/18 04:40; Start 07/16/18 at 09:00 Acetaminophen/ Hydrocodone Bitart (Lortab 7.5/325) 1 tab PRN Q4HRS PRN PO PAIN ; Start 07/16/18 at 09:00; Status UNV Multivitamins (Thera M Plus) 1 tab DAILY PO Last administered on 07/18/18 07: 53; Start 07/16/18 at 10:00 Tramadol HCl (Ultram) 50 mg PRN TID PRN PO MILD PAIN Last administered on 06:00; Start 07/16/18 at 09:00 Non-Formulary Medication (Losartan/ Hydrochlorothiazide (Losartan-Hctz 100-25 Mg Tab)) 1 tab DAILY PO ; Start 07/16/18 at 09:00; Status UNV Polyethylene Glycol (miraLAX PACKET) 17 gm PRN DAILY PRN PO CONSTIPATION; Start 07/17/18 at 09:00 Losartan Potassium (Cozaar) 100 mg DAILY PO Last administered on 07/18/18 07: 53; Start 07/16/18 at 10:00 Hydrochlorothiazide (Hydrodiuril) 25 mg DAILY PO Last administered on 07:52; Start 07/16/18 at 10:00 Meropenem 1 gm/ Sodium Chloride 100 ml @ 200 mls/hr Q8HRS IV Last administered on 07/18/18 04:40; Start 07/16/18 at 14:00 Multivitamins (Thera M Plus) 1 tab DAILY PO ; Start 07/17/18 at 09:00; Status UNV Lactobacillus Rhamnosus (Culturelle) 1 cap BID PO Last administered on 07:53; Start 07/16/18 at 21:00 Potassium Chloride (Klor-Con) 40 meq 1X ONCE PO Last administered on 09:25; Start 07/17/18 at 10:00; Stop 07/17/18 at 10:01; Status DC Active Scripts Active Hydrocodone-Apap 7.5-325 (Hydrocodone Bit/Acetaminophen) 1 Tab Tablet 1 Tab PO PRN Q4HRS PRN MDD 1 10 Days Thera-M Tablet (Multivits,Ca,Minerals/Iron/Fa) 1 Each Tablet 1 Tab PO DAILY 30 Days Vitamin D2 (Ergocalciferol (Vitamin D2)) 50,000 Unit Capsule 50,000 Unit PO TU 7 Days Reported Hydrocodone-Apap 7.5-325 (Hydrocodone Bit/Acetaminophen) 1 Tab Tablet 1 Tab PO PRN Q4HRS PRN Tramadol Hcl 50 Mg Tablet 50 Mg PO PRN TID PRN Losartan-Hctz 100-25 Mg Tab (Losartan/Hydrochlorothiazide) 1 Each Tablet 1 Tab PO DAILY Polyethylene Glycol 3350 2,500 Gm Powder 17 Gm PO PRN DAILY PRN Ferrous Sulfate 325 Mg Tablet 325 Mg PO BID Proair Hfa Inhaler (Albuterol Sulfate) 8.5 Gm Hfa.aer.ad 2 Puff INH PRN Q6HRS PRN Aspirin 81 Mg Tab.chew 81 Mg PO DAILY Vitals/I & O Vital Sign - Last 24 Hours 07/17/18 07/17/18 07/17/18 07/17/18 11:00 15:13 15:48 19:30 Temp 98.7 98.0 97.5 98.7 98.0 97.5 Pulse 84 78 78 Resp 20 20 20 B/P (MAP) 150/83 (105) 155/75 (101) 157/89 (111) Pulse Ox 95 97 95 O2 Delivery Room Air Room Air Room Air Room Air 07/17/18 07/17/18 07/17/18 07/17/18 20:00 20:35 21:29 23:30 Temp 97.6 97.6 Pulse 75 Resp 20 B/P (MAP) 172/83 (112) Pulse Ox 92 O2 Delivery Room Air Room Air Room Air Room Air 07/18/18 07/18/18 07/18/18 07/18/18 00:42 03:30 04:40 05:40 Temp 97.5 97.5 Pulse 76 Resp 20 B/P (MAP) 168/84 (112) Pulse Ox 91 O2 Delivery Room Air Room Air Room Air Room Air 07/18/18 07/18/18 07/18/18 07/18/18 06:00 07:09 07:11 07:35 Temp 97.8 97.8 Pulse 82 Resp 20 B/P (MAP) 164/65 (98) Pulse Ox 94 O2 Delivery Room Air Room Air Room Air Room Air 07/18/18 07:53 Pulse 82 B/P (MAP) 164/65 Intake and Output 07/17/18 07/17/18 07/18/18 15:00 23:00 07:00 Intake Total 240 ml 740 ml 200 ml Output Total 2 ml 250 ml Balance 240 ml 738 ml -50 ml JAZMIN OSULLIVAN MD Jul 18, 2018 11:00
--- NOTE | 2018-07-18 11:04 | NUR ---
SW following pt. orders faxed to [facility] and SAMANTHA confirmed with [facility] they have received orders. Che from [facility] will also meet with pt as well. Pt aware of plan and agreeable and reported his will pick him up. Discussed with RN.
--- NOTE | 2018-07-18 11:07 | PDOC ---
Infectious Disease Note Subjective: Subjective Pt says feels much better no f/c/n/v has frequent stools semiformed per nursing staff ready for dc home today ROS: ROS Negative except for above. Vital Signs: Vital Signs Vital Signs Date Time Temp Pulse Resp B/P (MAP) Pulse Ox O2 Delivery O2 Flow Rate FiO2 07/18/18 07:53 82 164/65 07/18/18 07:35 97.8 20 94 Room Air 97.8 Physical Exam: PHYSICAL EXAM GENERAL: Alert, oriented x 3 male, in no acute distress. HEENT: Normocephalic, atraumatic, anicteric. NECK: Supple. No JVD. LUNGS: Clear bilaterally. HEART: S1, S2 regular. ABDOMEN: Benign. EXTREMITIES: No edema, no cyanosis. DERMATOLOGIC: The right lateral ankle incision with dressing in place. No purulence clean. No fluctuance. No hardware visible. CENTRAL NERVOUS SYSTEM: Alert and oriented x 3. Grossly nonfocal. MUSCULOSKELETAL: Bilateral knee replacement. Incision sites are well healed. Medications: Inpatient Meds: Current Medications Medications (Trade) Dose Ordered Sig/Liseth Start Time Stop Time Status Last Admin Dose Admin Acetaminophen/ Hydrocodone Bitart (Lortab 7.5/325) 1 tab PRN Q4HRS PRN 07/16/18 09:00 UNV Albuterol Sulfate (Ventolin Neb Soln) 2.5 mg PRN Q6HRS PRN 07/16/18 09:00 Albuterol/ Ipratropium (Duoneb) 3 ml RTQID 07/16/18 08:00 07/17/18 07:59 DC 07/16/18 21:10 3 ML Aspirin (Children'S Aspirin) 81 mg DAILY 07/16/18 10:00 07/18/18 07:53 81 MG Ergocalciferol (Vitamin D2) 50,000 unit Tu 07/22/18 09:00 Fentanyl Citrate (Fentanyl 2ml Vial) 50 mcg PRN Q1HR PRN 07/15/18 21:45 07/16/18 21:44 DC 07/16/18 02:40 50 MCG Ferrous Sulfate (Feosol) 325 mg BID 07/16/18 10:00 07/18/18 07:53 325 MG Hydrochlorothiazide (Hydrodiuril) 25 mg DAILY 07/16/18 10:00 07/18/18 07:52 25 MG Lactobacillus Rhamnosus (Culturelle) 1 cap BID 07/16/18 21:00 07/18/18 07:53 1 CAP Losartan Potassium (Cozaar) 100 mg DAILY 07/16/18 10:00 07/18/18 07:53 100 MG Meropenem 1 gm/ Sodium Chloride 100 ml @ 200 mls/hr Q8HRS 07/16/18 14:00 07/18/18 04:40 200 MLS/HR Multivitamins (Thera M Plus) 1 tab DAILY 07/17/18 09:00 UNV Non-Formulary Medication (Losartan/ Hydrochlorothiazide (Losartan-Hctz 100-25 Mg Tab)) 1 tab DAILY 07/16/18 09:00 UNV Ondansetron HCl (Zofran) 4 mg PRN Q6HRS PRN 07/16/18 09:00 Polyethylene Glycol (miraLAX PACKET) 17 gm PRN DAILY PRN 07/17/18 09:00 Potassium Chloride (Klor-Con) 40 meq 1X ONCE 07/17/18 10:00 07/17/18 10:01 DC 07/17/18 09:25 40 MEQ Sodium Chloride 1,000 ml @ 75 mls/hr [id number] 07/15/18 21:31 07/16/18 21:30 DC 07/16/18 09:41 75 MLS/HR Tramadol HCl (Ultram) 50 mg PRN TID PRN 07/16/18 09:00 07/18/18 06:00 50 MG Objective: Assessment: 1. Lactic acidosis, etiology unclear. 2. Right ankle post-surgery infection with Enterobacter and Enterococcus faecalis, on IV Invanz, improving. ESR 20, Bone scan changes from recent surgery ,not unexpected 3. Right ankle fracture. 4. Coronary artery disease. 5. Hypotension with history of underlying hypertension.resolved 6. Congestive heart failure. Plan: Plan of Care ertapenem one today before dc home script given to for home discharge abs cbc/bun/creat/esr on 07/21 fax to [phone] Continue wound care per wound team. Follow up in our clinic next week as planned. D/W ROMA CRAWFORD MD Jul 18, 2018 11:07
[2018-07-18] MEDS ORDERED: ERTAPENEM 1GM IVPB (GENERIC) 50 ML IV ONE (12:30)
--- NOTE | 2018-07-18 12:55 | PDOC ---
Progress Note-Wound Care SUBJECTIVE Pt states he has no pain or discomfort from the wound OBJECTIVE Vital Signs Vital Signs Date Time Temp Pulse Resp B/P (MAP) Pulse Ox O2 Delivery O2 Flow Rate FiO2 07/17/18 07:15 98.7 88 18 148/87 (107) 96 Room Air 98.7 Vital Signs Date Time Temp Pulse Resp B/P (MAP) Pulse Ox O2 Delivery O2 Flow Rate FiO2 07/18/18 11:00 97.5 106 20 150/70 (96) 92 Room Air 97.5 Physical Exam: RLE: no edema. No periwound erythema. Drainage on dressing was yellow-zamarripa with greenish tint. No odor. No drainage from wound during exam. Wound is slough- covered. Deepest extent is one cm. I can probe to hardware and a small void ant to hardware, still no more than 1 cm deep. ASSESSMENT Problems: (1) Open wound of right foot Qualifiers: Qualified Codes: S91.301A - Unspecified open wound, right foot, initial encounter WOUND Location of Modifier: Right Wound Location: Lateral Body Site: Ankle Drainage Amount: Moderate Drainage Description: Yellow Odor: None/Absent Surrounding Tissue Appearance: pink Wound Description: SQ Tunneling: Present (1.9 cm) PLAN OK to discharge home on IV antibiotics. He will need NPWT when the wound is cleaners (less slough/fibrin). F/U with us in the Wound Care Clinic as scheduled on SaturdayJuly 21. FOLLOW-UP SaturdayJuly 21 [facility] Surgical Debridement #1 Time Out Completed: Time Out Procedure: H&P Performed Wound Location: Right lateral ankle Tissue Removed: Non-Viable, Slough Method of Debridement: Scissors Depth of Debridement: SQ Bleeding: None Pain Level: Pain ___/10 0 NYLA SHARIF MD Jul 18, 2018 12:55
--- NOTE | 2018-07-18 13:05 | NUR ---
wound Care Pt seen for wound care follow up with Dr. Huston. Pt's R ankle wound assessed, after informed consent, Dr. Huston sharply debrided slough from the wound bed, pt tolerated well, as he stated he has no feeling in the wound. Able to probe to hardware within wound bed, pt going home on IV ABx. Orders received to redress with Hydrofera blue for antimicrobial effect, then covered with Xeroform gauze and a foam dressing, recommend changing every 2-3 days. The plan is for pt to have HH RN change dressings on Mondays and Wednesdays, and [facility] wound clinic will see pt in the wound clinic on Fridays with Dr. Huston. We will apply for a wound vac, for possible application on 07/25/18. R ankle and and R dorsal hand both measured and photographed for possible d/c today. R hand dressing to be the same as ankle-HFB, Xeroform and a foam, change Q2-3 days. Pt v/u of f/u next week.
--- NOTE | 2018-07-18 14:32 | RAD ---
EXAM: Right lower extremity venous Doppler sonogram. HISTORY: Right upper extremity swelling surrounding a peripherally inserted centimeters catheter. TECHNIQUE: Taylor scale and color Doppler sonographic evaluation of the right upper extremity veins with spectral waveform analysis was performed. FINDINGS: There is occlusive deep venous thrombosis involving the right axillary vein and one of two brachial remains, and the basilic vein proximal to the antecubital fossa. There is normal color flow, normal compressibility and there are normal spectral waveforms in the remainder of the upper extremity veins. IMPRESSION: Occlusive deep venous thrombosis involving the right axillary vein, one of two brachial and the basilic vein proximal to the antecubital fossa. This information was communicated to the nurse caring for the patient by the executive sous chef at the time of the exam. Electronically signed by: Judy Oconnor MD (07/18/2018 2:29 PM) [place] [id number]
--- NOTE | 2018-07-18 15:01 | NUR ---
SW following pt. Spoke with RN and pt is not discharging today. SAMANTHA notified [facility] and González SALDANA regarding change of plan. Please call Brown on [phone], fax: [phone] and González SALDANA, phone: [phone], fax: [phone] if pt discharge over the weekend.
[2018-07-18 15:30] VITALS: BP 164/65
[2018-07-18 15:32] LABS: PROTHROMBIN TIME PATIENT 14.4 SEC (11.7-14.0)
--- NOTE | 2018-07-18 17:42 | NUR ---
Received notified that patient had positive DVT in RUE, notified Dr. 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 IR unable to complete PICC line today. Notified THERESA Walter supervisor reactor fueling, she is to call [facility] for PICC line, awaiting response.
[2018-07-18 19:15] VITALS: BP 165/73
[2018-07-18 23:15] VITALS: BP 175/91
[2018-07-19] MEDS: MEROPENEM 1 GM in IV NORMAL SALINE 100ML 100 ML IV SCH ×4 (00:32→22:21)
--- NOTE | 2018-07-19 01:01 | RAD ---
AP portable chest radiograph 07/19/2018 Clinical History: Post PICC line placement. An AP erect portable digital radiograph of the chest was obtained. Comparison study is dated 07/15/2018. A left arm PICC has been placed. The tip of this catheter extends to overlie the superior vena cava. The cardiac silhouette is mildly enlarged. The thoracic aorta is mildly tortuous. Right lower lobe atelectasis and/or infiltrate is seen. No pneumothorax or pleural effusion is noted. The osseous structures are unchanged. Impression: The tip of the left arm PICC extends to overlie the superior vena cava. Electronically signed by: Adolfo Rebolledo MD (07/19/2018 12:58 AM) [facility]
[2018-07-19 03:20] VITALS: BP 165/77
[2018-07-19 07:00] VITALS: BP 167/87
--- NOTE | 2018-07-19 07:29 | NUR ---
During walking rounds pt had turned and accidently pulled out PICC half way. I pulled it out the rest of the way and put a pressure dsg on it. I told him to contact the nurse THAI if bleeding doesn't stop since he is on blood thinners.
[2018-07-19] MEDS ORDERED: cloNIDine HCL 0.1 MG TABLET PO PRN (08:45)
[2018-07-19] MEDS: LOSARTAN POTASSIUM 50 MG TABLET. PO SCH (09:22)
[2018-07-19] MEDS: hydroCHLOROthiazide 25 MG TABLET PO SCH (09:22)
[2018-07-19] MEDS: MULTIVITAMIN with MINERAL TABLET. PO SCH (09:22)
[2018-07-19] MEDS: ASPIRIN CHEWABLE 81 MG TABLET. PO SCH (09:22)
[2018-07-19] MEDS: FERROUS SULFATE 325 MG TABLET. PO SCH ×2 (09:22→21:33)
[2018-07-19] MEDS: LACTOBACILLUS RHAMNOSUS GG 1 CAPSULE. PO SCH ×2 (09:22→21:33)
[2018-07-19] MEDS ORDERED: RIVA10TA PO (10:19)
--- NOTE | 2018-07-19 10:22 | PDOC3 ---
Discharge Summary Visit Information Date of Admission: Jul 16, 2018 Date of Discharge: Jul 19, 2018 Admitting Diagnosis Comment: Hypotension by home health RN-resolved Hypertension now Left ankle foot wound looks clean follows with wound care Sepsis, OM?-Supposed to be in IV antibiotics for weeks, on week 2, Indwelling right PICC, with DVT new 07/18/18 Overweight, BMI 35 Final Diagnosis Problems Medical Problems: (1) Cellulitis Status: Acute (2) CHF (congestive heart failure) Status: Acute (3) Elevated lactic acid level Status: Acute Brief Hospital Course Allergies Allergies Coded Allergies Type Severity Reaction Last Updated Verified shellfish derived Allergy Mild makes him drowsy 06/19/18 Yes Vital Signs Vital Signs Date Time Temp Pulse Resp B/P (MAP) Pulse Ox O2 Delivery O2 Flow Rate FiO2 07/19/18 09:22 101 167/87 07/19/18 07:00 97.4 18 95 Room Air 97.4 Lab Results Laboratory Tests Test 07/18/18 15:10 Prothrombin Time 14.4 SEC (11.7-14.0) Prothromb Time International Ratio 1.2 (0.8-1.1) Laboratory Tests Test 07/18/18 15:10 Prothrombin Time 14.4 SEC (11.7-14.0) Prothromb Time International Ratio 1.2 (0.8-1.1) Brief Hospital Course Mr. Egan is a 73 old white male who has currently right indwelling PICC for IV antibiotics for X amount of weeks getting IV infusion 30 minute with home health. Admitted because RN home health found him to be hypotensive with minimal symptoms. At the emergency room and his course , he is actually hypertensive. I was about to discharge him but then developed some DVT on the right indwelling PICC. We transfer the picc to the left side but he accidentally lost it. We are trying to get another one. He stable to go home once cleared by ID to continue his IV infusion, he follows with Dr. Fulton for planned hardware removal on the right ankle. Wound care was also consulted as he was following up , bone scan was of which showed some uptake but wound actually looks good hence we're okay with current plan to continue IV abx home health. The right arm swelling is much better once removal of PICC. But since it is occlusive, advise Xarelto 10 twice a day for 7 days then 5 twice a day maybe for 1 month. Follow-up wound care as instructed, follow-up Dr. Fulton as previous scheduled Consults performed by ID, wound care Procedures performed PICC line insertions and removals dc 40 mins Discharge Information Condition at Discharge: Improved, Stable Disposition/Orders: D/C to Home w/ HH Scheduled Aspirin (Aspirin) 81 Mg Tab.chew, 81 MG PO DAILY, (Reported) Entered as Reported by: LIZZIE JIMENEZ on 05/07/17656 Last Action: Continued on 07/16/18858 by JAZMIN OSULLIVAN Ergocalciferol (Vitamin D2) (Vitamin D2) 50,000 Unit Capsule, 50,000 UNIT PO Tu for ONCE A WEEK SUPPLEMENT-BONES for 7 Days, #7 Prescribed by: DUKE DE PAZ MD on 05/07/181250 Last Action: Continued on 07/16/18858 by JAZMIN OSULLIVAN Ferrous Sulfate (Ferrous Sulfate) 325 Mg Tablet, 325 MG PO BID, (Reported) Entered as Reported by: CHOLO CRUZ on 05/08/17 180 Last Action: Continued on 07/16/18858 by JAZMIN OSULLIVAN Losartan/Hydrochlorothiazide (Losartan-Hctz 100-25 Mg Tab) 1 Each Tablet, 1 TAB PO DAILY for htn, #30 Ref 5 (Reported) Entered as Reported by: ANDREW TORRES on 05/03/18 1526 Last Action: Converted on 07/16/18858 by JAZMIN OSULLIVAN Multivits,Ca,Minerals/Iron/Fa (Thera-M Tablet) 1 Each Tablet, 1 TAB PO DAILY for SUPPLEMENT for 30 Days, #30 Prescribed by: DUKE DE PAZ MD on 05/07/18 125 Last Action: Continued on 07/16/18858 by JAZMIN OSULLIVAN Rivaroxaban (Xarelto) 10 Mg Tablet, 10 MG PO BID for 7, #20 Prescribed by: JAZMIN OSULLIVAN on 07/19/18 1019 Scheduled PRN Albuterol Sulfate (Proair Hfa Inhaler) 8.5 Gm Hfa.aer.ad, 2 PUFF INH PRN Q6HRS PRN for SHORTNESS OF BREATH, Ref 0 (Reported) Entered as Reported by: LIZZIE JIMENEZ on 1/16/18 0657 Last Action: Continued on 07/16/18858 by JAZMIN OSULLIVAN Hydrocodone Bit/Acetaminophen (Hydrocodone-Apap 7.5-325 ) 1 Tab Tablet, 1 TAB PO PRN Q4HRS PRN for PAIN MILD/MOD 1ST CHOICE MDD 1 for 10 Days, #20 Prescribed by: JAZMIN OSULLIAVN on 06/19/18 1042 Last Action: Continued on 07/16/18858 by JAZMIN OSULLIVAN Hydrocodone Bit/Acetaminophen (Hydrocodone-Apap 7.5-325 ) 1 Tab Tablet, 1 TAB PO PRN Q4HRS PRN for PAIN, Ref 0 (Reported) Entered as Reported by: LEONIE SALMERON on 07/15/182256 Last Action: Continued on 07/16/18858 by JAZMIN OSULLIVAN Polyethylene Glycol 3350 (Polyethylene Glycol 3350) 2,500 Gm Powder, 17 GM PO PRN DAILY PRN for CONSTIPATION, #255 (Reported) Entered as Reported by: CHOLO CRUZ on 05/08/171808 Last Action: Converted on 07/16/18858 by JAZMIN OSULLIVAN Tramadol Hcl (Tramadol Hcl) 50 Mg Tablet, 50 MG PO PRN TID PRN for PAIN, ( Reported) Entered as Reported by: LEONIE SALMERON on 07/15/182256 Last Action: Continued on 07/16/18858 by JAZMIN STARR MD Jul 19, 2018 10:22
[2018-07-19 11:00] VITALS: BP 154/83
[2018-07-19 15:00] VITALS: BP 149/77
[2018-07-19] MEDS: HYDROcodone/APAP 7.5/325MG 1 TAB TABLET PO PRN (16:18)
--- NOTE | 2018-07-19 16:30 | NUR ---
Due to communicational error on my behalf this pt will not be able to get his PICC re-insertion till tomorrow morning. He will not be able to get discharged today and as soon as his PICC is done in the morning then he can go home with home health. My knowledge of how to set up a PICC insertion on the weekends was misconstrued. Kenn Bailey RN
[2018-07-19] MEDS ORDERED: ONDANSETRON ODT 4 MG TAB.RAPDIS. PO PRN (17:00)
[2018-07-19 19:50] VITALS: BP 129/89
[2018-07-19 23:16] VITALS: BP 148/88
[2018-07-20 03:29] VITALS: BP 166/81
[2018-07-20] MEDS: MEROPENEM 1 GM in IV NORMAL SALINE 100ML 100 ML IV SCH ×2 (05:57→14:00)
[2018-07-20 07:00] VITALS: BP 152/73
[2018-07-20] MEDS: LOSARTAN POTASSIUM 50 MG TABLET. PO SCH (08:11)
[2018-07-20] MEDS: MULTIVITAMIN with MINERAL TABLET. PO SCH (08:12)
[2018-07-20] MEDS: ASPIRIN CHEWABLE 81 MG TABLET. PO SCH (08:12)
[2018-07-20] MEDS: hydroCHLOROthiazide 25 MG TABLET PO SCH (08:12)
[2018-07-20] MEDS: LACTOBACILLUS RHAMNOSUS GG 1 CAPSULE. PO SCH (08:12)
[2018-07-20] MEDS: FERROUS SULFATE 325 MG TABLET. PO SCH (08:12)
[2018-07-20] MEDS: HYDROcodone/APAP 7.5/325MG 1 TAB TABLET PO PRN ×2 (08:14→16:40)
--- NOTE | 2018-07-20 09:46 | PDOC ---
Provider Note Provider Note Pt did not dcyesterday bec of some miscommunication with PICC HE will get PICC re inserted today, left arm HE has a DVT RT arm, provoked by PICC IV INvanz qdaily thru HH arranged HOME LATER AFTER PICC Dw THERESA RIVERS done yesterday JAZMIN OSULLIVAN MD Jul 20, 2018 09:46
[2018-07-20 11:00] VITALS: BP 141/52
--- NOTE | 2018-07-20 15:45 | NUR ---
per phone call from michael palencia, this pt is to recieve one dose of Ivanz prior to discharge home with home health. put order for one dose of Ivanz. Kenn Bailey RN
[2018-07-20] MEDS ORDERED: ERTAPENEM 1GM IVPB (GENERIC) 50 ML IV ONE (16:00)
--- NOTE | 2018-07-20 16:24 | RAD ---
Single view chest 07/20/2018 Clinical indication: PICC placement. COMPARISON: Chest 07/19/2017 FINDINGS: Patient is rotated. There is a left-sided PICC overlying the superior caval atrial junction. Enlargement of the cardiac silhouette. There are bibasilar airspace opacities. No definite pleural effusion. No pneumothorax. Enlargement of the cardiac silhouette. IMPRESSION: 1. Left-sided PICC, as detailed. 2. Persistent bibasilar airspace opacities, may represent multifocal infectious or inflammatory pneumonitis, and aspiration is not excluded. 2. Stable cardiomegaly. Electronically signed by: Nile Siegel MD (07/20/2018 4:21 PM) [facility]
--- NOTE | 2018-07-20 16:42 | NUR ---
Pt discahrged home with home health.....PICC was inserted today and ran one dose of InVanz prior to the pt being wheeled down to main entrance. gave scripts for lortab, Invanz and xarelto to pts to take to the pharm.... Kenn Bailey RN
[2018-07-22] MEDS ORDERED: ERGOCALCIFEROL (VITAMIN D2) 50,000 UNIT CAPSULE. PO SCH (09:00)
[2018-08-01] MEDS ORDERED: HYDR-2765 PO (11:14)
[2018-08-01] MEDS ORDERED: LINE600I PO (11:14)
== END 2018-07-20 16:58 | disposition home health service (06) | DRG 856 ==
LOC: ER 19:38 → 6 SOUTH 21:22 → ER 22:29 → 6 SOUTH 07-18 12:01
PROVIDERS: ADMIT Family Medicine; ATTEND Family Medicine
PROC: 0JBQ0ZZ Excision of Right Foot Subcutaneous Tissue and Fascia, Open Approach (ICD-10-PCS; principal; 2018-07-18)
PROC: 02HV33Z Insertion of Infusion Device into Superior Vena Cava, Percutaneous Approach (ICD-10-PCS; 2018-07-19)
DX: T81.40XA Infection following a procedure, unspecified, initial encounter (principal); A41.9 Sepsis, unspecified organism; E43 Unspecified severe protein-calorie malnutrition; I82.621 Acute embolism and thrombosis of deep veins of right upper extremity; L03.113 Cellulitis of right upper limb; I95.9 Hypotension, unspecified; I11.0 Hypertensive heart disease with heart failure; I50.9 Heart failure, unspecified; B95.2 Enterococcus as the cause of diseases classified elsewhere; B96.89 Other specified bacterial agents as the cause of diseases classified elsewhere; I25.10 Atherosclerotic heart disease of native coronary artery without angina pectoris; J45.909 Unspecified asthma, uncomplicated; E66.3 Overweight; S91.301A Unspecified open wound, right foot, initial encounter; R19.7 Diarrhea, unspecified; Z96.653 Presence of artificial knee joint, bilateral; Y83.8 Other surgical procedures as the cause of abnormal reaction of the patient, or of later complication, without mention of misadventure at the time of the procedure; X58.XXXA Exposure to other specified factors, initial encounter; Z91.013 Allergy to seafood; Z79.899 Other long term (current) drug therapy; Z79.82 Long term (current) use of aspirin; Z79.01 Long term (current) use of anticoagulants; Z87.891 Personal history of nicotine dependence; Z83.3 Family history of diabetes mellitus; Z68.35 Body mass index [BMI] 35.0-35.9, adult; Y92.89 Other specified places as the place of occurrence of the external cause; Y93.89 Activity, other specified; Y99.8 Other external cause status
CPT/HCPCS: 36415; 36569; 71045; 71046; 78315; 80053; 81001; 83605; 83880; 85025; 85610; 85651; 87040; 87045; 87804; 93971; 94640; 96365; 96374; A9503; J1335; J1650; J2185; J3010; J7030; J7613; J7620; Q0162; 99285-25

== ENCOUNTER → 2018-07-25 | Outpatient (CLI) | payer OTHER ==
[~2018-07-25] MED LIST changes: +ATOR20TA58 PO; +DAPTOMYCIN IV ONE; +LINE600I PO; +NORMAL SALINE IV ONE; +RIVA10TA PO; +TRAM50TA PO
[2018-07-25 14:56] VITALS: BP 137/79
== END | disposition home or self-care (01) ==
LOC: OPS 11:39
PROVIDERS: ATTEND Internal Medicine Infectious Disease
DX: M00.9 Pyogenic arthritis, unspecified (principal); I25.10 Atherosclerotic heart disease of native coronary artery without angina pectoris; I11.0 Hypertensive heart disease with heart failure; I50.9 Heart failure, unspecified; I95.9 Hypotension, unspecified; Z79.01 Long term (current) use of anticoagulants; Z79.82 Long term (current) use of aspirin; Z79.899 Other long term (current) drug therapy; Z87.891 Personal history of nicotine dependence; J45.909 Unspecified asthma, uncomplicated; E87.1 Hypo-osmolality and hyponatremia; E87.6 Hypokalemia; M86.8X7 Other osteomyelitis, ankle and foot
CPT/HCPCS: 96365; J0878

== ENCOUNTER 2018-07-29 06:54 | Inpatient (IN) | payer OTHER ==
[2018-07-29] VITALS (11 sets, daily range): BP systolic 131–170; BP diastolic 78–100
[~2018-07-29] VITALS: Ht 185.4 cm; Wt 112.9 kg
[~2018-07-29 06:54] MED LIST changes: -ATOR20TA58 PO; +BUPIVACAINE-EPI 0.25%-1:200000 MPF 30 ML VIAL. ONE; -DAPTOMYCIN IV ONE; -LINE600I PO; -NORMAL SALINE IV ONE
[2018-07-29] MEDS ORDERED: ONDANSETRON PF 4 MG/2 ML VIAL. IV PRN ×2 (07:00→11:00)
[2018-07-29] MEDS ORDERED: IV RINGERS,LACTATED 1000ML 1,000 ML IV SCH (07:00)
[2018-07-29] MEDS ORDERED: PROCHLORPERAZINE 10 MG/2 ML VIAL. IV PRN (07:00)
[2018-07-29] MEDS ORDERED: HYDROmorphone 2 MG/ML VIAL IV PRN (07:00)
[2018-07-29] MEDS ORDERED: fentaNYL PF VIAL 100 MCG/2 ML VIAL IV PRN ×2 (07:00→11:00)
[2018-07-29] MEDS ORDERED: MORPHINE SULFATE 2 MG/ML VIAL. IV PRN ×2 (07:00→11:00)
[2018-07-29] MEDS ORDERED: ONDANSETRON PF 4 MG/2 ML VIAL. ONE (08:45)
[2018-07-29] MEDS ORDERED: LIDOCAINE 2% PF 5 ML VIAL. ONE (08:45)
[2018-07-29] MEDS ORDERED: PROPOFOL 20 ML IV ONE (08:45)
[2018-07-29] MEDS ORDERED: MIDAZOLAM HCL/PF 2 MG/2 ML VIAL. ONE (08:45)
[2018-07-29] MEDS ORDERED: DEXAMETHASONE SOD PHOS 20 MG/5 ML VIAL. ONE (08:45)
[2018-07-29] MEDS ORDERED: fentaNYL PF VIAL 100 MCG/2 ML VIAL ONE ×2 (08:45→10:53)
[2018-07-29] MEDS ORDERED: SEVOFLURANE 61 TO 120 MINUTES. IH ONE (08:45)
[2018-07-29] MEDS ORDERED: KETOROLAC 30 MG/ML INJ FOR OR. INJ ONE (08:46)
[2018-07-29 08:55] LABS: BASO % 1 % (0-3); EOS # 0.3 x10^3/uL (0.0-0.7); EOS % 8 % (0-3); HEMATOCRIT 28.4 % (39.0-53.0); LYMPH # 1.1 x10^3/uL (1.0-4.8); LYMPH % 28 % (24-48); MEAN CORPUSCULAR HEMOGLOBIN 28 pg (25-35); MEAN CORPUSCULAR HGB CONC 32 g/dL (31-37); MEAN CORPUSCULAR VOLUME 87 fL (79-100); MONO # 0.5 x10^3/uL (0.0-1.1); MONO % 12 % (0-9); NEUT % 51 % (31-73); PLATELET COUNT 301 x10^3/uL (140-400); RED BLOOD COUNT 3.28 x10^6/uL (4.30-5.70)
[2018-07-29] MEDS ORDERED: FAMOTIDINE 20 MG/2 ML VIAL ONE (08:55)
[2018-07-29 09:04] LABS: CALCIUM 8.7 mg/dL (8.5-10.1); CREATININE 1.2 mg/dL (0.7-1.3); GFR 59.7
[2018-07-29 09:10] LABS: ALBUMIN 2.6 g/dL (3.4-5.0); ALBUMIN/GLOBULIN RATIO 0.7 (1.0-1.7); TOTAL BILIRUBIN 0.3 mg/dL (0.2-1.0); TOTAL PROTEIN 6.5 g/dL (6.4-8.2)
[2018-07-29] MEDS ORDERED: ePHEDrine PF IN SALINE 50 MG/10 ML SYRINGE. IV ONE (09:31)
--- NOTE | 2018-07-29 10:09 | PDOC1 ---
History and Physical Date of Admission Date of Admission DATE: 07/29/18 TIME: 10:08 Identification/Chief Complaint Chief Complaint 73-year-old male who has had a complicated left foot/ankle history since orthopedic surgery by Dr. Dalal in April 2018. TO OR TODAY Past Medical History Past Medical History Past Medical History Cardiovascular: CAD, HTN Past Surgical History Past Surgical History: Other (left foot/ankle surgery by orthopedics) Family History Family History: No Significant, Diabetes Social History Smoke: No ALCOHOL: 5 SHOTS A DAY OF [place] Drugs: None Cardiovascular: CAD, HTN Hepatobiliary: No pertinent hx Psych: No pertinent hx Past Surgical History Past Surgical History: Other Family History Family History: Alcohol Abuse, No Significant, Diabetes Social History Smoke: No ALCOHOL: heavy Drugs: None Current Medications Current Medications Current Medications Ondansetron HCl (Zofran) 4 mg PRN Q6HRS PRN IV NAUSEA/VOMITING; Start 07/29/18 at 07:00; Stop 07/29/18 at 20:00 Fentanyl Citrate (Fentanyl 2ml Vial) 25 mcg PRN Q5MIN PRN IV MILD PAIN; Start 07/29/18 at 07:00; Stop 07/29/18 at 20:00 Fentanyl Citrate (Fentanyl 2ml Vial) 50 mcg PRN Q5MIN PRN IV MODERATE TO SEVERE PAIN; Start 07/29/18 at 07:00; Stop 07/29/18 at 20:00 Morphine Sulfate (Morphine Sulfate) 1 mg PRN Q10MIN PRN IV SEVERE PAIN; Start 07/29/18 at 07:00; Stop 07/29/18 at 20:00 Ringer's Solution 1,000 ml @ 30 mls/hr Q24H IV Last administered on 07/29/18at 07:00; Start 07/29/18 at 07:00; Stop 07/29/18 at 18:59 Hydromorphone HCl (Dilaudid) 0.5 mg PRN Q10MIN PRN IV SEV PAIN, Second choice; Start 07/29/18 at 07:00; Stop 07/29/18 at 20:00 Prochlorperazine Edisylate (Compazine) 5 mg PACU PRN PRN IV NAUSEA, MRX1; Start 07/29/18 at 07:00; Stop 07/29/18 at 20:00 Cefazolin Sodium/ Dextrose 50 ml @ 100 mls/hr 1X PREOP PRN IV PRIOR TO PROCEDURE; Start 07/29/18 at 06:00; Stop 07/29/18 at 18:00 Bupivacaine HCl/ Epinephrine Bitart (Sensorcaine-Epi 0.25%-1:951283 Mpf) 30 ml STK-MED ONCE .ROUTE ; Start 07/29/18 at 06:11; Stop 07/29/18 at 07:12; Status DC Midazolam HCl (Versed) 2 mg STK-MED ONCE .ROUTE ; Start 07/29/18 at 08:45; Stop 07/29/18 at 08:46; Status DC Fentanyl Citrate (Fentanyl 2ml Vial) 100 mcg STK-MED ONCE .ROUTE ; Start at 08:45; Stop 07/29/18 at 08:46; Status DC Sevoflurane (Ultane) 60 ml STK-MED ONCE IH ; Start 07/29/18 at 08:45; Stop at 08:46; Status DC Dexamethasone Sodium Phosphate (Decadron) 20 mg STK-MED ONCE .ROUTE ; Start 07/29 at 08:45; Stop 07/29/18 at 08:46; Status DC Propofol 20 ml @ As Directed STK-MED ONCE IV ; Start 07/29/18 at 08:45; Stop 07/29 at 08:46; Status DC Lidocaine HCl (Lidocaine Pf 2% Vial) 5 ml STK-MED ONCE .ROUTE ; Start 07/29/18 at 08:45; Stop 07/29/18 at 08:46; Status DC Ondansetron HCl (Zofran) 4 mg STK-MED ONCE .ROUTE ; Start 07/29/18 at 08:45; Stop 07/29/18 at 08:46; Status DC Ketorolac Tromethamine (Toradol For Or Only) 30 mg STK-MED ONCE INJ ; Start 07/29 at 08:46; Stop 07/29/18 at 08:47; Status DC Famotidine (Pepcid Vial) 20 mg STK-MED ONCE .ROUTE ; Start 07/29/18 at 08:55; Stop 07/29/18 at 08:56; Status DC Ephedrine Sulfate (ePHEDrine PF IN SALINE SYRINGE) 50 mg STK-MED ONCE IV ; Start 07/29/18 at 09:31; Stop 07/29/18 at 09:32; Status DC Active Scripts Active Xarelto (Rivaroxaban) 10 Mg Tablet 10 Mg PO BID Hydrocodone-Apap 7.5-325 (Hydrocodone Bit/Acetaminophen) 1 Tab Tablet 1 Tab PO PRN Q4HRS PRN MDD 1 10 Days Vitamin D2 (Ergocalciferol (Vitamin D2)) 50,000 Unit Capsule 50,000 Unit PO TU 7 Days Reported Tramadol Hcl 50 Mg Tablet 50 Mg PO PRN TID PRN Losartan-Hctz 100-25 Mg Tab (Losartan/Hydrochlorothiazide) 1 Each Tablet 1 Tab PO DAILY Ferrous Sulfate 325 Mg Tablet 325 Mg PO BID Proair Hfa Inhaler (Albuterol Sulfate) 8.5 Gm Hfa.aer.ad 2 Puff INH PRN Q6HRS PRN Allergies Allergies: Coded Allergies: iodine (Verified Allergy, Intermediate, Unknown, 07/29/18) shellfish derived (Verified Allergy, Mild, makes him drowsy, 07/29/18) ROS Review of System Review of Systems Review of Systems Constitutional: Denies fever or chills [] Eyes: Denies change in visual acuity, redness, or eye pain [] HENT: Denies nasal congestion or sore throat [] Respiratory: Denies cough or shortness of breath [] Cardiovascular: No additional information not addressed in HPI [] GI: Denies abdominal pain, nausea, vomiting, bloody stools or diarrhea [] : Denies dysuria or hematuria [] Musculoskeletal: See history of present illness Integument: The history of present illness Neurologic: Denies headache, focal weakness or sensory changes [] Endocrine: Denies polyuria or polydipsia [] 14 PT systems were reviewed and found to be within normal limits, except as documented PSYCHOLOGICAL ROS: No: Anxiety, Behavioral Disorder, Concentration difficultie , Decreased libido, Depression, Disorientation, Hallucinations, Hostility, Irritablity, Memory difficulties, Mood Swings, Obsessive thoughts, Physical abuse, Sexual abuse, Sleep disturbances, Suicidal ideation, Other Cardiovascular: No Chest Pain, No Palpitations, No Orthopnea, No Paroxysmal Noc. Dyspnea, No Edema, No Lt Headedness, No Other Gastrointestinal: No Nausea, No Vomiting, No Abdominal Pain, No Diarrhea, No Constipation, No Melena, No Hematochezia, No Other Musculoskeletal: Yes Joint Pain, Yes Joint Stiffness Neurological: Yes Gait Disturbance Physical Exam Physical Exam Constitutional: Well developed, well nourished, no acute distress, non-toxic appearance. [] Neck: Normal range of motion, no tenderness, supple, no stridor. [] Cardiovascular:Heart rate regular rhythm, no murmur [] Lungs & Thorax: Bilateral breath sounds are coarse at the bases Abdomen: Bowel sounds normal, soft, no tenderness, no masses, no pulsatile masses. [] Skin: POST OP SITE DRY Neurologic: Alert and oriented X 3, normal sensory function, no focal deficits noted. [] Psychologic: Affect normal, judgement normal, mood normal. [] General: Alert, Oriented X3, Cooperative, mild distress HEENT: Atraumatic, PERRLA, EOMI, Mucous membr. moist/pink Lungs: Clear to auscultation Heart: S1S2, no thrills Breasts: Not examined Abdomen: Normal bowel sounds, Soft Rectal Exam: not examined PELVIC: Examination not indicated Extremities: No cyanosis, Normal pulses Skin: No significant lesion Neuro: Normal speech, Cranial nerves 3-12 NL Psych/Mental Status: Mental status NL, Mood NL Vitals Vitals Vital Signs Date Time Temp Pulse Resp B/P (MAP) Pulse Ox O2 Delivery O2 Flow Rate FiO2 07/29/18 07:37 98.5 78 144/88 96 Room Air 98.5 07/29/18 07:31 22 Labs Labs Laboratory Tests Test 07/29/18 07:30 White Blood Count 4.0 x10^3/uL (4.0-11.0) Red Blood Count 3.28 x10^6/uL (4.30-5.70) Hemoglobin 9.0 g/dL (13.0-17.5) Hematocrit 28.4 % (39.0-53.0) Mean Corpuscular Volume 87 fL (79-100) Mean Corpuscular Hemoglobin 28 pg (25-35) Mean Corpuscular Hemoglobin Concent 32 g/dL (31-37) Red Cell Distribution Width 18.0 % (11.5-14.5) Platelet Count 301 x10^3/uL (140-400) Neutrophils (%) (Auto) 51 % (31-73) Lymphocytes (%) (Auto) 28 % (24-48) Monocytes (%) (Auto) 12 % (0-9) Eosinophils (%) (Auto) 8 % (0-3) Basophils (%) (Auto) 1 % (0-3) Neutrophils # (Auto) 2.0 x10^3uL (1.8-7.7) Lymphocytes # (Auto) 1.1 x10^3/uL (1.0-4.8) Monocytes # (Auto) 0.5 x10^3/uL (0.0-1.1) Eosinophils # (Auto) 0.3 x10^3/uL (0.0-0.7) Basophils # (Auto) 0.0 x10^3/uL (0.0-0.2) Sodium Level 139 mmol/L (136-145) Potassium Level 3.0 mmol/L (3.5-5.1) Chloride Level 100 mmol/L (98-107) Carbon Dioxide Level 27 mmol/L (21-32) Anion Gap 12 (6-14) Blood Urea Nitrogen 17 mg/dL (8-26) Creatinine 1.2 mg/dL (0.7-1.3) Estimated GFR (Cockcroft-Gault) 59.7 BUN/Creatinine Ratio 14 (6-20) Glucose Level 84 mg/dL (70-99) Calcium Level 8.7 mg/dL (8.5-10.1) Total Bilirubin 0.3 mg/dL (0.2-1.0) Aspartate Amino Transf (AST/SGOT) 23 U/L (15-37) Alanine Aminotransferase (ALT/SGPT) 16 U/L (16-63) Alkaline Phosphatase 88 U/L (46-116) Total Protein 6.5 g/dL (6.4-8.2) Albumin 2.6 g/dL (3.4-5.0) Albumin/Globulin Ratio 0.7 (1.0-1.7) Laboratory Tests Test 07/29/18 07:30 White Blood Count 4.0 x10^3/uL (4.0-11.0) Red Blood Count 3.28 x10^6/uL (4.30-5.70) Hemoglobin 9.0 g/dL (13.0-17.5) Hematocrit 28.4 % (39.0-53.0) Mean Corpuscular Volume 87 fL (79-100) Mean Corpuscular Hemoglobin 28 pg (25-35) Mean Corpuscular Hemoglobin Concent 32 g/dL (31-37) Red Cell Distribution Width 18.0 % (11.5-14.5) Platelet Count 301 x10^3/uL (140-400) Neutrophils (%) (Auto) 51 % (31-73) Lymphocytes (%) (Auto) 28 % (24-48) Monocytes (%) (Auto) 12 % (0-9) Eosinophils (%) (Auto) 8 % (0-3) Basophils (%) (Auto) 1 % (0-3) Neutrophils # (Auto) 2.0 x10^3uL (1.8-7.7) Lymphocytes # (Auto) 1.1 x10^3/uL (1.0-4.8) Monocytes # (Auto) 0.5 x10^3/uL (0.0-1.1) Eosinophils # (Auto) 0.3 x10^3/uL (0.0-0.7) Basophils # (Auto) 0.0 x10^3/uL (0.0-0.2) Sodium Level 139 mmol/L (136-145) Potassium Level 3.0 mmol/L (3.5-5.1) Chloride Level 100 mmol/L (98-107) Carbon Dioxide Level 27 mmol/L (21-32) Anion Gap 12 (6-14) Blood Urea Nitrogen 17 mg/dL (8-26) Creatinine 1.2 mg/dL (0.7-1.3) Estimated GFR (Cockcroft-Gault) 59.7 BUN/Creatinine Ratio 14 (6-20) Glucose Level 84 mg/dL (70-99) Calcium Level 8.7 mg/dL (8.5-10.1) Total Bilirubin 0.3 mg/dL (0.2-1.0) Aspartate Amino Transf (AST/SGOT) 23 U/L (15-37) Alanine Aminotransferase (ALT/SGPT) 16 U/L (16-63) Alkaline Phosphatase 88 U/L (46-116) Total Protein 6.5 g/dL (6.4-8.2) Albumin 2.6 g/dL (3.4-5.0) Albumin/Globulin Ratio 0.7 (1.0-1.7) VTE Prophylaxis Ordered VTE Prophylaxis Devices: Contraindicated VTE Pharmacological Prophylaxi: Yes Assessment/Plan Assessment/Plan impression 1. complicated left foot/ankle history since orthopedic surgery by Dr. Dalal in April 2018. 2.Open treatment of distal fibular fracture (lateral malleolus) with internal fixation 05/21/18 3.Open treatment of distal tibiofibular joint (syndesmosis) disruption, with internal fixation 05/21/18 4. Morbid obesity 5. HX CHF 6. HTN 7. ALCOHOL ABUSE HX 8. hx Right ankle post-surgery infection with Enterobacter and Enterococcus faecalis, plan consult DR DALAL BP CONTROL TELE HOME MEDS ALCOHOL WITHDRAWAL PROTOCOL admit ID CONSULT HIGH risk of alcohol withdrawal symptoms/ morbidity sec to same per my chart review 78 MIN PT EXAM, CHART REVIEW,> 50% of time with exam, chart review, pt care coordination Operative Note Operative Note Date of Procedure: -[id number]- -5--,- -2-0-1-8- May 04, 2018 ( corrected by JNV on 05/21/18) Pre-Op Diagnosis: * Displaced fracture of lateral malleolus of right fibula, initial encounter for closed fracture, ICD-10 S82.61XA * Sprain of tibiofibular ligament of right ankle initial encounter, ICD-10 S93.431A Post-Op Diagnosis: same Procedure: * Open treatment of distal fibular fracture (lateral malleolus) with internal fixation CPT 18383 * Open treatment of distal tibiofibular joint (syndesmosis) disruption, with internal fixation CPT 84807 Anesthesia Type: General Surgeon: Mello Dalal MD EBL: 50 mL DUKE DE PAZ MD Jul 29, 2018 10:09
--- NOTE | 2018-07-29 10:53 | PDOC4 ---
Operative Note Operative Note Date of Procedure: 07/29/2018 Pre-Op Diagnosis: Mechanical complications retained hardware right ankle. Open wound right ankle 2.5 cm x 5.5 cm Post-Op Diagnosis: Mechanical complications retained hardware right ankle. Open wound right ankle 2.5 cm x 5.5 cm Procedure: Hardware removal deep plates and screws right ankle. Layered wound closure 2.5 cm x 5.5 cm = 13.75 cm Surgeon(s): Ryan Dalal MD Anesthesia: General EBL: 25 mL Specimens Obtained: Cultures aerobic and anaerobic Complications: none Drains: none Tourniquet time: 41 minutes Indications for Procedure: The patient is a 73 year old with a previous ankle fracture. He developed an infection and open wound, which persistsdespite intravenous antibiotic treatment. He has an open wound which is difficult to heal. There were reports that the patients dog had licked the incision at some point postoperatively. Dr. Juares the infectious disease doctor has requested that the hardware be removed in order to clear the infection. I believe the fracture is healed enough to allow hardware removal. The patient and I discussed the risks, benefits and alternatives of surgery. Procedure in Detail: The patient was identified in the preoperative holding area. The correct right ankle was marked by me. The patient was taken to the operating room where general anesthetic was used. The patient was positioned supine on the operating table. Preoperative antibiotics were given intravenously. A timeout procedure was performed. A tourniquet was placed on the upper thigh. The limb was prepped sterilely and sterile drapes were applied. An Esmarch bandage was used to exsanguinate the limb and the tourniquet was inflated to 350 mmHg. The prior lateral incision was used incorporating the open wound and incision was made anterior to the granulation tissue. Sharp dissection was used and Bovie electrocautery was used only as needed for hemostasis. There is a mild amount of fibrinous tissue around the plate, and a culture was taken. There is no purulent drainage. The plate and all screws were identified, and removed with a screwdriver. Irregularities on the bone from the screw holes were freshened up with a rongeur. There appears to be a small amount of motion still at the fracture site, and further immobilization is likely needed. Copious saline irrigation was used. The incisions were closed with 2-0 PDS, 2-0 nylon, and #2 nylon. I was able to close the open wound which original size was 2.5 cm x 5.5 cm. An Acticoat dressing was placed followed by gauze and soft roll. The tourniquet was released. A sugar tong splint was applied. Needle and sponge counts were correct. There were no apparent complications. Layered RYAN DALAL MD Jul 29, 2018 10:53
[2018-07-29] MEDS ORDERED: POLYETHYLENE GLYCOL 3350 17 GM PACKET. PO PRN (11:00)
[2018-07-29] MEDS ORDERED: HYDROcodone/APAP 7.5/325MG 1 TAB TABLET PO PRN ×2 (11:00→13:00)
[2018-07-29] MEDS ORDERED: DEXTROSE 50% 25 GM / 50ML DISP.SYRIN. IV PRN (11:00)
[2018-07-29] MEDS ORDERED: MORPHINE SULFATE 4 MG/ML VIAL. IV PRN (11:00)
[2018-07-29] MEDS ORDERED: CALCIUM CARBONATE 500 MG TAB.CHEW PO PRN (11:00)
[2018-07-29] MEDS ORDERED: traMADol 50 MG TABLET PO PRN (11:00)
[2018-07-29] MEDS: fentaNYL PF VIAL 100 MCG/2 ML VIAL IV PRN ×2 (11:00→11:48)
[2018-07-29] MEDS ORDERED: IPRATRPIUM/ALBUTEROL 0.5/2.5MG 3 ML NEBU. ONE (11:31)
[2018-07-29] MEDS ORDERED: IPRATRPIUM/ALBUTEROL 0.5/2.5MG 3 ML NEBU. NEB ONE (11:45)
[2018-07-29] MEDS: IV 1/2 NORMAL SALINE 1,000 ML IV SCH (12:55)
[2018-07-29] MEDS ORDERED: ALBUTEROL SULFATE 2.5 MG/3 ML NEBU. INH PRN (13:00)
[2018-07-29] MEDS ORDERED: ATOR20TA58 PO (13:34)
[2018-07-29] MEDS: oxyCODONE IR 5 MG TABLET PO PRN (13:38)
--- NOTE | 2018-07-29 13:43 | RAD ---
Right ankle radiograph 07/29/2018 10:54 AM INDICATION: Postoperative hardware removal of the right ankle COMPARISON: Right ankle radiograph July 28, 2018. TECHNIQUE: 2 views the right ankle are provided. FINDINGS: Interval removal of lateral plate and screws as well as 2 syndesmotic screws from the distal fibula and tibia. Soft tissue defect along the lateral joint space is in keeping with recent postoperative status. Ankle mortise appears congruent. Tibial plafond and talar dome are intact. Enthesophytes are present. There may be an ossific fragment along the posterior margin of the distal tibia versus vascular calcification measuring 2.0 cm. Overlying cast material limits evaluation of fine osseous detail. Vascular calcifications are present. IMPRESSION: Postoperative changes from hardware removal of the distal fibula, as above. Electronically signed by: Melony Loera MD (07/29/2018 1:40 PM) [id number]
--- NOTE | 2018-07-29 14:00 | PDOC ---
Infectious Disease Note Subjective Subjective pt known to us, was taken to OR for hardware removal, wound was not looking good last wk when he was in office, and I d/w dr Dalal. pt is after surgery, feeling good records reviewed ROS ROS no n/v/d/sob PMH reviewed SH reviewed Allergy Reviewed Vital Sign Vital Signs Vital Signs Date Time Temp Pulse Resp B/P (MAP) Pulse Ox O2 Delivery O2 Flow Rate FiO2 07/29/18 13:38 16 Room Air 07/29/18 11:48 95 07/29/18 11:33 98.5 76 146/83 98.5 07/29/18 11:00 10.0 Physical Exam PHYSICAL EXAM GENERAL: Alert, oriented x 3 male, in no acute distress. HEENT: Normocephalic, atraumatic, anicteric. NECK: Supple. No JVD. LUNGS: Clear bilaterally. HEART: S1, S2 regular. ABDOMEN: Benign. EXTREMITIES: No edema, no cyanosis. DERMATOLOGIC: The right lateral ankle incision with dressing in place. No purulence clean. No fluctuance. No hardware visible. CENTRAL NERVOUS SYSTEM: Alert and oriented x 3. Grossly nonfocal. MUSCULOSKELETAL: Bilateral knee replacement. ankle dressing not opened Labs Lab Laboratory Tests Test 07/29/18 07:30 White Blood Count 4.0 x10^3/uL (4.0-11.0) Red Blood Count 3.28 x10^6/uL (4.30-5.70) Hemoglobin 9.0 g/dL (13.0-17.5) Hematocrit 28.4 % (39.0-53.0) Mean Corpuscular Volume 87 fL (79-100) Mean Corpuscular Hemoglobin 28 pg (25-35) Mean Corpuscular Hemoglobin Concent 32 g/dL (31-37) Red Cell Distribution Width 18.0 % (11.5-14.5) Platelet Count 301 x10^3/uL (140-400) Neutrophils (%) (Auto) 51 % (31-73) Lymphocytes (%) (Auto) 28 % (24-48) Monocytes (%) (Auto) 12 % (0-9) Eosinophils (%) (Auto) 8 % (0-3) Basophils (%) (Auto) 1 % (0-3) Neutrophils # (Auto) 2.0 x10^3uL (1.8-7.7) Lymphocytes # (Auto) 1.1 x10^3/uL (1.0-4.8) Monocytes # (Auto) 0.5 x10^3/uL (0.0-1.1) Eosinophils # (Auto) 0.3 x10^3/uL (0.0-0.7) Basophils # (Auto) 0.0 x10^3/uL (0.0-0.2) Sodium Level 139 mmol/L (136-145) Potassium Level 3.0 mmol/L (3.5-5.1) Chloride Level 100 mmol/L (98-107) Carbon Dioxide Level 27 mmol/L (21-32) Anion Gap 12 (6-14) Blood Urea Nitrogen 17 mg/dL (8-26) Creatinine 1.2 mg/dL (0.7-1.3) Estimated GFR (Cockcroft-Gault) 59.7 BUN/Creatinine Ratio 14 (6-20) Glucose Level 84 mg/dL (70-99) Calcium Level 8.7 mg/dL (8.5-10.1) Total Bilirubin 0.3 mg/dL (0.2-1.0) Aspartate Amino Transf (AST/SGOT) 23 U/L (15-37) Alanine Aminotransferase (ALT/SGPT) 16 U/L (16-63) Alkaline Phosphatase 88 U/L (46-116) Total Protein 6.5 g/dL (6.4-8.2) Albumin 2.6 g/dL (3.4-5.0) Albumin/Globulin Ratio 0.7 (1.0-1.7) Objective Assessment 1. Lactic acidosis, last wk, resolved 2. Right ankle post-surgery infection with Enterobacter and Enterococcus s/p hardware removal 07/29/17 faecalis, on IV Invanz, and dapto 3. Right ankle fracture. 4. Coronary artery disease. 5. Hypotension with history of underlying hypertension.resolved 6. Congestive heart failure. Plan Plan of Care meropenem and dapto supportive care d/w dr Dalal d/w MARITO MCKEON MD Jul 29, 2018 14:00
[2018-07-29] MEDS: LORazepam 1 MG TABLET PO SCH ×2 (14:01→21:19)
[2018-07-29 14:05] LABS: DIRECT BILIRUBIN 0.1 mg/dL (0.0-0.2)
[2018-07-29] MEDS ORDERED: MULTIVIT INFUSN,ADULT 4,VIT K 10 ML, THIAMINE INJ 100 MG, FOLIC ACID INJ 1 MG in IV NOR... IV ONE (14:30)
[2018-07-29] MEDS: DAPTOmycin (GENERIC) IVPB 680 MG in IV NORMAL SALINE 50ML 50 ML IV SCH (14:53)
[2018-07-29] MEDS ORDERED: ANTI-COAG MONITOR BY PHARMACY. MC PRN (15:00)
[2018-07-29 15:30] LABS: BARBITURATES NEG (NEG); BENZODIAZEPINES NEG (NEG); CANNABINOIDS NEG (NEG); COCAINE NEG (NEG); METHADONE NEG (NEG); OPIATES POS (NEG); PHENCYCLIDINE NEG (NEG)
[2018-07-29 15:36] LABS: AMPHETAMINE/METHAMPHETAMINE NEG (NEG)
[2018-07-29] MEDS: MEROPENEM 1 GM in IV NORMAL SALINE 100ML 100 ML IV SCH ×2 (15:45→22:29)
[2018-07-29] MEDS: RIVAROXABAN 15 MG TABLET. PO SCH (16:46)
[2018-07-29] MEDS: FERROUS SULFATE 325 MG TABLET. PO SCH (21:19)
[2018-07-30] MEDS: LORazepam 1 MG TABLET PO SCH ×4 (02:00→20:00)
[2018-07-30 03:00] VITALS: BP 162/97
[2018-07-30] MEDS: IV 1/2 NORMAL SALINE 1,000 ML IV SCH (03:20)
[2018-07-30] MEDS ORDERED: MAGNESIUM HYDROXIDE 2,400 MG/30 ML ORAL.SUSP. PO PRN (06:00)
[2018-07-30] MEDS: MEROPENEM 1 GM in IV NORMAL SALINE 100ML 100 ML IV SCH ×3 (06:01→22:11)
[2018-07-30 07:00] VITALS: BP 125/64
--- NOTE | 2018-07-30 08:45 | PDOC ---
PROGRESS NOTES Subjective Subjective No complaints. Resting in recliner. Objective Vital Signs Vital Signs Date Time Temp Pulse Resp B/P (MAP) Pulse Ox O2 Delivery O2 Flow Rate FiO2 07/30/18 07:00 98.2 84 18 125/64 (84) 99 Room Air 98.2 07/29/18 11:00 10.0 Physical Exam Splint and underlying dressing are bloody but intact. Good AROM, sensation and cap refill at toes. Labs Laboratory Tests Test 07/29/18 07:30 07/29/18 15:05 White Blood Count 4.0 x10^3/uL (4.0-11.0) Red Blood Count 3.28 x10^6/uL (4.30-5.70) Hemoglobin 9.0 g/dL (13.0-17.5) Hematocrit 28.4 % (39.0-53.0) Mean Corpuscular Volume 87 fL (79-100) Mean Corpuscular Hemoglobin 28 pg (25-35) Mean Corpuscular Hemoglobin Concent 32 g/dL (31-37) Red Cell Distribution Width 18.0 % (11.5-14.5) Platelet Count 301 x10^3/uL (140-400) Neutrophils (%) (Auto) 51 % (31-73) Lymphocytes (%) (Auto) 28 % (24-48) Monocytes (%) (Auto) 12 % (0-9) Eosinophils (%) (Auto) 8 % (0-3) Basophils (%) (Auto) 1 % (0-3) Neutrophils # (Auto) 2.0 x10^3uL (1.8-7.7) Lymphocytes # (Auto) 1.1 x10^3/uL (1.0-4.8) Monocytes # (Auto) 0.5 x10^3/uL (0.0-1.1) Eosinophils # (Auto) 0.3 x10^3/uL (0.0-0.7) Basophils # (Auto) 0.0 x10^3/uL (0.0-0.2) Sodium Level 139 mmol/L (136-145) Potassium Level 3.0 mmol/L (3.5-5.1) Chloride Level 100 mmol/L (98-107) Carbon Dioxide Level 27 mmol/L (21-32) Anion Gap 12 (6-14) Blood Urea Nitrogen 17 mg/dL (8-26) Creatinine 1.2 mg/dL (0.7-1.3) Estimated GFR (Cockcroft-Gault) 59.7 BUN/Creatinine Ratio 14 (6-20) Glucose Level 84 mg/dL (70-99) Calcium Level 8.7 mg/dL (8.5-10.1) Total Bilirubin 0.3 mg/dL (0.2-1.0) Direct Bilirubin 0.1 mg/dL (0.0-0.2) Aspartate Amino Transf (AST/SGOT) 23 U/L (15-37) Alanine Aminotransferase (ALT/SGPT) 16 U/L (16-63) Alkaline Phosphatase 88 U/L (46-116) Total Protein 6.5 g/dL (6.4-8.2) Albumin 2.6 g/dL (3.4-5.0) Albumin/Globulin Ratio 0.7 (1.0-1.7) Urine Opiates Screen Pos (NEG) Urine Methadone Screen Neg (NEG) Urine Barbiturates Neg (NEG) Urine Phencyclidine Screen Neg (NEG) Urine Amphetamine/Methamphetamine Neg (NEG) Urine Benzodiazepines Screen Neg (NEG) Urine Cocaine Screen Neg (NEG) Urine Cannabinoids Screen Neg (NEG) Urine Ethyl Alcohol Pos (NEG) Laboratory Tests Test 07/29/18 15:05 Urine Opiates Screen Pos (NEG) Urine Methadone Screen Neg (NEG) Urine Barbiturates Neg (NEG) Urine Phencyclidine Screen Neg (NEG) Urine Amphetamine/Methamphetamine Neg (NEG) Urine Benzodiazepines Screen Neg (NEG) Urine Cocaine Screen Neg (NEG) Urine Cannabinoids Screen Neg (NEG) Urine Ethyl Alcohol Pos (NEG) Imaging X-rays show intact ankle mortise. Fine detail of fracture site is obscured, but I suspect this is incompletely healed. Assessment Assessment POD 1 after hardware removal and wound closure, infected ankle fracture with prior ORIF Plan Plan of Care Continue antibiotics. I plan a wound check and short leg cast application tomorrow. Intra-operative cultures are pending. RYAN KHAN MD Jul 30, 2018 08:45
[2018-07-30] MEDS ORDERED: NON FORMULARY ITEM (Losartan/Hydrochlorothiazide (Losartan-Hctz 100-25 Mg Tab) 1 TAB) PO SCH (09:00)
[2018-07-30] MEDS: THIAMINE 100 MG TABLET. PO SCH (09:02)
[2018-07-30] MEDS: ASPIRIN 325 MG TABLET PO SCH (09:02)
[2018-07-30] MEDS: SENNOSIDES/DOCUSATE 8.6/50MG TABLET. PO SCH (09:02)
[2018-07-30] MEDS: hydroCHLOROthiazide 25 MG TABLET PO SCH (09:02)
[2018-07-30] MEDS: LOSARTAN POTASSIUM 50 MG TABLET. PO SCH (09:02)
[2018-07-30] MEDS: RIVAROXABAN 15 MG TABLET. PO SCH ×2 (09:03→17:14)
[2018-07-30] MEDS: MULTIVITAMIN with MINERAL TABLET. PO SCH (09:03)
[2018-07-30] MEDS: FOLIC ACID 1 MG TABLET. PO SCH (09:03)
[2018-07-30] MEDS: FERROUS SULFATE 325 MG TABLET. PO SCH ×2 (09:03→20:47)
[2018-07-30] MEDS: oxyCODONE IR 5 MG TABLET PO PRN (09:37)
--- NOTE | 2018-07-30 09:39 | PDOC ---
Infectious Disease Note Subjective Subjective pt known to us, was taken to OR for hardware removal, wound was not looking good last wk when he was in office, and I d/w dr Dalal. pt is after surgery, feeling good records reviewed ROS ROS no n/v/d/sob Vital Sign Vital Signs Vital Signs Date Time Temp Pulse Resp B/P (MAP) Pulse Ox O2 Delivery O2 Flow Rate FiO2 07/30/18 09:37 16 Room Air 07/30/18 09:02 84 125/64 07/30/18 07:00 98.2 99 98.2 07/29/18 11:00 10.0 Physical Exam PHYSICAL EXAM GENERAL: Alert, oriented x 3 male, in no acute distress. HEENT: Normocephalic, atraumatic, anicteric. NECK: Supple. No JVD. LUNGS: Clear bilaterally. HEART: S1, S2 regular. ABDOMEN: Benign. EXTREMITIES: No edema, no cyanosis. DERMATOLOGIC: The right lateral ankle incision with dressing in place. No purulence clean. No fluctuance. No hardware visible. CENTRAL NERVOUS SYSTEM: Alert and oriented x 3. Grossly nonfocal. MUSCULOSKELETAL: Bilateral knee replacement. ankle dressing not opened Labs Lab Laboratory Tests Test 07/29/18 15:05 Urine Opiates Screen Pos (NEG) Urine Methadone Screen Neg (NEG) Urine Barbiturates Neg (NEG) Urine Phencyclidine Screen Neg (NEG) Urine Amphetamine/Methamphetamine Neg (NEG) Urine Benzodiazepines Screen Neg (NEG) Urine Cocaine Screen Neg (NEG) Urine Cannabinoids Screen Neg (NEG) Urine Ethyl Alcohol Pos (NEG) Objective Assessment 1. Lactic acidosis, last wk, resolved 2. Right ankle post-surgery infection with Enterobacter and Enterococcus s/p hardware removal 07/29/17 faecalis, on IV Invanz, and dapto 3. Right ankle fracture. 4. Coronary artery disease. 5. Hypotension with history of underlying hypertension.resolved 6. Congestive heart failure. Plan Plan of Care meropenem and dapto supportive care d/w dr Dalal d/w MARITO MCKEON MD Jul 30, 2018 09:39
--- NOTE | 2018-07-30 09:52 | PDOC ---
PROGRESS NOTES Chief Complaint Chief Complaint 1. Lactic acidosis, last wk, resolved 2. Right ankle post-surgery infection with Enterobacter and Enterococcus s/p hardware removal 07/29/17 faecalis, on IV Invanz, and dapto 3. Right ankle fracture. 4. Coronary artery disease. 5. Hypotension with history of underlying hypertension.resolved 6. Congestive heart failure.stable 7. NOn injury fall x 2 (07/29/18) History of Present Illness History of Present Illness Called by 2 RNs last night for noninjury fall Patient feels fine Patient does not want SNU unit and PT recommended and just wants to go home with home health and Known to ID and orthopedic service [id number] on right leg supposed to be Plan CPM Still on IV antibiotics per ID and banana bag-he drinks heavy at home May DC normal saline at 75 dw RN Vitals Vitals Vital Signs Date Time Temp Pulse Resp B/P (MAP) Pulse Ox O2 Delivery O2 Flow Rate FiO2 07/30/18 09:37 16 Room Air 07/30/18 09:02 84 125/64 07/30/18 07:00 98.2 99 98.2 07/29/18 11:00 10.0 Physical Exam Physical Exam GENERAL: Alert, oriented x 3 male, in no acute distress. HEENT: Normocephalic, atraumatic, anicteric. NECK: Supple. No JVD. LUNGS: Clear bilaterally. HEART: S1, S2 regular. ABDOMEN: Benign. EXTREMITIES: No edema, no cyanosis. DERMATOLOGIC: The right lateral ankle incision with dressing in place. No purulence clean. No fluctuance. No hardware visible. CENTRAL NERVOUS SYSTEM: Alert and oriented x 3. Grossly nonfocal. MUSCULOSKELETAL: Bilateral knee replacement. ankle dressing not opened General: Alert, Oriented X3, Cooperative, mild distress Lungs: Clear Abdomen: Normal bowel sounds, Soft Extremities: No cyanosis, Normal pulses Skin: No significant lesion Labs LABS Laboratory Tests Test 07/29/18 15:05 Urine Opiates Screen Pos (NEG) Urine Methadone Screen Neg (NEG) Urine Barbiturates Neg (NEG) Urine Phencyclidine Screen Neg (NEG) Urine Amphetamine/Methamphetamine Neg (NEG) Urine Benzodiazepines Screen Neg (NEG) Urine Cocaine Screen Neg (NEG) Urine Cannabinoids Screen Neg (NEG) Urine Ethyl Alcohol Pos (NEG) Review of Systems Review of Systems A 14 point ROS was completed with the following noted as positive: Other systems reviewed and negative. \CONSTITUTIONAL: No fever or chills EYES: No recent changes SKIN: No rash or itching CARDIOVASCULAR: No chest pain, syncope, palpitations, or edema RESPIRATORY: No SOB or cough GASTROINTESTINAL: No nausea, vomiting or abdominal pain NEUROLOGICAL: No headaches or weakness ENDOCRINE: No cold or heat intolerance GENITOURINARY: No urgency or frequency of urination MUSCULOSKELETAL: No back pain or joint pain LYMPHATICS: No enlarged lymph nodes PSYCHIATRIC: No anxiety or depression Comment Review of Relevant I have reviewed the following items carl (where applicable) has been applied. Labs Laboratory Tests Test 07/29/18 07:30 07/29/18 15:05 White Blood Count 4.0 x10^3/uL (4.0-11.0) Red Blood Count 3.28 x10^6/uL (4.30-5.70) Hemoglobin 9.0 g/dL (13.0-17.5) Hematocrit 28.4 % (39.0-53.0) Mean Corpuscular Volume 87 fL (79-100) Mean Corpuscular Hemoglobin 28 pg (25-35) Mean Corpuscular Hemoglobin Concent 32 g/dL (31-37) Red Cell Distribution Width 18.0 % (11.5-14.5) Platelet Count 301 x10^3/uL (140-400) Neutrophils (%) (Auto) 51 % (31-73) Lymphocytes (%) (Auto) 28 % (24-48) Monocytes (%) (Auto) 12 % (0-9) Eosinophils (%) (Auto) 8 % (0-3) Basophils (%) (Auto) 1 % (0-3) Neutrophils # (Auto) 2.0 x10^3uL (1.8-7.7) Lymphocytes # (Auto) 1.1 x10^3/uL (1.0-4.8) Monocytes # (Auto) 0.5 x10^3/uL (0.0-1.1) Eosinophils # (Auto) 0.3 x10^3/uL (0.0-0.7) Basophils # (Auto) 0.0 x10^3/uL (0.0-0.2) Sodium Level 139 mmol/L (136-145) Potassium Level 3.0 mmol/L (3.5-5.1) Chloride Level 100 mmol/L (98-107) Carbon Dioxide Level 27 mmol/L (21-32) Anion Gap 12 (6-14) Blood Urea Nitrogen 17 mg/dL (8-26) Creatinine 1.2 mg/dL (0.7-1.3) Estimated GFR (Cockcroft-Gault) 59.7 BUN/Creatinine Ratio 14 (6-20) Glucose Level 84 mg/dL (70-99) Calcium Level 8.7 mg/dL (8.5-10.1) Total Bilirubin 0.3 mg/dL (0.2-1.0) Direct Bilirubin 0.1 mg/dL (0.0-0.2) Aspartate Amino Transf (AST/SGOT) 23 U/L (15-37) Alanine Aminotransferase (ALT/SGPT) 16 U/L (16-63) Alkaline Phosphatase 88 U/L (46-116) Total Protein 6.5 g/dL (6.4-8.2) Albumin 2.6 g/dL (3.4-5.0) Albumin/Globulin Ratio 0.7 (1.0-1.7) Urine Opiates Screen Pos (NEG) Urine Methadone Screen Neg (NEG) Urine Barbiturates Neg (NEG) Urine Phencyclidine Screen Neg (NEG) Urine Amphetamine/Methamphetamine Neg (NEG) Urine Benzodiazepines Screen Neg (NEG) Urine Cocaine Screen Neg (NEG) Urine Cannabinoids Screen Neg (NEG) Urine Ethyl Alcohol Pos (NEG) Laboratory Tests Test 07/29/18 15:05 Urine Opiates Screen Pos (NEG) Urine Methadone Screen Neg (NEG) Urine Barbiturates Neg (NEG) Urine Phencyclidine Screen Neg (NEG) Urine Amphetamine/Methamphetamine Neg (NEG) Urine Benzodiazepines Screen Neg (NEG) Urine Cocaine Screen Neg (NEG) Urine Cannabinoids Screen Neg (NEG) Urine Ethyl Alcohol Pos (NEG) Medications Current Medications Ondansetron HCl (Zofran) 4 mg PRN Q6HRS PRN IV NAUSEA/VOMITING; Start 07/29/18 at 07:00; Stop 07/29/18 at 20:00; Status DC Fentanyl Citrate (Fentanyl 2ml Vial) 25 mcg PRN Q5MIN PRN IV MILD PAIN; Start 07/29/18 at 07:00; Stop 07/29/18 at 20:00; Status DC Fentanyl Citrate (Fentanyl 2ml Vial) 50 mcg PRN Q5MIN PRN IV MODERATE TO SEVERE PAIN Last administered on 07/29/18at 11:48; Start 07/29/18 at 07:00; Stop at 20:00; Status DC Morphine Sulfate (Morphine Sulfate) 1 mg PRN Q10MIN PRN IV SEVERE PAIN; Start 07/29/18 at 07:00; Stop 07/29/18 at 20:00; Status DC Ringer's Solution 1,000 ml @ 30 mls/hr Q24H IV Last administered on 07/29/18at 07:00; Start 07/29/18 at 07:00; Stop 07/29/18 at 18:59; Status DC Hydromorphone HCl (Dilaudid) 0.5 mg PRN Q10MIN PRN IV SEV PAIN, Second choice; Start 07/29/18 at 07:00; Stop 07/29/18 at 20:00; Status DC Prochlorperazine Edisylate (Compazine) 5 mg PACU PRN PRN IV NAUSEA, MRX1; Start 07/29/18 at 07:00; Stop 07/29/18 at 20:00; Status DC Cefazolin Sodium/ Dextrose 50 ml @ 100 mls/hr 1X PREOP PRN IV PRIOR TO PROCEDURE Last administered on 07/29/18at 09:20; Start 07/29/18 at 06:00; Stop 07/29 at 18:00; Status DC Bupivacaine HCl/ Epinephrine Bitart (Sensorcaine-Epi 0.25%-1:[id number] Mpf) 30 ml STK-MED ONCE .ROUTE ; Start 07/29/18 at 06:11; Stop 07/29/18 at 07:12; Status DC Midazolam HCl (Versed) 2 mg STK-MED ONCE .ROUTE ; Start 07/29/18 at 08:45; Stop 07/29/18 at 08:46; Status DC Fentanyl Citrate (Fentanyl 2ml Vial) 100 mcg STK-MED ONCE .ROUTE ; Start at 08:45; Stop 07/29/18 at 08:46; Status DC Sevoflurane (Ultane) 60 ml STK-MED ONCE IH ; Start 07/29/18 at 08:45; Stop at 08:46; Status DC Dexamethasone Sodium Phosphate (Decadron) 20 mg STK-MED ONCE .ROUTE ; Start 07/29 at 08:45; Stop 07/29/18 at 08:46; Status DC Propofol 20 ml @ As Directed STK-MED ONCE IV ; Start 07/29/18 at 08:45; Stop 07/29 at 08:46; Status DC Lidocaine HCl (Lidocaine Pf 2% Vial) 5 ml STK-MED ONCE .ROUTE ; Start 07/29/18 at 08:45; Stop 07/29/18 at 08:46; Status DC Ondansetron HCl (Zofran) 4 mg STK-MED ONCE .ROUTE ; Start 07/29/18 at 08:45; Stop 07/29/18 at 08:46; Status DC Ketorolac Tromethamine (Toradol For Or Only) 30 mg STK-MED ONCE INJ ; Start 07/29 at 08:46; Stop 07/29/18 at 08:47; Status DC Famotidine (Pepcid Vial) 20 mg STK-MED ONCE .ROUTE ; Start 07/29/18 at 08:55; Stop 07/29/18 at 08:56; Status DC Ephedrine Sulfate (ePHEDrine PF IN SALINE SYRINGE) 50 mg STK-MED ONCE IV ; Start 07/29/18 at 09:31; Stop 07/29/18 at 09:32; Status DC Fentanyl Citrate (Fentanyl 2ml Vial) 100 mcg STK-MED ONCE .ROUTE ; Start at 10:53; Stop 07/29/18 at 10:54; Status DC Oxycodone HCl (Roxicodone) 5 mg PRN Q3HRS PRN PO PAIN Last administered on 07/30at 09:37; Start 07/29/18 at 11:00 Morphine Sulfate (Morphine Sulfate) 2 mg PRN Q1HR PRN IV PAIN; Start 07/29/18 at 11:00 Fentanyl Citrate (Fentanyl 2ml Vial) 25 mcg PRN Q1HR PRN IV PAIN; Start at 11:00 Senna/Docusate Sodium (Senna Plus) 1 tab DAILY PO Last administered on at 09:02; Start 07/30/18 at 09:00 Polyethylene Glycol (miraLAX PACKET) 17 gm PRN DAILY PRN PO CONSTIPATION; Start 07/29/18 at 11:00 Sodium Chloride 1,000 ml @ 75 mls/hr [id number] IV ; Start 07/29/18 at 14:00 Ondansetron HCl (Zofran) 4 mg PRN Q4HRS PRN IV NAUSEA/VOMITING; Start 07/29/18 at 11:00 Calcium Carbonate/ Glycine (Tums) 500 mg PRN QID PRN PO INDIGESTION; Start 07/29 at 11:00 Aspirin (Carmen Aspirin) 325 mg DAILYWBKFT PO Last administered on 07/30/18at 09: 02; Start 07/30/18 at 08:00 Magnesium Hydroxide (Milk Of Magnesia) 2,400 mg 1X PRN PRN PO CONSTIPATION; Start 07/30/18 at 06:00; Stop 07/31/18 at 05:59 Bisacodyl (Dulcolax Supp) 10 mg 1X PRN PRN TN CONSTIPATION; Start 07/30/18 at 16:00; Stop 07/31/18 at 15:59 Acetaminophen/ Hydrocodone Bitart (Lortab 7.5/325) 1 tab PRN Q4HRS PRN PO PAIN ; Start 07/29/18 at 11:00 Morphine Sulfate (Morphine Sulfate) 4 mg PRN Q2HR PRN IV PAIN; Start 07/29/18 at 11:00 Acetaminophen/ Hydrocodone Bitart (Lortab 7.5/325) 2 tab PRN Q4HRS PRN PO PAIN ; Start 07/29/18 at 11:00 Dextrose (Dextrose 50%-Water Syringe) 12.5 gm PRN Q15MIN PRN IV SEE COMMENTS; Start 07/29/18 at 11:00 Cefazolin Sodium/ Dextrose 50 ml @ 100 mls/hr Q6H IV ; Start 07/29/18 at 15:30; Stop 07/29/18 at 15:30; Status DC Ergocalciferol (Vitamin D2) 50,000 unit Tu PO ; Start 08/05/18 at 09:00 Ferrous Sulfate (Feosol) 325 mg BID PO Last administered on 07/30/18at 09:03; Start 07/29/18 at 21:00 Rivaroxaban (Xarelto) 15 mg BIDWMEALS PO Last administered on 07/30/18at 09:03; Start 07/29/18 at 17:00 Tramadol HCl (Ultram) 50 mg PRN TID PRN PO MILD PAIN; Start 07/29/18 at 11:00 Non-Formulary Medication (Losartan/ Hydrochlorothiazide (Losartan-Hctz 100-25 Mg Tab)) 1 tab DAILY PO ; Start 07/30/18 at 09:00; Status UNV Albuterol/ Ipratropium (Duoneb) 3 ml STK-MED ONCE .ROUTE ; Start 07/29/18 at 11: 31; Stop 07/29/18 at 11:32; Status DC Albuterol/ Ipratropium (Duoneb) 3 ml 1X ONCE NEB ; Start 07/29/18 at 11:45; Stop 07/29/18 at 12:28; Status DC Losartan Potassium (Cozaar) 100 mg DAILY PO Last administered on 07/30/18at 09: 02; Start 07/30/18 at 09:00 Hydrochlorothiazide (Hydrodiuril) 25 mg DAILY PO Last administered on at 09:02; Start 07/30/18 at 09:00 Albuterol Sulfate (Ventolin Neb Soln) 2.5 mg PRN Q6HRS PRN INH SHORTNESS OF BREATH; Start 07/29/18 at 13:00 Acetaminophen/ Hydrocodone Bitart (Lortab 7.5/325) 1 tab PRN Q4HRS PRN PO PAIN MILD/MOD 1ST CHOICE; Start 07/29/18 at 13:00; Status UNV Multivitamins 10 ml/Thiamine HCl 100 mg/Folic Acid 1 mg/Sodium Chloride 1,011.2 ml @ 100 mls/ hr 1X ONCE IV Last administered on 07/29/18at 14:29; Start at 14:30; Stop 07/30/18 at 00:36; Status DC Multivitamins (Thera M Plus) 1 tab DAILY PO Last administered on 07/30/18at 09: 03; Start 07/30/18 at 09:00 Folic Acid (Folic Acid) 1 mg DAILY PO Last administered on 07/30/18at 09:03; Start 07/30/18 at 09:00 Lorazepam (Ativan) 2 mg Q6H PO Last administered on 07/30/18at 09:02; Start 07/29 at 14:00; Stop 07/30/18 at 20:01 Thiamine Mononitrate (Vitamin B-1) 100 mg DAILY PO Last administered on at 09:02; Start 07/30/18 at 09:00 Daptomycin 680 mg/ Sodium Chloride 50 ml @ 100 mls/hr Q24H IV Last administered on 07/29/18at 14:53; Start 07/29/18 at 15:00 Meropenem 1 gm/ Sodium Chloride 100 ml @ 200 mls/hr Q8HRS IV Last administered on 07/30/18at 06:01; Start 07/29/18 at 15:00 Info (Anti-Coagulation Monitoring By Pharmacy) 1 each PRN DAILY PRN MC SEE COMMENTS; Start 07/29/18 at 15:00 Active Scripts Active Xarelto (Rivaroxaban) 10 Mg Tablet 10 Mg PO BID Hydrocodone-Apap 7.5-325 (Hydrocodone Bit/Acetaminophen) 1 Tab Tablet 1 Tab PO PRN Q4HRS PRN MDD 1 10 Days Vitamin D2 (Ergocalciferol (Vitamin D2)) 50,000 Unit Capsule 50,000 Unit PO TU 7 Days Reported Atorvastatin Calcium 20 Mg Tablet 20 Mg PO HS PRN Tramadol Hcl 50 Mg Tablet 50 Mg PO PRN TID PRN Losartan-Hctz 100-25 Mg Tab (Losartan/Hydrochlorothiazide) 1 Each Tablet 1 Tab PO DAILY Ferrous Sulfate 325 Mg Tablet 325 Mg PO BID Proair Hfa Inhaler (Albuterol Sulfate) 8.5 Gm Hfa.aer.ad 2 Puff INH PRN Q6HRS PRN Vitals/I & O Vital Sign - Last 24 Hours 07/29/18 07/29/18 07/29/18 07/29/18 10:48 10:48 11:00 11:03 Temp 98.5 98.5 98.5 98.5 Pulse 78 78 Resp 15 15 15 B/P (MAP) 132/76 133/73 Pulse Ox 96 100 95 O2 Delivery Room Air Room Air Room Air Room Air O2 Flow Rate 10.0 07/29/18 07/29/18 07/29/18 07/29/18 11:18 11:33 11:48 12:00 Temp 98.5 98.5 98.5 98.5 Pulse 76 76 Resp 15 15 15 B/P (MAP) 155/80 146/83 Pulse Ox 95 95 95 O2 Delivery Room Air Room Air Room Air Room Air 07/29/18 07/29/18 07/29/18 07/29/18 13:06 13:21 13:35 13:38 Pulse 111 108 102 Resp 16 B/P (MAP) 140/83 (102) 147/97 (114) 153/90 (111) Pulse Ox 93 92 O2 Delivery Room Air 07/29/18 07/29/18 07/29/18 07/29/18 14:06 14:22 14:40 14:50 Pulse 105 112 104 102 B/P (MAP) 135/83 (100) 170/100 (123) 163/90 (114) 159/90 (113) Pulse Ox 85 86 07/29/18 07/29/18 07/29/18 07/29/18 14:57 15:00 15:21 15:51 Temp 97.8 97.8 Pulse 106 95 Resp 16 16 B/P (MAP) 163/90 (114) 131/78 (95) Pulse Ox 93 95 O2 Delivery Room Air Room Air Room Air 07/29/18 07/29/18 07/29/18 07/30/18 19:18 20:00 23:00 03:00 Temp 98.4 97.4 97.5 98.4 97.4 97.5 Pulse 114 86 75 Resp 16 18 18 B/P (MAP) 151/92 (111) 151/86 (107) 162/97 (118) Pulse Ox 96 97 O2 Delivery Room Air Room Air Room Air Room Air 07/30/18 07/30/18 07/30/18 07:00 09:02 09:37 Temp 98.2 98.2 Pulse 84 84 Resp 18 16 B/P (MAP) 125/64 (84) 125/64 Pulse Ox 99 O2 Delivery Room Air Room Air Intake and Output 07/29/18 07/29/18 07/30/18 15:00 23:00 07:00 Intake Total 1050 ml 100 ml Output Total 10 ml 0 ml Balance 1040 ml 100 ml 0 ml JAZMIN OSULLIVAN MD Jul 30, 2018 09:51
[2018-07-30 11:28] VITALS: BP 146/75
[2018-07-30] MEDS ORDERED: POTASSIUM CHLORIDE 20 MEQ TABLET.ER. PO ONE (14:30)
[2018-07-30 15:08] VITALS: BP 140/68
[2018-07-30] MEDS ORDERED: BISACODYL 10 MG SUPP.RECT. PR PRN (16:00)
[2018-07-30] MEDS: DAPTOmycin (GENERIC) IVPB 680 MG in IV NORMAL SALINE 50ML 50 ML IV SCH (17:14)
[2018-07-30 19:00] VITALS: BP 141/69
[2018-07-30] MEDS: LACTOBACILLUS RHAMNOSUS GG 1 CAPSULE. PO SCH (20:47)
[2018-07-30 23:00] VITALS: BP 141/68
[2018-07-31 03:00] VITALS: BP 157/92
[2018-07-31] MEDS: MEROPENEM 1 GM in IV NORMAL SALINE 100ML 100 ML IV SCH ×3 (06:13→21:54)
[2018-07-31 07:00] VITALS: BP 163/91
[2018-07-31 08:23] LABS: CALCIUM 8.8 mg/dL (8.5-10.1); CREATININE 0.8 mg/dL (0.7-1.3); GFR 95.3; POTASSIUM 3.4 mmol/L (3.5-5.1)
[2018-07-31] MEDS: RIVAROXABAN 15 MG TABLET. PO SCH ×2 (08:35→16:40)
[2018-07-31] MEDS: FOLIC ACID 1 MG TABLET. PO SCH (08:35)
[2018-07-31] MEDS: THIAMINE 100 MG TABLET. PO SCH (08:35)
[2018-07-31] MEDS: FERROUS SULFATE 325 MG TABLET. PO SCH ×2 (08:35→20:26)
[2018-07-31] MEDS: SENNOSIDES/DOCUSATE 8.6/50MG TABLET. PO SCH (08:35)
[2018-07-31] MEDS: LOSARTAN POTASSIUM 50 MG TABLET. PO SCH (08:35)
[2018-07-31] MEDS: MULTIVITAMIN with MINERAL TABLET. PO SCH (08:35)
[2018-07-31] MEDS: hydroCHLOROthiazide 25 MG TABLET PO SCH (08:35)
[2018-07-31] MEDS: ASPIRIN 325 MG TABLET PO SCH (08:36)
[2018-07-31] MEDS: HYDROcodone/APAP 7.5/325MG 1 TAB TABLET PO PRN ×2 (08:36→16:44)
[2018-07-31] MEDS: LACTOBACILLUS RHAMNOSUS GG 1 CAPSULE. PO SCH ×2 (08:36→20:26)
--- NOTE | 2018-07-31 09:30 | PDOC ---
Infectious Disease Note Subjective Subjective pt is feeling good, though confused at times ROS ROS no n/v/d/sob/fever Vital Sign Vital Signs Vital Signs Date Time Temp Pulse Resp B/P (MAP) Pulse Ox O2 Delivery O2 Flow Rate FiO2 07/31/18 08:36 93 Room Air 07/31/18 08:35 89 163/91 07/31/18 07:00 98.2 14 98.2 Physical Exam PHYSICAL EXAM GENERAL: Alert, oriented x 3 male, in no acute distress. HEENT: Normocephalic, atraumatic, anicteric. NECK: Supple. No JVD. LUNGS: Clear bilaterally. HEART: S1, S2 regular. ABDOMEN: Benign. EXTREMITIES: No edema, no cyanosis. DERMATOLOGIC: The right lateral ankle incision with dressing in place. No purulence clean. No fluctuance. No hardware visible. CENTRAL NERVOUS SYSTEM: Alert and oriented x 3. Grossly nonfocal. MUSCULOSKELETAL: Bilateral knee replacement. ankle dressing not opened Labs Lab Laboratory Tests Test 07/31/18 05:45 Sodium Level 145 mmol/L (136-145) Potassium Level 3.4 mmol/L (3.5-5.1) Chloride Level 108 mmol/L (98-107) Carbon Dioxide Level 28 mmol/L (21-32) Anion Gap 9 (6-14) Blood Urea Nitrogen 12 mg/dL (8-26) Creatinine 0.8 mg/dL (0.7-1.3) Estimated GFR (Cockcroft-Gault) 95.3 Glucose Level 74 mg/dL (70-99) Calcium Level 8.8 mg/dL (8.5-10.1) Micro Microbiology 07/29/18 Anaerobic/Aerobic Culture, Resulted Pending 07/29/18 Anaerobic Culture Result 1 (DANNIE), Resulted Pending 07/29/18 Aerobic Culture, Resulted Pending 07/29/18 Aerobic Culture Result 1 (DANNIE), Resulted Pending 07/29/18 Gram Stain - Final, Resulted 07/29/18 Gram Stain Result 1 (DANNIE) - Final, Resulted 07/29/18 Gram Stain Result 2 (DANNIE) - Final, Resulted Objective Assessment 1. Lactic acidosis, last wk, resolved 2. Right ankle post-surgery infection with Enterobacter and Enterococcus s/p hardware removal 07/29/17 faecalis, on IV Invanz, and dapto 3. Right ankle fracture. 4. Coronary artery disease. 5. Hypotension with history of underlying hypertension.resolved 6. Congestive heart failure. Plan Plan of Care meropenem and dapto supportive care MARITO MCKEON MD Jul 31, 2018 09:30
[2018-07-31 10:41] VITALS: BP 179/99
--- NOTE | 2018-07-31 10:49 | PDOC ---
PROGRESS NOTES Chief Complaint Chief Complaint 1. Lactic acidosis, last wk, resolved 2. Right ankle post-surgery infection with Enterobacter and Enterococcus s/p hardware removal 07/29/17 faecalis, on IV Invanz, and dapto 3. Right ankle fracture. 4. Coronary artery disease. 5. Hypotension with history of underlying hypertension.resolved 6. Congestive heart failure.stable 7. NOn injury fall x 2 (07/29/18) 8/ MEt enceph, hx etohism, also poss dementia vs cognitive impairment History of Present Illness History of Present Illness he has no complaints but he is confused at times For PAT evaluation Came from [facility] Now has a PICC line Planned for IV abxto [facility] or home with home health versus psych facility? pending PAT Assessment PLAN: IV antibiotics per ID and other supportive meds Pat will reassess today Possible DC tomorrow either home health versus [facility] Vitals Vitals Vital Signs Date Time Temp Pulse Resp B/P (MAP) Pulse Ox O2 Delivery O2 Flow Rate FiO2 07/31/18 10:41 98.4 80 17 179/99 (125) 94 Room Air 98.4 Physical Exam Physical Exam GENERAL: Alert, oriented x 3 male, in no acute distress. HEENT: Normocephalic, atraumatic, anicteric. NECK: Supple. No JVD. LUNGS: Clear bilaterally. HEART: S1, S2 regular. ABDOMEN: Benign. EXTREMITIES: No edema, no cyanosis. DERMATOLOGIC: The right lateral ankle incision with dressing in place. No purulence clean. No fluctuance. No hardware visible. CENTRAL NERVOUS SYSTEM: Alert and oriented x 3. Grossly nonfocal. MUSCULOSKELETAL: Bilateral knee replacement. ankle dressing not opened General: Alert, Oriented X3, Cooperative, mild distress Lungs: Clear Abdomen: Normal bowel sounds, Soft Extremities: No cyanosis, Normal pulses Skin: No significant lesion Labs LABS Laboratory Tests Test 07/31/18 05:45 Sodium Level 145 mmol/L (136-145) Potassium Level 3.4 mmol/L (3.5-5.1) Chloride Level 108 mmol/L (98-107) Carbon Dioxide Level 28 mmol/L (21-32) Anion Gap 9 (6-14) Blood Urea Nitrogen 12 mg/dL (8-26) Creatinine 0.8 mg/dL (0.7-1.3) Estimated GFR (Cockcroft-Gault) 95.3 Glucose Level 74 mg/dL (70-99) Calcium Level 8.8 mg/dL (8.5-10.1) Review of Systems Review of Systems A 14 point ROS was completed with the following noted as positive: Other systems reviewed and negative. \CONSTITUTIONAL: No fever or chills EYES: No recent changes SKIN: No rash or itching CARDIOVASCULAR: No chest pain, syncope, palpitations, or edema RESPIRATORY: No SOB or cough GASTROINTESTINAL: No nausea, vomiting or abdominal pain NEUROLOGICAL: No headaches or weakness ENDOCRINE: No cold or heat intolerance GENITOURINARY: No urgency or frequency of urination MUSCULOSKELETAL: No back pain or joint pain LYMPHATICS: No enlarged lymph nodes PSYCHIATRIC: No anxiety or depression Comment Review of Relevant I have reviewed the following items carl (where applicable) has been applied. Labs Laboratory Tests Test 07/29/18 15:05 07/31/18 05:45 Urine Opiates Screen Pos (NEG) Urine Methadone Screen Neg (NEG) Urine Barbiturates Neg (NEG) Urine Phencyclidine Screen Neg (NEG) Urine Amphetamine/Methamphetamine Neg (NEG) Urine Benzodiazepines Screen Neg (NEG) Urine Cocaine Screen Neg (NEG) Urine Cannabinoids Screen Neg (NEG) Urine Ethyl Alcohol Pos (NEG) Sodium Level 145 mmol/L (136-145) Potassium Level 3.4 mmol/L (3.5-5.1) Chloride Level 108 mmol/L (98-107) Carbon Dioxide Level 28 mmol/L (21-32) Anion Gap 9 (6-14) Blood Urea Nitrogen 12 mg/dL (8-26) Creatinine 0.8 mg/dL (0.7-1.3) Estimated GFR (Cockcroft-Gault) 95.3 Glucose Level 74 mg/dL (70-99) Calcium Level 8.8 mg/dL (8.5-10.1) Laboratory Tests Test 07/31/18 05:45 Sodium Level 145 mmol/L (136-145) Potassium Level 3.4 mmol/L (3.5-5.1) Chloride Level 108 mmol/L (98-107) Carbon Dioxide Level 28 mmol/L (21-32) Anion Gap 9 (6-14) Blood Urea Nitrogen 12 mg/dL (8-26) Creatinine 0.8 mg/dL (0.7-1.3) Estimated GFR (Cockcroft-Gault) 95.3 Glucose Level 74 mg/dL (70-99) Calcium Level 8.8 mg/dL (8.5-10.1) Microbiology 07/29/18 Anaerobic/Aerobic Culture, Resulted Pending 07/29/18 Anaerobic Culture Result 1 (DANNIE), Resulted Pending 07/29/18 Aerobic Culture, Resulted Pending 07/29/18 Aerobic Culture Result 1 (DANNIE), Resulted Pending 07/29/18 Gram Stain - Final, Resulted 07/29/18 Gram Stain Result 1 (DANNIE) - Final, Resulted 07/29/18 Gram Stain Result 2 (DANNIE) - Final, Resulted Medications Current Medications Ondansetron HCl (Zofran) 4 mg PRN Q6HRS PRN IV NAUSEA/VOMITING; Start 07/29/18 at 07:00; Stop 07/29/18 at 20:00; Status DC Fentanyl Citrate (Fentanyl 2ml Vial) 25 mcg PRN Q5MIN PRN IV MILD PAIN; Start 07/29/18 at 07:00; Stop 07/29/18 at 20:00; Status DC Fentanyl Citrate (Fentanyl 2ml Vial) 50 mcg PRN Q5MIN PRN IV MODERATE TO SEVERE PAIN Last administered on 07/29/18at 11:48; Start 07/29/18 at 07:00; Stop at 20:00; Status DC Morphine Sulfate (Morphine Sulfate) 1 mg PRN Q10MIN PRN IV SEVERE PAIN; Start 07/29/18 at 07:00; Stop 07/29/18 at 20:00; Status DC Ringer's Solution 1,000 ml @ 30 mls/hr Q24H IV Last administered on 07/29/18at 07:00; Start 07/29/18 at 07:00; Stop 07/29/18 at 18:59; Status DC Hydromorphone HCl (Dilaudid) 0.5 mg PRN Q10MIN PRN IV SEV PAIN, Second choice; Start 07/29/18 at 07:00; Stop 07/29/18 at 20:00; Status DC Prochlorperazine Edisylate (Compazine) 5 mg PACU PRN PRN IV NAUSEA, MRX1; Start 07/29/18 at 07:00; Stop 07/29/18 at 20:00; Status DC Cefazolin Sodium/ Dextrose 50 ml @ 100 mls/hr 1X PREOP PRN IV PRIOR TO PROCEDURE Last administered on 07/29/18at 09:20; Start 07/29/18 at 06:00; Stop 07/29 at 18:00; Status DC Bupivacaine HCl/ Epinephrine Bitart (Sensorcaine-Epi 0.25%-1:[id number] Mpf) 30 ml STK-MED ONCE .ROUTE ; Start 07/29/18 at 06:11; Stop 07/29/18 at 07:12; Status DC Midazolam HCl (Versed) 2 mg STK-MED ONCE .ROUTE ; Start 07/29/18 at 08:45; Stop 07/29/18 at 08:46; Status DC Fentanyl Citrate (Fentanyl 2ml Vial) 100 mcg STK-MED ONCE .ROUTE ; Start at 08:45; Stop 07/29/18 at 08:46; Status DC Sevoflurane (Ultane) 60 ml STK-MED ONCE IH ; Start 07/29/18 at 08:45; Stop at 08:46; Status DC Dexamethasone Sodium Phosphate (Decadron) 20 mg STK-MED ONCE .ROUTE ; Start 07/29 at 08:45; Stop 07/29/18 at 08:46; Status DC Propofol 20 ml @ As Directed STK-MED ONCE IV ; Start 07/29/18 at 08:45; Stop 07/29 at 08:46; Status DC Lidocaine HCl (Lidocaine Pf 2% Vial) 5 ml STK-MED ONCE .ROUTE ; Start 07/29/18 at 08:45; Stop 07/29/18 at 08:46; Status DC Ondansetron HCl (Zofran) 4 mg STK-MED ONCE .ROUTE ; Start 07/29/18 at 08:45; Stop 07/29/18 at 08:46; Status DC Ketorolac Tromethamine (Toradol For Or Only) 30 mg STK-MED ONCE INJ ; Start 07/29 at 08:46; Stop 07/29/18 at 08:47; Status DC Famotidine (Pepcid Vial) 20 mg STK-MED ONCE .ROUTE ; Start 07/29/18 at 08:55; Stop 07/29/18 at 08:56; Status DC Ephedrine Sulfate (ePHEDrine PF IN SALINE SYRINGE) 50 mg STK-MED ONCE IV ; Start 07/29/18 at 09:31; Stop 07/29/18 at 09:32; Status DC Fentanyl Citrate (Fentanyl 2ml Vial) 100 mcg STK-MED ONCE .ROUTE ; Start at 10:53; Stop 07/29/18 at 10:54; Status DC Oxycodone HCl (Roxicodone) 5 mg PRN Q3HRS PRN PO BREAKTHROUGH PAIN Last administered on 07/30/18at 09:37; Start 07/29/18 at 11:00 Morphine Sulfate (Morphine Sulfate) 2 mg PRN Q1HR PRN IV SEVERE PAIN, 1ST CHOICE; Start 07/29/18 at 11:00 Fentanyl Citrate (Fentanyl 2ml Vial) 25 mcg PRN Q1HR PRN IV PAIN; Start at 11:00 Senna/Docusate Sodium (Senna Plus) 1 tab DAILY PO Last administered on at 08:35; Start 07/30/18 at 09:00 Polyethylene Glycol (miraLAX PACKET) 17 gm PRN DAILY PRN PO CONSTIPATION; Start 07/29/18 at 11:00 Sodium Chloride 1,000 ml @ 75 mls/hr [id number] IV ; Start 07/29/18 at 14:00; Stop 07/30/18 at 09:52; Status DC Ondansetron HCl (Zofran) 4 mg PRN Q4HRS PRN IV NAUSEA/VOMITING; Start 07/29/18 at 11:00 Calcium Carbonate/ Glycine (Tums) 500 mg PRN QID PRN PO INDIGESTION; Start 07/29 at 11:00 Aspirin (Carmen Aspirin) 325 mg DAILYWBKFT PO Last administered on 07/31/18at 08: 36; Start 07/30/18 at 08:00 Magnesium Hydroxide (Milk Of Magnesia) 2,400 mg 1X PRN PRN PO CONSTIPATION; Start 07/30/18 at 06:00; Stop 07/31/18 at 06:00; Status DC Bisacodyl (Dulcolax Supp) 10 mg 1X PRN PRN SD CONSTIPATION; Start 07/30/18 at 16:00; Stop 07/31/18 at 15:59 Acetaminophen/ Hydrocodone Bitart (Lortab 7.5/325) 1 tab PRN Q4HRS PRN PO MODERATE PAIN Last administered on 07/31/18at 08:36; Start 07/29/18 at 11:00 Morphine Sulfate (Morphine Sulfate) 4 mg PRN Q2HR PRN IV SEVERE PAIN, 2ND CHOICE; Start 07/29/18 at 11:00 Acetaminophen/ Hydrocodone Bitart (Lortab 7.5/325) 2 tab PRN Q4HRS PRN PO SEVERE PAIN; Start 07/29/18 at 11:00 Dextrose (Dextrose 50%-Water Syringe) 12.5 gm PRN Q15MIN PRN IV SEE COMMENTS; Start 07/29/18 at 11:00 Cefazolin Sodium/ Dextrose 50 ml @ 100 mls/hr Q6H IV ; Start 07/29/18 at 15:30; Stop 07/29/18 at 15:30; Status DC Ergocalciferol (Vitamin D2) 50,000 unit Tu PO ; Start 08/05/18 at 09:00 Ferrous Sulfate (Feosol) 325 mg BID PO Last administered on 07/31/18at 08:35; Start 07/29/18 at 21:00 Rivaroxaban (Xarelto) 15 mg BIDWMEALS PO Last administered on 07/31/18at 08:35; Start 07/29/18 at 17:00 Tramadol HCl (Ultram) 50 mg PRN TID PRN PO MILD PAIN; Start 07/29/18 at 11:00 Non-Formulary Medication (Losartan/ Hydrochlorothiazide (Losartan-Hctz 100-25 Mg Tab)) 1 tab DAILY PO ; Start 07/30/18 at 09:00; Status UNV Albuterol/ Ipratropium (Duoneb) 3 ml STK-MED ONCE .ROUTE ; Start 07/29/18 at 11: 31; Stop 07/29/18 at 11:32; Status DC Albuterol/ Ipratropium (Duoneb) 3 ml 1X ONCE NEB ; Start 07/29/18 at 11:45; Stop 07/29/18 at 12:28; Status DC Losartan Potassium (Cozaar) 100 mg DAILY PO Last administered on 07/31/18at 08: 35; Start 07/30/18 at 09:00 Hydrochlorothiazide (Hydrodiuril) 25 mg DAILY PO Last administered on at 08:35; Start 07/30/18 at 09:00 Albuterol Sulfate (Ventolin Neb Soln) 2.5 mg PRN Q6HRS PRN INH SHORTNESS OF BREATH; Start 07/29/18 at 13:00 Acetaminophen/ Hydrocodone Bitart (Lortab 7.5/325) 1 tab PRN Q4HRS PRN PO PAIN MILD/MOD 1ST CHOICE; Start 07/29/18 at 13:00; Status UNV Multivitamins 10 ml/Thiamine HCl 100 mg/Folic Acid 1 mg/Sodium Chloride 1,011.2 ml @ 100 mls/ hr 1X ONCE IV Last administered on 07/29/18 14:29; Start at 14:30; Stop 07/30/18 at 00:36; Status DC Multivitamins (Thera M Plus) 1 tab DAILY PO Last administered on 07/31/18at 08: 35; Start 07/30/18 at 09:00 Folic Acid (Folic Acid) 1 mg DAILY PO Last administered on 07/31/18 08:35; Start 07/30/18 at 09:00 Lorazepam (Ativan) 2 mg Q6H PO Last administered on 07/30/18at 13:34; Start 07/29 at 14:00; Stop 07/30/18 at 20:01; Status DC Thiamine Mononitrate (Vitamin B-1) 100 mg DAILY PO Last administered on at 08:35; Start 07/30/18 at 09:00 Daptomycin 680 mg/ Sodium Chloride 50 ml @ 100 mls/hr Q24H IV Last administered on 07/30/18at 17:14; Start 07/29/18 at 15:00 Meropenem 1 gm/ Sodium Chloride 100 ml @ 200 mls/hr Q8HRS IV Last administered on 07/31/18at 06:13; Start 07/29/18 at 15:00 Info (Anti-Coagulation Monitoring By Pharmacy) 1 each PRN DAILY PRN MC SEE COMMENTS; Start 07/29/18 at 15:00 Potassium Chloride (Klor-Con) 40 meq 1X ONCE PO Last administered on at 15:10; Start 07/30/18 at 14:30; Stop 07/30/18 at 14:31; Status DC Lactobacillus Rhamnosus (Culturelle) 1 cap BID PO Last administered on at 08:36; Start 07/30/18 at 21:00 Active Scripts Active Xarelto (Rivaroxaban) 10 Mg Tablet 10 Mg PO BID Hydrocodone-Apap 7.5-325 (Hydrocodone Bit/Acetaminophen) 1 Tab Tablet 1 Tab PO PRN Q4HRS PRN MDD 1 10 Days Vitamin D2 (Ergocalciferol (Vitamin D2)) 50,000 Unit Capsule 50,000 Unit PO TU 7 Days Reported Atorvastatin Calcium 20 Mg Tablet 20 Mg PO HS PRN Tramadol Hcl 50 Mg Tablet 50 Mg PO PRN TID PRN Losartan-Hctz 100-25 Mg Tab (Losartan/Hydrochlorothiazide) 1 Each Tablet 1 Tab PO DAILY Ferrous Sulfate 325 Mg Tablet 325 Mg PO BID Proair Hfa Inhaler (Albuterol Sulfate) 8.5 Gm Hfa.aer.ad 2 Puff INH PRN Q6HRS PRN Vitals/I & O Vital Sign - Last 24 Hours 07/30/18 07/30/18 07/30/18 07/30/18 11:28 15:08 19:00 20:47 Temp 97.6 97.4 98.7 97.6 97.4 98.7 Pulse 71 80 82 Resp 18 18 18 B/P (MAP) 146/75 (98) 140/68 (92) 141/69 (93) Pulse Ox 94 90 93 O2 Delivery Room Air Room Air Room Air Room Air 07/30/18 07/31/18 07/31/18 07/31/18 23:00 03:00 07:00 08:35 Temp 97.7 97.2 98.2 97.7 97.2 98.2 Pulse 79 75 89 89 Resp 20 20 14 B/P (MAP) 141/68 (92) 157/92 (113) 163/91 (115) 163/91 Pulse Ox 93 93 O2 Delivery Room Air Room Air 07/31/18 07/31/18 07/31/18 08:36 09:53 10:41 Temp 98.4 98.4 Pulse 80 Resp 17 B/P (MAP) 179/99 (125) Pulse Ox 93 93 94 O2 Delivery Room Air Room Air Room Air Intake and Output 07/30/18 07/30/18 07/31/18 14:59 22:59 06:59 Intake Total 360 ml 240 ml 220 ml Output Total 650 ml 500 ml 1200 ml Balance -290 ml -260 ml -980 ml JAZMIN OSULLIVAN MD Jul 31, 2018 10:49
[2018-07-31] MEDS ORDERED: LABETALOL 20 MG/4 ML DISP.SYRIN. IVP PRN (13:15)
[2018-07-31 14:54] VITALS: BP 141/84
[2018-07-31] MEDS: DAPTOmycin (GENERIC) IVPB 680 MG in IV NORMAL SALINE 50ML 50 ML IV SCH (16:42)
[2018-07-31 19:15] VITALS: BP 152/89
[2018-07-31 23:09] VITALS: BP 144/69
[2018-08-01 03:30] VITALS: BP 144/68
[2018-08-01] MEDS: MEROPENEM 1 GM in IV NORMAL SALINE 100ML 100 ML IV SCH ×2 (05:09→13:47)
[2018-08-01] MEDS: HYDROcodone/APAP 7.5/325MG 1 TAB TABLET PO PRN ×3 (05:13→13:44)
[2018-08-01 07:00] VITALS: BP 150/84
[2018-08-01] MEDS: LOSARTAN POTASSIUM 50 MG TABLET. PO SCH (09:34)
[2018-08-01] MEDS: hydroCHLOROthiazide 25 MG TABLET PO SCH (09:34)
[2018-08-01] MEDS: THIAMINE 100 MG TABLET. PO SCH (09:34)
[2018-08-01] MEDS: MULTIVITAMIN with MINERAL TABLET. PO SCH (09:34)
[2018-08-01] MEDS: LACTOBACILLUS RHAMNOSUS GG 1 CAPSULE. PO SCH (09:35)
[2018-08-01] MEDS: SENNOSIDES/DOCUSATE 8.6/50MG TABLET. PO SCH (09:35)
[2018-08-01] MEDS: ASPIRIN 325 MG TABLET PO SCH (09:35)
[2018-08-01] MEDS: FERROUS SULFATE 325 MG TABLET. PO SCH (09:35)
[2018-08-01] MEDS: RIVAROXABAN 15 MG TABLET. PO SCH (09:35)
[2018-08-01] MEDS: FOLIC ACID 1 MG TABLET. PO SCH (09:35)
[2018-08-01] MEDS: NYSTATIN TOPICAL POWDER 15GM BOTTLE. TP SCH ×2 (09:40→13:42)
--- NOTE | 2018-08-01 10:49 | PDOC ---
Infectious Disease Note Subjective Subjective pt is feeling good ROS ROS no n/v/d/sob Vital Sign Vital Signs Vital Signs Date Time Temp Pulse Resp B/P (MAP) Pulse Ox O2 Delivery O2 Flow Rate FiO2 08/01/18 09:36 Room Air 08/01/18 09:34 77 150/84 08/01/18 07:00 97.7 18 96 97.7 Physical Exam PHYSICAL EXAM GENERAL: Alert, oriented x 3 male, in no acute distress. HEENT: Normocephalic, atraumatic, anicteric. NECK: Supple. No JVD. LUNGS: Clear bilaterally. HEART: S1, S2 regular. ABDOMEN: Benign. EXTREMITIES: No edema, no cyanosis. DERMATOLOGIC: The right lateral ankle incision with dressing in place. No purulence clean. No fluctuance. No hardware visible. CENTRAL NERVOUS SYSTEM: Alert and oriented x 3. Grossly nonfocal. MUSCULOSKELETAL: Bilateral knee replacement. ankle incision looks good Labs Micro Microbiology 07/29/18 Anaerobic/Aerobic Culture, Resulted Pending 07/29/18 Anaerobic Culture Result 1 (DANNIE), Resulted Pending 07/29/18 Aerobic Culture, Resulted Pending 07/29/18 Aerobic Culture Result 1 (DANNIE), Resulted Pending 07/29/18 Gram Stain - Final, Resulted 07/29/18 Gram Stain Result 1 (DANNIE) - Final, Resulted 07/29/18 Gram Stain Result 2 (DANNIE) - Final, Resulted Objective Assessment 1. Lactic acidosis, last wk, resolved 2. Right ankle post-surgery infection with Enterobacter and Enterococcus s/p hardware removal 07/29/17 faecalis, on IV Invanz, and dapto 3. Right ankle fracture. 4. Coronary artery disease. 5. Hypotension with history of underlying hypertension.resolved 6. Congestive heart failure. Plan Plan of Care meropenem and dapto supportive care Cast will be placed by dr Dalal home on invanz and po zyvox for 2 wks or more depending on incision d/w dr Dalal wkly cbc, bun/cr, sed rate f/u with me in 2 wks MARITO MCKEON MD Aug 01, 2018 10:49
[2018-08-01 11:00] VITALS: BP 170/102
--- NOTE | 2018-08-01 11:08 | PDOC ---
PROGRESS NOTES Subjective Subjective feeling well. ankle feels better than preop. Objective Vital Signs Vital Signs Date Time Temp Pulse Resp B/P (MAP) Pulse Ox O2 Delivery O2 Flow Rate FiO2 08/01/18 09:36 Room Air 08/01/18 09:34 77 150/84 08/01/18 07:00 97.7 18 96 97.7 07/29/18 11:00 10.0 Physical Exam Dressing and splint removed. Incision with some bloody drainage only. Cleansed with Chlorhexidine and then dressed with Acticoat, ABD, and the well padded short leg fiberglass cast. Toes NVI and no signs of DVT. Labs Laboratory Tests Test 07/31/18 05:45 Sodium Level 145 mmol/L (136-145) Potassium Level 3.4 mmol/L (3.5-5.1) Chloride Level 108 mmol/L (98-107) Carbon Dioxide Level 28 mmol/L (21-32) Anion Gap 9 (6-14) Blood Urea Nitrogen 12 mg/dL (8-26) Creatinine 0.8 mg/dL (0.7-1.3) Estimated GFR (Cockcroft-Gault) 95.3 Glucose Level 74 mg/dL (70-99) Calcium Level 8.8 mg/dL (8.5-10.1) Assessment Assessment s/p hardware removal of infected ankle fracture with open wound Plan Plan of Care Will need additional cast treatment of fracture. IV antibiotics for deep infection, although should be resolving now that hardware is out. There is no longer an open wound so that issue is resolved. Remain nonweightbearing. He's been noncompliant with weightbearing before, so SNU is needed for care. RYAN KHAN MD Aug 01, 2018 11:08
[2018-08-01] MEDS ORDERED: LINE600I PO (11:14)
[2018-08-01] MEDS ORDERED: HYDR-2765 PO (11:14)
--- NOTE | 2018-08-01 11:16 | SNU/HH DC ---
DISCHARGE ORDERS DISCHARGE INFORMATION: CONDITION ON DISCHARGE: Stable CODE STATUS: Code Status: Full CUSTODIAL: SNF STAY <30 DAYS: Yes HOSPICE: HOSPICE: No LTAC: ADMIT TO LTAC: No POST DISCHARGE ORDERS: ACTIVITY ORDERS: Other, see below WEIGHT BEARING STATUS: Non weight bearing BATHING ORDERS: Shower-keep dressing dry DIET AFTER DISCHARGE: Cardiac WOUND/INCISION CARE: Keep wound/cast CDI, Keep wound elevated, Reinforce dressing PRN CHECKS AFTER DISCHARGE: CHECKS AFTER DISCHARGE: Check blood press - daily FOLLOW-UP: PHYSICIAN FOLLOW-UP: follow up with Dr. Dalal in two weeks. Call for appointment ADDITIONAL FOLLOW-UP: follow up with Dr. Zaid Juares in two weeks. Call for appointment. LAB ORDERS FOR FOLLOW-UP: see Dr. Juares's orders TREATMENT/EQUIPMENT ORDERS: ADAPTIVE EQUIPMENT NEEDED: Front wheeled walker Physical Therapy For: Evalulation/Treatment Occupational Therapy For: Evaluation/Treatment Speech Language Pathology For: Evaluation/Treatment DISCHARGE MEDICATIONS: Home Meds Active Scripts Rivaroxaban (XARELTO) 10 Mg Tablet, 10 MG PO BID for 7, #20 TAB Prov:JAZMIN OSULLIVAN MD 07/19/18 Hydrocodone Bit/Acetaminophen (HYDROCODONE-APAP 7.5-325 ) 1 Tab Tablet, 1 TAB PO PRN Q4HRS PRN for PAIN MILD/MOD 1ST CHOICE MDD 1 for 10 Days, #20 TAB Prov:JAZMIN OSULLIVAN MD 06/19/18 Ergocalciferol (Vitamin D2) (VITAMIN D2) 50,000 Unit Capsule, 79942 UNIT PO Tu for ONCE A WEEK SUPPLEMENT-BONES for 7 Days, #7 CAP Prov:DUKE DE PAZ MD 05/07/18 Reported Medications Atorvastatin Calcium (ATORVASTATIN CALCIUM) 20 Mg Tablet, 20 MG PO HS PRN for HLD, #30 TAB 0 Refills 07/29/18 Tramadol Hcl (TRAMADOL HCL) 50 Mg Tablet, 50 MG PO PRN TID PRN for PAIN, TAB 07/15/18 Losartan/Hydrochlorothiazide (LOSARTAN-HCTZ 100-25 MG TAB) 1 Each Tablet, 1 TAB PO DAILY for htn, #30 TAB 5 Refills 05/03/18 Ferrous Sulfate (FERROUS SULFATE) 325 Mg Tablet, 325 MG PO BID, TAB 05/08/17 Albuterol Sulfate (PROAIR HFA INHALER) 8.5 Gm Hfa.aer.ad, 2 PUFF INH PRN Q6HRS PRN for SHORTNESS OF BREATH, INHALER 0 Refills 05/07/17 Discontinued Reported Medications Polyethylene Glycol 3350 (POLYETHYLENE GLYCOL 3350) 2,500 Gm Powder, 17 GM PO PRN DAILY PRN for CONSTIPATION, #255 GM 05/08/17 Aspirin (ASPIRIN) 81 Mg Tab.chew, 81 MG PO DAILY, TAB.CHEW 05/07/17 RYAN DALAL MD Aug 01, 2018 11:16
--- NOTE | 2018-08-01 11:21 | PDOC3 ---
Discharge Summary Visit Information Date of Admission: Jul 29, 2018 Date of Discharge: Aug 01, 2018 Admitting Diagnosis: open wound right ankle. ankle fracture. painful hardware Final Diagnosis same Brief Hospital Course Allergies Allergies Coded Allergies Type Severity Reaction Last Updated Verified iodine Allergy Intermediate 07/31/18 Yes shellfish derived Allergy Mild makes him drowsy 07/29/18 Yes Vital Signs Vital Signs Date Time Temp Pulse Resp B/P (MAP) Pulse Ox O2 Delivery O2 Flow Rate FiO2 08/01/18 09:36 Room Air 08/01/18 09:34 77 150/84 08/01/18 07:00 97.7 18 96 97.7 Lab Results Laboratory Tests Test 07/31/18 05:45 Sodium Level 145 mmol/L (136-145) Potassium Level 3.4 mmol/L (3.5-5.1) Chloride Level 108 mmol/L (98-107) Carbon Dioxide Level 28 mmol/L (21-32) Anion Gap 9 (6-14) Blood Urea Nitrogen 12 mg/dL (8-26) Creatinine 0.8 mg/dL (0.7-1.3) Estimated GFR (Cockcroft-Gault) 95.3 Glucose Level 74 mg/dL (70-99) Calcium Level 8.8 mg/dL (8.5-10.1) Brief Hospital Course 73 year old with previous ankle fracture and ORIF. Has been treated with IV antibiotics for infection and open wound but wasn't improving. Hardware removal recommended for wound healing and to clear infection. Patient admitted and hardware removed in OR the day of admission under general anesthesia. Fracture is not completely healed, so further immobilization will be necessary. The open wound was able to be closed. Discharge Information Condition at Discharge: Stable Follow Up: Weeks Disposition/Orders: D/C to Another Facility Scheduled Ergocalciferol (Vitamin D2) (Vitamin D2), 50,000 UNIT PO Tu Ferrous Sulfate (Ferrous Sulfate), 325 MG PO BID, (Reported) Losartan/Hydrochlorothiazide (Losartan-Hctz 100-25 Mg Tab), 1 TAB PO DAILY, ( Reported) Rivaroxaban (Xarelto), 10 MG PO BID Scheduled PRN Albuterol Sulfate (Proair Hfa Inhaler), 2 PUFF INH PRN Q6HRS PRN for SHORTNESS OF BREATH, (Reported) Atorvastatin Calcium (Atorvastatin Calcium), 20 MG PO HS PRN for HLD, (Reported) Hydrocodone Bit/Acetaminophen (Hydrocodone-Apap 7.5-325 ), 1 TAB PO PRN Q4HRS PRN for PAIN MILD/MOD 1ST CHOICE Tramadol Hcl (Tramadol Hcl), 50 MG PO PRN TID PRN for PAIN, (Reported) Discontinued Medications Aspirin (Aspirin), 81 MG PO DAILY, (Reported) Polyethylene Glycol 3350 (Polyethylene Glycol 3350), 17 GM PO PRN DAILY PRN for CONSTIPATION, (Reported) Patient Instructions Patient Instructions Nonweightbearing RLE Keep cast intact and dry. Continue abx per ID SNU for care Follow up with Dr. Juares in 2 weeks, [address] Dr. Dalal in 2 weeks RYAN DALAL MD Aug 01, 2018 11:21
--- NOTE | 2018-08-01 11:56 | PDOC ---
PROGRESS NOTES Chief Complaint Chief Complaint 1. Lactic acidosis, last wk, resolved 2. Right ankle post-surgery infection with Enterobacter and Enterococcus s/p hardware removal 07/29/17 faecalis, on IV Invanz, and dapto 3. Right ankle fracture. 4. Coronary artery disease. 5. Hypotension with history of underlying hypertension.resolved 6. Congestive heart failure.stable 7. NOn injury fall x 2 (07/29/18) 8/ MEt enceph, hx etohism, also poss dementia vs cognitive impairment History of Present Illness History of Present Illness PLanned For DC today by primary service-Dr. Katlin Boss PICC line in place Pain medicine and Zyvox on chart Patient seen and examined Plan No objections to DC today Vitals Vitals Vital Signs Date Time Temp Pulse Resp B/P (MAP) Pulse Ox O2 Delivery O2 Flow Rate FiO2 08/01/18 09:36 Room Air 08/01/18 09:34 77 150/84 08/01/18 07:00 97.7 18 96 97.7 Physical Exam Physical Exam GENERAL: Alert, oriented x 3 male, in no acute distress. HEENT: Normocephalic, atraumatic, anicteric. NECK: Supple. No JVD. LUNGS: Clear bilaterally. HEART: S1, S2 regular. ABDOMEN: Benign. EXTREMITIES: No edema, no cyanosis. DERMATOLOGIC: The right lateral ankle incision with dressing in place. No purulence clean. No fluctuance. No hardware visible. CENTRAL NERVOUS SYSTEM: Alert and oriented x 3. Grossly nonfocal. MUSCULOSKELETAL: Bilateral knee replacement. ankle incision looks good General: Alert, Oriented X3, Cooperative, mild distress Lungs: Clear Abdomen: Normal bowel sounds, Soft Extremities: No cyanosis, Normal pulses Skin: No significant lesion Review of Systems Review of Systems A 14 point ROS was completed with the following noted as positive: Other systems reviewed and negative. \CONSTITUTIONAL: No fever or chills EYES: No recent changes SKIN: No rash or itching CARDIOVASCULAR: No chest pain, syncope, palpitations, or edema RESPIRATORY: No SOB or cough GASTROINTESTINAL: No nausea, vomiting or abdominal pain NEUROLOGICAL: No headaches or weakness ENDOCRINE: No cold or heat intolerance GENITOURINARY: No urgency or frequency of urination MUSCULOSKELETAL: No back pain or joint pain LYMPHATICS: No enlarged lymph nodes PSYCHIATRIC: No anxiety or depression Comment Review of Relevant I have reviewed the following items carl (where applicable) has been applied. Labs Laboratory Tests Test 07/31/18 05:45 Sodium Level 145 mmol/L (136-145) Potassium Level 3.4 mmol/L (3.5-5.1) Chloride Level 108 mmol/L (98-107) Carbon Dioxide Level 28 mmol/L (21-32) Anion Gap 9 (6-14) Blood Urea Nitrogen 12 mg/dL (8-26) Creatinine 0.8 mg/dL (0.7-1.3) Estimated GFR (Cockcroft-Gault) 95.3 Glucose Level 74 mg/dL (70-99) Calcium Level 8.8 mg/dL (8.5-10.1) Microbiology 07/29/18 Anaerobic/Aerobic Culture, Resulted Pending 07/29/18 Anaerobic Culture Result 1 (DANNIE), Resulted Pending 07/29/18 Aerobic Culture - Preliminary, Resulted 07/29/18 Aerobic Culture Result 1 (DANNIE) - Preliminary, Resulted 07/29/18 Gram Stain - Final, Resulted 07/29/18 Gram Stain Result 1 (DANNIE) - Final, Resulted 07/29/18 Gram Stain Result 2 (DANNIE) - Final, Resulted Medications Current Medications Ondansetron HCl (Zofran) 4 mg PRN Q6HRS PRN IV NAUSEA/VOMITING; Start 07/29/18 at 07:00; Stop 07/29/18 at 20:00; Status DC Fentanyl Citrate (Fentanyl 2ml Vial) 25 mcg PRN Q5MIN PRN IV MILD PAIN; Start 07/29/18 at 07:00; Stop 07/29/18 at 20:00; Status DC Fentanyl Citrate (Fentanyl 2ml Vial) 50 mcg PRN Q5MIN PRN IV MODERATE TO SEVERE PAIN Last administered on 07/29/18at 11:48; Start 07/29/18 at 07:00; Stop at 20:00; Status DC Morphine Sulfate (Morphine Sulfate) 1 mg PRN Q10MIN PRN IV SEVERE PAIN; Start 07/29/18 at 07:00; Stop 07/29/18 at 20:00; Status DC Ringer's Solution 1,000 ml @ 30 mls/hr Q24H IV Last administered on 07/29/18at 07:00; Start 07/29/18 at 07:00; Stop 07/29/18 at 18:59; Status DC Hydromorphone HCl (Dilaudid) 0.5 mg PRN Q10MIN PRN IV SEV PAIN, Second choice; Start 07/29/18 at 07:00; Stop 07/29/18 at 20:00; Status DC Prochlorperazine Edisylate (Compazine) 5 mg PACU PRN PRN IV NAUSEA, MRX1; Start 07/29/18 at 07:00; Stop 07/29/18 at 20:00; Status DC Cefazolin Sodium/ Dextrose 50 ml @ 100 mls/hr 1X PREOP PRN IV PRIOR TO PROCEDURE Last administered on 07/29/18at 09:20; Start 07/29/18 at 06:00; Stop 07/29 at 18:00; Status DC Bupivacaine HCl/ Epinephrine Bitart (Sensorcaine-Epi 0.25%-1:[id number] Mpf) 30 ml STK-MED ONCE .ROUTE ; Start 07/29/18 at 06:11; Stop 07/29/18 at 07:12; Status DC Midazolam HCl (Versed) 2 mg STK-MED ONCE .ROUTE ; Start 07/29/18 at 08:45; Stop 07/29/18 at 08:46; Status DC Fentanyl Citrate (Fentanyl 2ml Vial) 100 mcg STK-MED ONCE .ROUTE ; Start at 08:45; Stop 07/29/18 at 08:46; Status DC Sevoflurane (Ultane) 60 ml STK-MED ONCE IH ; Start 07/29/18 at 08:45; Stop at 08:46; Status DC Dexamethasone Sodium Phosphate (Decadron) 20 mg STK-MED ONCE .ROUTE ; Start 07/29 at 08:45; Stop 07/29/18 at 08:46; Status DC Propofol 20 ml @ As Directed STK-MED ONCE IV ; Start 07/29/18 at 08:45; Stop 07/29 at 08:46; Status DC Lidocaine HCl (Lidocaine Pf 2% Vial) 5 ml STK-MED ONCE .ROUTE ; Start 07/29/18 at 08:45; Stop 07/29/18 at 08:46; Status DC Ondansetron HCl (Zofran) 4 mg STK-MED ONCE .ROUTE ; Start 07/29/18 at 08:45; Stop 07/29/18 at 08:46; Status DC Ketorolac Tromethamine (Toradol For Or Only) 30 mg STK-MED ONCE INJ ; Start 07/29 at 08:46; Stop 07/29/18 at 08:47; Status DC Famotidine (Pepcid Vial) 20 mg STK-MED ONCE .ROUTE ; Start 07/29/18 at 08:55; Stop 07/29/18 at 08:56; Status DC Ephedrine Sulfate (ePHEDrine PF IN SALINE SYRINGE) 50 mg STK-MED ONCE IV ; Start 07/29/18 at 09:31; Stop 07/29/18 at 09:32; Status DC Fentanyl Citrate (Fentanyl 2ml Vial) 100 mcg STK-MED ONCE .ROUTE ; Start at 10:53; Stop 07/29/18 at 10:54; Status DC Oxycodone HCl (Roxicodone) 5 mg PRN Q3HRS PRN PO BREAKTHROUGH PAIN Last administered on 07/30/18at 09:37; Start 07/29/18 at 11:00 Morphine Sulfate (Morphine Sulfate) 2 mg PRN Q1HR PRN IV SEVERE PAIN, 1ST CHOICE; Start 07/29/18 at 11:00 Fentanyl Citrate (Fentanyl 2ml Vial) 25 mcg PRN Q1HR PRN IV PAIN; Start at 11:00 Senna/Docusate Sodium (Senna Plus) 1 tab DAILY PO Last administered on at 09:35; Start 07/30/18 at 09:00 Polyethylene Glycol (miraLAX PACKET) 17 gm PRN DAILY PRN PO CONSTIPATION; Start 07/29/18 at 11:00 Sodium Chloride 1,000 ml @ 75 mls/hr [id number] IV ; Start 07/29/18 at 14:00; Stop 07/30/18 at 09:52; Status DC Ondansetron HCl (Zofran) 4 mg PRN Q4HRS PRN IV NAUSEA/VOMITING; Start 07/29/18 at 11:00 Calcium Carbonate/ Glycine (Tums) 500 mg PRN QID PRN PO INDIGESTION; Start 07/29 at 11:00 Aspirin (Acrmen Aspirin) 325 mg DAILYWBKFT PO Last administered on 08/01/18at 09: 35; Start 07/30/18 at 08:00 Magnesium Hydroxide (Milk Of Magnesia) 2,400 mg 1X PRN PRN PO CONSTIPATION; Start 07/30/18 at 06:00; Stop 07/31/18 at 06:00; Status DC Bisacodyl (Dulcolax Supp) 10 mg 1X PRN PRN [place] CONSTIPATION; Start 07/30/18 at 16:00; Stop 07/31/18 at 15:59; Status DC Acetaminophen/ Hydrocodone Bitart (Lortab 7.5/325) 1 tab PRN Q4HRS PRN PO MODERATE PAIN Last administered on 08/01/18at 09:36; Start 07/29/18 at 11:00 Morphine Sulfate (Morphine Sulfate) 4 mg PRN Q2HR PRN IV SEVERE PAIN, 2ND CHOICE; Start 07/29/18 at 11:00 Acetaminophen/ Hydrocodone Bitart (Lortab 7.5/325) 2 tab PRN Q4HRS PRN PO SEVERE PAIN; Start 07/29/18 at 11:00 Dextrose (Dextrose 50%-Water Syringe) 12.5 gm PRN Q15MIN PRN IV SEE COMMENTS; Start 07/29/18 at 11:00 Cefazolin Sodium/ Dextrose 50 ml @ 100 mls/hr Q6H IV ; Start 07/29/18 at 15:30; Stop 07/29/18 at 15:30; Status DC Ergocalciferol (Vitamin D2) 50,000 unit Tu PO ; Start 08/05/18 at 09:00 Ferrous Sulfate (Feosol) 325 mg BID PO Last administered on 08/01/18at 09:35; Start 07/29/18 at 21:00 Rivaroxaban (Xarelto) 15 mg BIDWMEALS PO Last administered on 08/01/18at 09:35; Start 07/29/18 at 17:00 Tramadol HCl (Ultram) 50 mg PRN TID PRN PO MILD PAIN; Start 07/29/18 at 11:00 Non-Formulary Medication (Losartan/ Hydrochlorothiazide (Losartan-Hctz 100-25 Mg Tab)) 1 tab DAILY PO ; Start 07/30/18 at 09:00; Status UNV Albuterol/ Ipratropium (Duoneb) 3 ml STK-MED ONCE .ROUTE ; Start 07/29/18 at 11: 31; Stop 07/29/18 at 11:32; Status DC Albuterol/ Ipratropium (Duoneb) 3 ml 1X ONCE NEB ; Start 07/29/18 at 11:45; Stop 07/29/18 at 12:28; Status DC Losartan Potassium (Cozaar) 100 mg DAILY PO Last administered on 08/01/18 09: 34; Start 07/30/18 at 09:00 Hydrochlorothiazide (Hydrodiuril) 25 mg DAILY PO Last administered on at 09:34; Start 07/30/18 at 09:00 Albuterol Sulfate (Ventolin Neb Soln) 2.5 mg PRN Q6HRS PRN INH SHORTNESS OF BREATH; Start 07/29/18 at 13:00 Acetaminophen/ Hydrocodone Bitart (Lortab 7.5/325) 1 tab PRN Q4HRS PRN PO PAIN MILD/MOD 1ST CHOICE; Start 07/29/18 at 13:00; Status UNV Multivitamins 10 ml/Thiamine HCl 100 mg/Folic Acid 1 mg/Sodium Chloride 1,011.2 ml @ 100 mls/ hr 1X ONCE IV Last administered on 07/29/18at 14:29; Start at 14:30; Stop 07/30/18 at 00:36; Status DC Multivitamins (Thera M Plus) 1 tab DAILY PO Last administered on 08/01/18at 09: 34; Start 07/30/18 at 09:00 Folic Acid (Folic Acid) 1 mg DAILY PO Last administered on 08/01/18at 09:35; Start 07/30/18 at 09:00 Lorazepam (Ativan) 2 mg Q6H PO Last administered on 07/30/18at 13:34; Start 07/29 at 14:00; Stop 07/30/18 at 20:01; Status DC Thiamine Mononitrate (Vitamin B-1) 100 mg DAILY PO Last administered on at 09:34; Start 07/30/18 at 09:00 Daptomycin 680 mg/ Sodium Chloride 50 ml @ 100 mls/hr Q24H IV Last administered on 07/31/18at 16:42; Start 07/29/18 at 15:00 Meropenem 1 gm/ Sodium Chloride 100 ml @ 200 mls/hr Q8HRS IV Last administered on 08/01/18at 05:09; Start 07/29/18 at 15:00 Info (Anti-Coagulation Monitoring By Pharmacy) 1 each PRN DAILY PRN MC SEE COMMENTS; Start 07/29/18 at 15:00 Potassium Chloride (Klor-Con) 40 meq 1X ONCE PO Last administered on at 15:10; Start 07/30/18 at 14:30; Stop 07/30/18 at 14:31; Status DC Lactobacillus Rhamnosus (Culturelle) 1 cap BID PO Last administered on at 09:35; Start 07/30/18 at 21:00 Labetalol HCl (Normodyne Iv Push) 20 mg PRN Q2HR PRN IVP HYPERTENSION, SEE COMMENTS; Start 07/31/18 at 13:15 Nystatin (Nystop) 1 balbir QID TP Last administered on 08/01/18at 09:40; Start 04/09 at 09:00 Active Scripts Active Zyvox (Linezolid) 600 Mg/300 Ml Iv.soln 600 Mg PO BID 14 Days Hydrocodone-Apap 7.5-325 (Hydrocodone Bit/Acetaminophen) 1 Tab Tablet 2 Tab PO PRN Q4HRS PRN MDD 1 14 Days Xarelto (Rivaroxaban) 10 Mg Tablet 10 Mg PO BID Vitamin D2 (Ergocalciferol (Vitamin D2)) 50,000 Unit Capsule 50,000 Unit PO TU 7 Days Reported Atorvastatin Calcium 20 Mg Tablet 20 Mg PO HS PRN Losartan-Hctz 100-25 Mg Tab (Losartan/Hydrochlorothiazide) 1 Each Tablet 1 Tab PO DAILY Proair Hfa Inhaler (Albuterol Sulfate) 8.5 Gm Hfa.aer.ad 2 Puff INH PRN Q6HRS PRN Vitals/I & O Vital Sign - Last 24 Hours 07/31/18 07/31/18 07/31/18 07/31/18 14:54 16:44 18:03 19:15 Temp 98.3 97.5 98.3 97.5 Pulse 89 86 Resp 17 18 B/P (MAP) 141/84 (103) 152/89 (110) Pulse Ox 98 98 98 93 O2 Delivery Room Air Room Air Room Air 07/31/18 07/31/18 08/01/18 08/01/18 20:28 23:09 03:30 05:13 Temp 98.1 98.2 98.1 98.2 Pulse 75 77 Resp 18 18 B/P (MAP) 144/69 (94) 144/68 (93) Pulse Ox 92 92 O2 Delivery Room Air Room Air Room Air Room Air 08/01/18 08/01/18 08/01/18 08/01/18 06:13 07:00 09:34 09:36 Temp 97.7 97.7 Pulse 77 77 Resp 18 B/P (MAP) 150/84 (106) 150/84 Pulse Ox 96 O2 Delivery Room Air Room Air Room Air Intake and Output 07/31/18 07/31/18 08/01/18 14:59 22:59 06:59 Intake Total 200 ml 580 ml Output Total 350 ml 1200 ml 1150 ml Balance -150 ml -1200 ml -570 ml JAZMIN OSULLIVAN MD Aug 01, 2018 11:56
[2018-08-01] MEDS ORDERED: ERTAPENEM 1GM IVPB (GENERIC) 50 ML IV ONE (13:15)
[2018-08-05] MEDS ORDERED: ERGOCALCIFEROL (VITAMIN D2) 50,000 UNIT CAPSULE. PO SCH (09:00)
== END 2018-08-01 15:00 | DRG 492 ==
LOC: OPSVCIP 06:54 → EDSTATUS 10:00 → 4 NORTH 12:41
PROVIDERS: ADMIT Orthopaedic Surgery; ATTEND Orthopaedic Surgery
PROC: 0SPF04Z Removal of Internal Fixation Device from Right Ankle Joint, Open Approach (ICD-10-PCS; principal; 2018-07-29 09:15)
DX: T84.84XA Pain due to internal orthopedic prosthetic devices, implants and grafts, initial encounter (principal); A41.9 Sepsis, unspecified organism; G93.41 Metabolic encephalopathy; T81.40XA Infection following a procedure, unspecified, initial encounter; T84.293A Other mechanical complication of internal fixation device of bones of foot and toes, initial encounter; I11.0 Hypertensive heart disease with heart failure; I50.9 Heart failure, unspecified; B95.2 Enterococcus as the cause of diseases classified elsewhere; I25.10 Atherosclerotic heart disease of native coronary artery without angina pectoris; E66.01 Morbid (severe) obesity due to excess calories; F10.10 Alcohol abuse, uncomplicated; Y83.1 Surgical operation with implant of artificial internal device as the cause of abnormal reaction of the patient, or of later complication, without mention of misadventure at the time of the procedure; Y92.89 Other specified places as the place of occurrence of the external cause; Z91.041 Radiographic dye allergy status; Z91.013 Allergy to seafood; Z68.32 Body mass index [BMI] 32.0-32.9, adult
CPT/HCPCS: 36415; 73600; 80048; 80053; 80307; 82248; 85025; 87071; 87075; J0171; J0696; J0878; J1100; J1335; J1885; J2001; J2185; J2250; J2405; J2704; J3010; J3490; J7030; J7120; 97530; 97535

== ENCOUNTER → 2021-04-20 | Outpatient (CLI) | payer MEDICARE ==
[2020-08-29 11:00] VITALS: BP 163/69
[~2021-04-20] MED LIST changes: +AMOX1TAB61 PO; +ATOR20TA58 PO; -BUPIVACAINE-EPI 0.25%-1:200000 MPF 30 ML VIAL. ONE; +COLC0.6T34 PO; +HYDR12.575 PO; +LOSA1TAB19 PO; -MULT1TAB90 PO; +MULT1TAB92 PO; -PANT40TA3 PO; +PANT40TA77 PO; +POTA-121 PO; -POTA20TA4 PO; +[UNRECOGNIZED DRUG - CODE] PO
--- NOTE | 2021-04-20 16:01 | CARD ---
MR#: [id number] Date of Study: 04/20/2021 Ordering Physician: JUDY LAMB, Referring Physician: JUDY LAMB, Tech: Leslie Palacio [facility] APPROVED REPORT EXAM: Two-dimensional and M-mode echocardiogram with Doppler and color Doppler. Other Information Quality : AverageHR: 64bpm Rhythm : NSR INDICATION Dyspnea Cardiac Disease: CAD RISK FACTORS Hypertension Obesity Hyperlipidemia 2D DIMENSIONS RVDd3.8 (2.9-3.5cm)Left Atrium(2D)3.8 (1.6-4.0cm) IVSd1.2 (0.7-1.1cm)Aortic Root(2D)4.2 (2.0-3.7cm) LVDd4.8 (3.9-5.9cm)LVOT Diameter2.4 (1.8-2.4cm) PWd1.3 (0.7-1.1cm)LVDs2.5 (2.5-4.0cm) FS (%) 49.3 %SV88.6 ml LVEF(%)80.6 (>50%) Aortic Valve AoV Peak Daniel.132.8cm/sAoV VTI25.5cm AO Peak GR.7.1mmHgLVOT Peak Daniel.128.5cm/s AO Mean GR.4mmHgAVA (VMAX)4.29cm2 Mitral Valve MV E Fdastwqj66.3cm/sMV DECEL [id number] MV A Osurkvdc37.0cm/sE/A Ratio1.0 Pulmonary Valve PV Peak Ifioqdda029.1cm/s Tricuspid Valve TR P. [id number]/sTR Peak Gr.28mmHg LEFT VENTRICLE The left ventricle is normal size. There is borderline to mild concentric left ventricular hypertroph y. The left ventricular systolic function is normal and the ejection fraction is within normal range. Estimated ejection fraction 55%. There is normal LV segmental wall motion. The left ventricular kruse tolic function and filling is normal for age. RIGHT VENTRICLE The right ventricle is normal size. There is normal right ventricular wall thickness. The right ventr icular systolic function is normal. ATRIA The left atrium size is normal. The right atrium size is normal. The interatrial septum is intact wit h no evidence for an atrial septal defect or patent foramen ovale as noted on 2-D or Doppler imaging. AORTIC VALVE The aortic valve is mildly calcified with restricted leaflet motion. Doppler and Color Flow revealed trace to mild aortic regurgitation. There is no significant aortic valvular stenosis. MITRAL VALVE The mitral valve is normal in structure and function. There is no evidence of mitral valve prolapse. There is no mitral valve stenosis. Doppler and Color-flow revealed trace mitral regurgitation. TRICUSPID VALVE The tricuspid valve is normal in structure and function. Doppler and Color Flow revealed trace tricus pid regurgitation. Estimated PAP 32 mmHg. There is no tricuspid valve stenosis. PULMONIC VALVE Doppler and Color Flow revealed mild to moderate pulmonic valvular regurgitation. There is no pulmoni c valvular stenosis. GREAT VESSELS The aortic root is normal in size. The ascending aorta is normal in size. The IVC is normal in size a nd collapses >50% with inspiration. PERICARDIAL EFFUSION There is no evidence of significant pericardial effusion. Critical Notification Critical Value: No <Conclusion> The left ventricular systolic function is normal and the ejection fraction is within normal range. E stimated ejection fraction 55%. There is normal LV segmental wall motion. Signed by : Sky Andrade, Electronically Approved : 04/20/2021 16:01:41
== END ==
LOC: ECHO 11:42
PROVIDERS: ATTEND Internal Medicine Cardiovascular Disease
DX: I35.1 Nonrheumatic aortic (valve) insufficiency (principal); I37.1 Nonrheumatic pulmonary valve insufficiency; R06.09 Other forms of dyspnea; I25.10 Atherosclerotic heart disease of native coronary artery without angina pectoris
CPT/HCPCS: 93306